=== PATIENT | male | born 1935 | race Caucasian/White ===

== ENCOUNTER 2016-12-25 15:16 | Emergency (ER) | payer MEDICAID, MEDICARE, OTHER ==
[2016-12-25 15:40] VITALS: BP 112/55
--- NOTE | 2016-12-25 15:58 | UC ---
Lower Extremity/Ankle HPI - HPI Summary HPI Summary: The patient comes in today for: 1. Onset: Palliative/provocative: Quality: Region: Severity: Time: Associated symptoms: * - History of Current Complaint Chief Complaint: UCLowerExtremity Stated Complaint: LEFT HEEL COMPLAINT Time Seen by Provider: 12/25/16 15:30 - Allergies/Home Medications Allergies/Adverse Reactions: Allergies Allergy/AdvReac Type Severity Reaction Status Date / Time Levofloxacin Allergy Unknown Verified 12/25/16 15:41 Reaction Details Lisinopril Allergy Unknown Verified 12/25/16 15:41 Reaction Details ALOE VESTA SOAP Allergy Unknown Uncoded 12/25/16 15:41 Reaction Details Home Medications: Home Medications Acetaminophen TAB* [Tylenol TAB*] 650 mg PO Q4H PRN 12/25/16 [History Confirmed 12/25/16] Adalimumab [Humira Pen] 40 mg SC SEE INSTRUCTIONS 12/25/16 [History Confirmed ] Albuterol Sulfate 0.63 mg IN Q6H PRN 12/25/16 [History Confirmed 12/25/16] Amiodarone TAB* [Cordarone TAB*] 200 mg PO DAILY 12/25/16 [History Confirmed 07/03] Dermadex 20 mg PO QID 12/25/16 [History Confirmed 12/25/16] Ferrous Sulfate TAB* 325 mg PO DAILY 12/25/16 [History Confirmed 12/25/16] Fexofenadine (NF) [Ludivina (NF)] 60 mg PO DAILY 12/25/16 [History Confirmed 07/03] Potassium Chlor TAB* [Klor Con ER TAB*] 10 meq PO DAILY 12/25/16 [History Confirmed 12/25/16] Pregabalin CAP(*) [Lyrica CAP(*)] 200 mg PO BID 12/25/16 [History Confirmed 07/03] Rivaroxaban TAB(*) [Xarelto 20 mg] 20 mg PO DAILY 12/25/16 [History Confirmed ] Roflumilast [Daliresp] 500 mcg PO DAILY 12/25/16 [History Confirmed 12/25/16] Spironolactone 50 mg PO DAILY 12/25/16 [History Confirmed 12/25/16] Torsemide TAB* [Demadex*] 20 mg PO QID 12/25/16 [History Confirmed 12/25/16] PMH/Surg Hx/FS Hx/Imm Hx Endocrine History Of: Reports: Diabetes Cardiovascular History Of: Reports: Cardiac Disorders, Hypertension - Surgical History Surgical History: Yes Surgery Procedure, Year, and Place: ABD SX. 1974--TEETH EXTRACTION - Social History Alcohol Use: None Substance Use Type: None Smoking Status (MU): Former Smoker When Did the Patient Quit Smoking/Using Tobacco: 2001 Physical Exam Vital Signs: Initial Vital Signs Temp 99.1 F 12/25/16 15:20 Pulse 62 12/25/16 15:20 Resp 18 12/25/16 15:20 BP 112/55 12/25/16 15:20 Pulse Ox 96 12/25/16 15:20
--- NOTE | 2016-12-25 16:19 | UC ---
Progress - Progress Note Progress Note: The patient comes in with his aid for reasons that are not clear. He states that he was sent in because someone said that he had a problem with his right foot, but he states that he does not have any problems with his right foot. He is under care for his left foot at the wound clinic. He states that he was sent in by Dr. Laughlin." The aide that was with him was not any help in clarifying the story why he is here and what he was to be seen for. Not getting a consistent history, I called DR. BEE's office and was told that the doctor is not in the states at this time. They tell me that the visiting nurse who saw the patient was concerned about a cough that he had productive of yellow sputum. The office staff told him to come in to see us. However, when this was presented to the patient, he said that he did not have any problems with a cough. The patient was told that he could be seen for a foot problem and/or his cough. But he stated that he did not feel that he needed to be seen and just wanted to leave. While I was checking with administration how to handle the patient's request to leave without being assessed, he ended up leaving the office.
== END 2016-12-25 15:45 | disposition left against medical advice (07) ==
LOC: UCCORT 15:16
DX: M79.672 Pain in left foot (principal); Z53.21 Procedure and treatment not carried out due to patient leaving prior to being seen by health care provider

== ENCOUNTER 2017-11-13 13:31 | Emergency (ER) | payer MEDICARE ==
[2017-11-13 14:47] VITALS: BP 111/56
[2017-11-13] MEDS ORDERED: Albuterol/Ipratropium NEB.SOL* Albuterol 2.5 MG/Ipratropium 0.5 MG 3 ML INH ONE (14:51)
--- NOTE | 2017-11-13 15:02 | UC ---
Respiratory Complaint HPI - HPI Summary HPI Summary: Pt is accompanied by caregiver. Pt has history of COPD and presents with c/o worsening cough, sob, and chest congestion X 1 week. Pt reports baseline O2 saturation at 90%. - History of Current Complaint Chief Complaint: UCRespiratory Stated Complaint: UPPER RESPRITORY Time Seen by Provider: 11/13/17 14:26 Hx Obtained From: Patient Onset/Duration: Gradual Onset, Lasting Days, Still Present, Worse Since - onset Timing: Constant Severity Initially: Mild Severity Currently: Moderate Pain Intensity: 7 Character: Cough: Productive Aggravating Factors: Deep Breaths, Recumbent Position Alleviating Factors: Bronchodilator Associated Signs And Symptoms: Positive: Wheezing, URI, Nasal Congestion Related History: Seasonal Allergies - Risk Factors Pulmonary Embolism Risk Factors: Negative Cardiac Risk Factors: Hypertension, Diabetes Pseudomonas Risk Factors: Chronic Lung Disease Tuberculosis Risk Factors: Diabetes - Allergies/Home Medications Allergies/Adverse Reactions: Allergies Allergy/AdvReac Type Severity Reaction Status Date / Time levofloxacin Allergy Unknown Verified 11/13/17 14:30 Reaction Details lisinopril Allergy Unknown Verified 11/13/17 14:30 Reaction Details ALOE VESTA SOAP Allergy Unknown Uncoded 11/13/17 14:30 Reaction Details PMH/Surg Hx/FS Hx/Imm Hx Previously Healthy: Yes Cardiovascular History: Cardiac Disease, Hypertension, Pacemaker/ICD Respiratory History: COPD - Surgical History Surgical History: Yes Surgery Procedure, Year, and Place: ABD SX. 1974--TEETH EXTRACTION - Family History Known Family History: Positive: Cardiac Disease - Social History Occupation: Disabled Lives: Alone Alcohol Use: None Substance Use Type: None Smoking Status (MU): Former Smoker Have You Smoked in the Last Year: No When Did the Patient Quit Smoking/Using Tobacco: 2001 Review of Systems Constitutional: Fatigue Skin: Negative Eyes: Negative ENT: Sinus Congestion Respiratory: Shortness Of Breath, Cough Cardiovascular: Chest Pain Gastrointestinal: Negative Genitourinary: Negative Motor: Weakness Neurovascular: Negative Musculoskeletal: Negative Neurological: Negative Psychological: Negative Is Patient Immunocompromised?: No All Other Systems Reviewed And Are Negative: Yes Physical Exam Triage Information Reviewed: Yes Appearance: Ill-Appearing, Obese Vital Signs: Initial Vital Signs Temp 97.9 F 11/13/17 14:33 Pulse 60 11/13/17 14:33 Resp 24 11/13/17 14:33 BP 111/56 11/13/17 14:33 Pulse Ox 90 11/13/17 14:33 Vital Signs Reviewed: Yes Eye Exam: Normal ENT: Positive: Nasal congestion Respiratory: Positive: Decreased breath sounds, Wheezing Cardiovascular: Positive: Bradycardia Musculoskeletal Exam: Normal Neurological Exam: Normal Psychological Exam: Normal Skin Exam: Normal UC Diagnostic Evaluation - Laboratory O2 Sat by Pulse Oximetry: 90 - Radiology Radiology Interpretation Completed By: Radiologist - IMPRESSION: HYPERINFLATION WITH LEFT BASILAR INFILTRATE OR ATELECTASIS. SUGGEST FOLLOW-UP Respiratory Course/Dx - Differential Dx/Diagnosis Differential Diagnosis/HQI/PQRI: Bronchitis, Exacerbation Of COPD, Pulmonary Embolism Provider Diagnoses: Pneumonia Discharge - Sign-Out/Discharge Documenting (check all that apply): Discharge - Discharge Plan Condition: Stable Disposition: HOME Prescriptions: Albuterol HFA INHALER* [Ventolin HFA Inhaler*] 2 puff INH Q4H PRN #1 mdi PRN Reason: Sob/Wheezing Amoxicillin/Clavulanate TAB* [Augmentin TAB 875*] 875 mg PO Q12H #20 tab Cetirizine* [ZyrTEC 10 MG TAB*] 10 mg PO DAILY #20 tab DOXYcycline CAP(*) [DOXYcycline 100MG CAP(*)] 100 mg PO BID #20 cap DOXYcycline CAP(*) [DOXYcycline 100MG CAP(*)] 100 mg PO Q12H #14 cap methylPREDNISolone TAB* [Medrol TAB*] 4 - 8 mg PO .SEE SHANELL #1 shanell Patient Education Materials: Pneumonia (ED) Referrals: Bety Cornelius MD [Primary Care Provider] - If Needed - Billing Disposition and Condition Condition: STABLE Disposition: HOME
--- NOTE | 2017-11-13 16:00 | RAD ---
INDICATION: Cough. COPD COMPARISON: July 07, 2011 TECHNIQUE: PA and lateral dual-energy views were obtained. FINDINGS: Bones/Soft Tissues: There are no acute bony findings. Cardiomediastinal: The cardiomediastinal silhouette is normal. Lungs: There is hyperinflation. There is infiltrative change in the left lung base. This could represent infectious infiltrate or atelectasis. The remaining lung lincoln are clear. Pleura: There are no pleural effusions. Other: None IMPRESSION: HYPERINFLATION WITH LEFT BASILAR INFILTRATE OR ATELECTASIS. SUGGEST FOLLOW-UP CLINICALLY INDICATED.
== END 2017-11-13 16:13 | disposition home or self-care (01) ==
LOC: UCCORT 13:31
DX: J18.9 Pneumonia, unspecified organism (principal); R09.89 Other specified symptoms and signs involving the circulatory and respiratory systems; Z87.891 Personal history of nicotine dependence; Z88.3 Allergy status to other anti-infective agents; Z88.8 Allergy status to other drugs, medicaments and biological substances
CPT/HCPCS: 71046; 93005; 99212; A9270-GY; G0463

== ENCOUNTER 2018-01-15 17:00 | Emergency (ER) | payer MEDICARE, OTHER, MEDICAID ==
[2018-01-15 18:43] VITALS: BP 107/55
--- NOTE | 2018-01-15 19:04 | UC ---
Laceration HPI - HPI Summary HPI Summary: 82 y/o male presents to the urgent care c/o here with aide/Noy--laceration to right cooney 01/12/18, pt uses electric w/c, ran leg into door frame; also has an open area of skin on lower right cooney, leg swelling and weeping - History Of Current Complaint Chief Complaint: UCLaceration Stated Complaint: RIGHT LEG LACERATION Time Seen by Provider: 01/15/18 19:02 Hx Obtained From: Patient, Family/Table Runner - mother Laceration Location: Foot - RT lower leg Mechanism Of Injury: Sharp Trauma Onset/Duration: Lasting Days - 2 days, Still Present Severity: Severe Pain Intensity: 0 Pain Scale Used: 0-10 Numeric Aggravating Factors: Position, Movement, Other: - touch Full Body (No Head): 1 - laceration about 2.0cm in size Related History: Dominant Hand Right - Allergies/Home Medications Allergies/Adverse Reactions: Allergies Allergy/AdvReac Type Severity Reaction Status Date / Time levofloxacin Allergy Unknown Verified 01/15/18 18:43 Reaction Details lisinopril Allergy Unknown Verified 01/15/18 18:43 Reaction Details ALOE VESTA SOAP Allergy Unknown Uncoded 01/15/18 18:43 Reaction Details Home Medications: Home Medications Cetirizine* [ZyrTEC 10 MG TAB*] 10 mg PO BEDTIME 01/15/18 [History Confirmed 09/03] PMH/Surg Hx/FS Hx/Imm Hx Previously Healthy: Yes Endocrine History: Diabetes Cardiovascular History: Hypertension, Atrial Fibrillation - Surgical History Surgical History: Yes Surgery Procedure, Year, and Place: colon/rupture. 1974--TEETH EXTRACTION - Family History Known Family History: Positive: Cardiac Disease, Hypertension - Social History Occupation: Retired Lives: With Family Alcohol Use: None Substance Use Type: None Smoking Status (MU): Former Smoker Have You Smoked in the Last Year: No When Did the Patient Quit Smoking/Using Tobacco: 2001 Physical Exam - Summary Physical Exam Summary: Vital Signs Reviewed: Yes General: well developed, well nourished male sitting in the examining table w/o any apparent distress Eye Exam: Normal Eyes: Positive: Conjunctiva Clear - PERRLA, EOMI, fundi grossly normal ENT: Positive: Normal ENT inspection, Hearing grossly normal, Pharynx normal, TMs normal Neck: Positive: Supple, Nontender, No Lymphadenopathy Respiratory: Positive: Chest non-tender, Lungs clear, Normal breath sounds, No respiratory distress Cardiovascular: Positive: RRR, No Murmur, Pulses Normal, Brisk Capillary Refill Abdomen Description: Positive: Nontender, No Organomegaly, Soft. Negative: CVA Tenderness (R), CVA Tenderness (L) Bowel Sounds: Positive: Present Musculoskeletal: Positive: Strength Intact, ROM Intact, No Edema Neurological: Positive: Alert, Muscle Tone Normal Psychological Exam: Normal Skin: Positive:Lateral side of RT elbow near the lateral epicondyle with a linear superficial laceration about 2.5cm in size, bleeding, no foreign body observed. mild tenderness to palpation, mild ecchymosis around elbow. FROM of RT arm, sensation intact, capillary refill brisk, and pulses WNL. Triage Information Reviewed: Yes Vital Signs: Initial Vital Signs Temp 97.6 F 01/15/18 18:30 Pulse 60 01/15/18 18:30 Resp 16 01/15/18 18:30 BP 107/55 01/15/18 18:30 Pulse Ox 98 01/15/18 18:30 Laceration Course/Dx - Differential Dx - Laceration/Wound Differental Diagnoses: Abrasion, Cellulitis, Laceration, Puncture Wound Provider Diagnoses: 1- RT lower leg laceration. 2- RT lower leg laceration Discharge - Discharge Plan Condition: Stable Disposition: TRANS HIGHER LVL OF CARE FAC Patient Education Materials: Cellulitis (ED) Referrals: Bety Cornelius MD [Primary Care Provider] - Additional Instructions: I think you need a higher level or care for your cellulitis and laceration of your RT lower leg. I highly recommend you to go to the [facility] for further evaluation and treatment. The risks of not going can be , sepsis, heart attack, etc. I spoke to the ER attending . They are expecting you. - Billing Disposition and Condition Condition: STABLE Disposition: [facility]
== END 2018-01-15 19:36 | disposition short-term general hospital (02) ==
LOC: UCCORT 17:00
DX: S81.811A Laceration without foreign body, right lower leg, initial encounter (principal); W22.8XXA Striking against or struck by other objects, initial encounter; Y92.9 Unspecified place or not applicable; Z99.3 Dependence on wheelchair; Z87.891 Personal history of nicotine dependence; Z88.8 Allergy status to other drugs, medicaments and biological substances; Z88.3 Allergy status to other anti-infective agents
CPT/HCPCS: 99212; G0463

== ENCOUNTER 2018-02-09 11:15 | Emergency (ER) | payer OTHER, MEDICAID ==
[2018-02-09 12:29] VITALS: BP 103/57
--- NOTE | 2018-02-09 12:39 | UC ---
General HPI - HPI Summary HPI Summary: Patient presents accompanied by one of his caretakers. He is complaining of drainage from his eyes, drainage from his right ear and sinus congestion with pressure. He states the sinus symptoms have been present for about 2 weeks. He states that he recently had a hearing aid placed in his right ear and they said that it was clear. He denies any pain from the ear. Does admit to having a little bit of nausea with this illness but states that he has not had any vomiting or diarrhea. , He also denies dysuria fever, chills. He denies any cough, chest pain or short of breath. He does have a history of COPD but states that that is not an issue now. He does have a chronic wound to his left leg and heel. The wound on his cooney was bleeding so he went to the emergency room and they Steri-Stripped it. He is scheduled to follow-up with [facility] in one week. Patient is a diabetic. He denies any history of gastroparesis. He states that his blood sugar will usually run around 100 but has gone up about 15 points with this illness. - History of Current Complaint Chief Complaint: UCGeneralIllness Stated Complaint: CONGESTION EYES/EARS/SKIN COMPLAINT Time Seen by Provider: 02/09/18 12:30 Hx Obtained From: Patient, Family/Lead Data Architect Onset/Duration: Gradual Onset Timing: Constant Pain Intensity: 6 Aggravating: nothing Alleviating: nothing Associated Signs & Symptoms: Positive: Nausea. Negative: Chest Pain, Diarrhea, Dysuria, Fever, SOB, Vomiting, Weakness - Allergy/Home Medications Allergies/Adverse Reactions: Allergies Allergy/AdvReac Type Severity Reaction Status Date / Time levofloxacin Allergy Unknown Verified 01/15/18 18:43 Reaction Details lisinopril Allergy Unknown Verified 01/15/18 18:43 Reaction Details ALOE VESTA SOAP Allergy Unknown Uncoded 01/15/18 18:43 Reaction Details PMH/Surg Hx/FS Hx/Imm Hx - Additional Past Medical History Additional PMH: allergies. anemia. chronic wound L cooney and L heel Endocrine History: Diabetes Cardiovascular History: Hypertension, Atrial Fibrillation Respiratory History: COPD - Surgical History Surgical History: Yes Surgery Procedure, Year, and Place: colon/rupture. 1974--TEETH EXTRACTION - Family History Known Family History: Positive: Cardiac Disease, Hypertension - Social History Occupation: Retired Lives: Alone Alcohol Use: None Substance Use Type: None Smoking Status (MU): Former Smoker Have You Smoked in the Last Year: No When Did the Patient Quit Smoking/Using Tobacco: 2001 - Immunization History Vaccination Up to Date: Yes Review of Systems Constitutional: Negative Skin: Other - chronic wounds L cooney/L heel Eyes: Negative ENT: Nasal Discharge, Sinus Congestion, Sinus Pain/Tenderness Respiratory: Negative Cardiovascular: Negative Gastrointestinal: Nausea Genitourinary: Negative Motor: Negative Neurovascular: Negative Musculoskeletal: Edema - chronic leg edema Neurological: Negative Psychological: Negative All Other Systems Reviewed And Are Negative: Yes Physical Exam Triage Information Reviewed: Yes Appearance: Well-Appearing Vital Signs: Initial Vital Signs Temp 98.5 F 02/09/18 12:22 Pulse 59 02/09/18 12:22 Resp 18 02/09/18 12:22 BP 103/57 02/09/18 12:22 Pulse Ox 94 02/09/18 12:22 Vital Signs Reviewed: Yes Eyes: Positive: Other: - Conjunctiva mildly injected bilaterally with crusting on the lashes. No periorbital edema or erythema. ENT: Positive: Pharynx normal, Nasal congestion, TMs normal - Small amount of wax in right canal but no exudate. No pain with tug of the auricle or pressure on tragus. No auricular adenopathy., Sinus tenderness. Negative: Nasal drainage, Trismus, Muffled voice Neck: Positive: Supple, Nontender, No Lymphadenopathy Respiratory: Positive: Lungs clear, Normal breath sounds, No respiratory distress Cardiovascular: Positive: RRR, No Murmur, Other: - arrythmioa not detected Abdomen Description: Positive: Nontender, No Organomegaly, Soft. Negative: CVA Tenderness (R), CVA Tenderness (L), Distended, Guarding Bowel Sounds: Positive: Present Musculoskeletal: Positive: ROM Intact, Edema @ - mild BLE's(chronic and unchanged per pt/animal caretaker supervisor) Neurological: Positive: Alert Psychological: Positive: Age Appropriate Behavior Skin Exam: Normal, Other - Both lower extremities exposed. Mild edema noted. Mild chronic venous stasis changes with some drying of the skin. Thick brittle toenails. Left lower extremity below the knee shows the chronic wound to the right cooney that is ulcerated. It is not warm, tender, fluctuant and no odor. Wound on the heel is dry without drainage, erythema, fluctuance or tenderness. The feet have gross sensorivascular motor function. Course/Dx - Course Course Of Treatment: Patient's exam is consistent with conjunctivitis and sinusitis. The wounds of the left lower extremity are not concerning for secondary infection. Nonfasting blood sugar here is 148. He has no signs of acute abdomen. Patient and animal caretaker supervisor confirm that he had x-rays of his left lower leg during his emergency room visit 4 days ago. They report this as unremarkable. I'll treat this patient with Augmentin for his sinuses, Polytrim for the conjunctivitis and a limited number of Zofran for his nausea. Should be noted this patient is adamant he will not follow up with the emergency room thus close follow-up with his primary care has been stressed. Patient has follow-up with wound care early next week. We did irrigate his wounds with sterile sodium chloride and redress them here. no concern for DKA - Differential Dx - Multi-Symptom Provider Diagnoses: Sinusitis, conjunctivitis, chronic wounds LLE. Nausea. Discharge - Sign-Out/Discharge Documenting (check all that apply): Discharge/Admit/Transfer - Discharge Plan Condition: Stable Disposition: HOME Prescriptions: Amoxicillin/Clavulanate TAB* [Augmentin TAB 875*] 875 mg PO BID 7 Days #14 tab Ondansetron ODT TAB* [Zofran 4 MG Odt TAB*] 4 mg PO Q6H PRN #12 tab.odt PRN Reason: Nausea Polymyx/Trimethoprim OPTH* [Polytrim OPHTH*] 1 drop BOTH EYES Q3H 5 Days #1 btl Patient Education Materials: Sinusitis (ED), Conjunctivitis (ED), Acute Nausea and Vomiting (ED) Referrals: Bety Cornelius MD [Primary Care Provider] - 3 Days Additional Instructions: go to er for any worsening. resume wound care, change dressing in 2 days or when soiled. - Billing Disposition and Condition Condition: STABLE Disposition: Home
== END 2018-02-09 13:40 | disposition home or self-care (01) ==
LOC: UCCORT 11:15
DX: J32.9 Chronic sinusitis, unspecified (principal); H10.9 Unspecified conjunctivitis; S81.802D Unspecified open wound, left lower leg, subsequent encounter; X58.XXXD Exposure to other specified factors, subsequent encounter; Z88.1 Allergy status to other antibiotic agents; Z88.8 Allergy status to other drugs, medicaments and biological substances; E11.9 Type 2 diabetes mellitus without complications; I10 Essential (primary) hypertension; Z87.891 Personal history of nicotine dependence
CPT/HCPCS: 99212; G0463

== ENCOUNTER 2018-03-28 19:47 | Emergency (ER) | payer MEDICARE, MEDICAID ==
[2018-03-28 20:07] VITALS: BP 105/48
[2018-03-28] MEDS ORDERED: Ipratropium 0.5MG/2.5ML NEB* 0.5 MG/2.5 ML NEB.SOLN INH ONE (20:42)
[2018-03-28] MEDS ORDERED: Albuterol 2.5 MG/3 ML NEB.SOL* (0.083%) INH ONE (20:42)
[2018-03-28] MEDS ORDERED: Amoxicillin PO (*) 500 MG CAP PO ONE (21:07)
[2018-03-28] MEDS ORDERED: Amoxicillin PO (*) 250 MG CAP PO ONE (21:07)
[2018-03-28] MEDS ORDERED: predniSONE TAB* 20 MG PO ONE (21:08)
--- NOTE | 2018-03-28 21:08 | UC ---
Respiratory Complaint HPI - HPI Summary HPI Summary: The patient is a 82-year-old male who presents here with a two-week history of cough and wheezing. The first words he said to me when I entered the room were "I'm not going to the emergency room". He denies any chest pain. He has chronic dyspnea and he states this is at his baseline. He has not had a fever. His cough is occasionally productive. He has chronic lower extremity edema. States that this has not worsened. He has been using his metered-dose inhaler. He has not been using his nebulizer. - History of Current Complaint Chief Complaint: UCRespiratory Stated Complaint: COUGH Time Seen by Provider: 03/28/18 20:35 Hx Obtained From: Patient Onset/Duration: Gradual Onset, Lasting Weeks Timing: Constant Severity Initially: Mild Severity Currently: Moderate Pain Intensity: 0 Pain Scale Used: 0-10 Numeric Character: Cough: Productive - at times Aggravating Factors: Nothing Alleviating Factors: Bronchodilator Associated Signs And Symptoms: Positive: Dyspnea - at baseline, Chills - ?, Wheezing, Edema - chronic. Negative: Fever, Pleuritic Chest Pain, Hemoptysis, Dizziness, Calf Pain, Calf Swelling, URI, Nasal Congestion, Hoarseness, Sinus Discomfort - Allergies/Home Medications Allergies/Adverse Reactions: Allergies Allergy/AdvReac Type Severity Reaction Status Date / Time levofloxacin Allergy Unknown Verified 03/28/18 20:09 Reaction Details lisinopril Allergy Unknown Verified 03/28/18 20:09 Reaction Details ALOE VESTA SOAP Allergy Unknown Uncoded 03/28/18 20:09 Reaction Details Home Medications: Home Medications guaiFENesin [Mucinex] 600 mg PO BID 03/28/18 [History Confirmed 03/28/18] PMH/Surg Hx/FS Hx/Imm Hx Previously Healthy: No Cardiovascular History: Hypertension, Atrial Fibrillation Respiratory History: COPD, Bronchitis, Pneumonia - Surgical History Surgical History: Yes Surgery Procedure, Year, and Place: colon/rupture. 1974--TEETH EXTRACTION - Family History Known Family History: Positive: Cardiac Disease, Hypertension - Social History Alcohol Use: None Substance Use Type: None Smoking Status (MU): Former Smoker Have You Smoked in the Last Year: No When Did the Patient Quit Smoking/Using Tobacco: 2001 - Immunization History Vaccination Up to Date: Yes Review of Systems Constitutional: Chills, Fatigue Skin: Negative Eyes: Negative ENT: Negative Respiratory: Shortness Of Breath, Cough Cardiovascular: Negative Gastrointestinal: Negative Genitourinary: Negative Motor: Negative Neurovascular: Negative Musculoskeletal: Negative Neurological: Negative Psychological: Negative Is Patient Immunocompromised?: No All Other Systems Reviewed And Are Negative: Yes Physical Exam Triage Information Reviewed: Yes Appearance: Well-Appearing, No Pain Distress, Well-Nourished Vital Signs: Initial Vital Signs Temp 99.3 F 03/28/18 20:00 Pulse 60 03/28/18 20:00 Resp 19 03/28/18 20:00 BP 105/48 03/28/18 20:00 Pulse Ox 94 03/28/18 20:00 Vital Signs Reviewed: Yes Eyes: Positive: Conjunctiva Clear ENT: Negative: Hearing grossly normal, Nasal congestion, Nasal drainage, Trismus , Muffled voice, Hoarse voice Neck: Positive: Supple Respiratory: Positive: No respiratory distress, Wheezing. Negative: Accessory muscle use Cardiovascular: Positive: No Murmur. Negative: RRR Musculoskeletal: Positive: Edema @ - pretibial Neurological: Positive: Alert Psychological Exam: Normal UC Diagnostic Evaluation - Laboratory O2 Sat by Pulse Oximetry: 94 - low normal Re-Evaluation - Re-Evaluation First Eval Re-Evaluation Time: 21:10 Change: Unchanged - reports little subjective improvement but lungs clear after. Respiratory Course/Dx - Differential Dx/Diagnosis Provider Diagnoses: acute bronchitis with bronchospasm Discharge - Sign-Out/Discharge Documenting (check all that apply): Patient Departure - Discharge Plan Condition: Stable Disposition: HOME Prescriptions: Amoxicillin PO (*) [Amoxicillin 875 MG (*)] 875 mg PO BID #14 tab predniSONE [Deltasone 20 MG TAB] 20 mg PO DAILY #4 tab Patient Education Materials: Acute Bronchitis (ED) Referrals: Bety Cornelius MD [Primary Care Provider] - 2 Days Additional Instructions: to ER for new or worsening symptoms - Billing Disposition and Condition Condition: STABLE Disposition: Home
== END 2018-03-28 21:22 | disposition home or self-care (01) ==
LOC: UCCORT 19:47
DX: J20.9 Acute bronchitis, unspecified (principal); Z88.1 Allergy status to other antibiotic agents; Z88.8 Allergy status to other drugs, medicaments and biological substances; I10 Essential (primary) hypertension; Z87.891 Personal history of nicotine dependence
CPT/HCPCS: 99213; A9270-GY; G0463; J7512

== ENCOUNTER 2018-06-02 11:50 | Emergency (ER) | payer MEDICARE, MEDICAID ==
--- OUTSIDE RECORDS SUMMARY | 2018-06-02 12:09 | XMS REPORT ---
:1935 External Reference #:[id number] Author Organization [facility] Address [address], [address] [place] [address] Phone [phone] Care Team Providers Name Role Phone Bety Cornelius MD Care Team Information Manager Books Unavailable Bety Cornelius MD Primary Care Physician Unavailable Payers Type Date Identification Numbers Payment Provider Subscriber Commercial Policy Number: [id number] [employer] Medicare Mina Rhodes SR Group Number: [id number] [address] PayID: [id number] [place] [address] Medicaid Policy Number: [id number] Medicaid Mina Rhodes SR PayID: [id number] [address] [place] [address] Problems Date Description Provider Status Onset: 07/27/2012 Congestive heart failure Jose Guan M.D., FACC Active Note: diastolic 2014 Onset: 07/27/2012 Benign essential hypertension Jose Guan M.D., Active FACC Onset: 07/27/2012 Atrial fibrillation Jose Guan M.D., Active FACC Onset: 03/14/2013 Type II diabetes mellitus [place] Hunt, ERNESTINE, Active uncontrolled APPLIED PSYCHOLOGY TEACHER Note: -> neuropathy Onset: 12/21/2015 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 Onset: 12/21/2015 Rheumatoid arthritis Herminio Hinton MD Active Onset: 12/21/2015 Narcolepsy Herminio Hinton MD Active Onset: 12/21/2015 Gastroesophageal reflux disease Herminio Hinton MD Active Onset: 12/21/2015 H/O: peptic ulcer Herminio Hinton MD Active Note: gastric, NSAID-induced, healed 2009 Onset: 12/21/2015 Plummer's esophagus Herminio Hinton MD Active Note: 1st upper 2009 Onset: 12/21/2015 Coronary arteriosclerosis Herminio Hinton MD Active Onset: 12/21/2015 Depressive disorder Herminio Hinton MD Active Onset: 12/21/2015 Diverticular disease of colon Herminio Hinton MD Active Onset: 12/21/2015 Iron deficiency anemia Herminio Hinton MD Active Note: 2014 ferritin 49 Onset: 03/31/2016 Sinus node dysfunction [place] Hunt, Active MSN, APPLIED PSYCHOLOGY TEACHER Onset: 03/31/2016 Cardiac pacemaker in situ [place] Hunt, Active MSN, APPLIED PSYCHOLOGY TEACHER Onset: 12/21/2015 Allergic rhinitis Herminio Hinton MD Active Onset: 02/27/2017 Type 2 diabetes mellitus with Bety Cornelius MD Active ulcer Onset: 04/01/2017 Edema Bety Cornelius MD Active Onset: 05/22/2017 Knee pain Mabel Nunn MD Active Onset: 05/22/2017 Walking disability Mabel Nunn MD Active Onset: 05/22/2017 Pressure ulcer of left heel, Mabel Nunn MD Active unspecified stage Onset: 07/15/2017 Peripheral sensory neuropathy Bety Cornelius MD Active due to type 2 diabetes mellitus Onset: 08/05/2017 Senile asthenia Mabel Nunn MD Active Onset: 09/16/2017 Hyperlipidemia Bety Cornelius MD Active Onset: 10/01/2017 Localized, primary Lloyd, Samia, 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 Onset: 01/07/2018 Aortic valve disorder Jose Guan M.D., Active FAC Onset: 03/27/2016 Chronic diastolic heart failure [place] Hunt, Inactive MSN, APPLIED PSYCHOLOGY TEACHER Inactive: 07/16/2017 Onset: 02/27/2017 Disturbance in sleep behavior Bety Cornelius MD Inactive Inactive: 07/16/2017 Onset: 04/01/2017 Chronic obstructive lung disease Bety Cornelius MD Inactive Inactive: 07/16/2017 Onset: 02/16/2017 Diabetes mellitus Kiersten Mendieta, APPLIED PSYCHOLOGY TEACHER Inactive Inactive: 07/16/2017 Onset: 07/15/2017 Lump in left breast Bety Cornelius MD Inactive Inactive: 07/16/2017 Onset: 03/31/2016 Atrial flutter [place] Hunt, ERNESTINE, APPLIED PSYCHOLOGY TEACHER Inactive Inactive: 07/16/2017 Onset: 05/22/2017 Morbid obesity Mabel Nunn MD Inactive Inactive: 07/16/2017 Onset: 04/01/2017 Chronic obstructive pulmonary disease w Bety Cornelius MD Resolved (acute) exacerbation Resolved: 07/16/2017 Onset: 12/11/2017 Cough Bety Cornelius MD Resolved Resolved: 04/16/2018 Onset: 06/03/2017 Lump in left breast Bety Cornelius MD Resolved Resolved: 04/16/2018 Family History Date Family Member(s) Problem(s) Comments Father due to Pneumonia () Father Chronic Obstructive Pulmonary Disease (COPD) Father Unknown stomach problems Mother due to Unknown Causes () First Son Cancer throat Second Son Diabetes First Daughter Cancer First Sister Lupus Paternal Grandfather due to Unknown Causes () Paternal Grandmother due to Unknown Causes () Maternal Grandfather due to Unknown Causes () Maternal Grandmother due to Unknown Causes () Social History Type Date Description Comments Marital Status Lives With Alone HAS DAILY HH AIDE Home Environment Lives Alone Diet Patient is on a low sodium diet Diet Patient is on a low fat diet Diet Patient is on a low sugar diet Diet Patient is on a low carb diet 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 Work Status Retired Hand Dominance Right-handed Cigarette Use 2001 Quit 1 ppd 40+yrs ETOH Use Denies alcohol use Smoking 2001 Patient is a former smoker Recreational Drug Use Denies Drug Use Daily Caffeine Consumes on average 2 cups of regular coffee per day Allergies, Adverse Reactions, Alerts Date Description Reaction Status Severity Comments 08/03/2009 Levofloxacin active 01/10/2014 Metolazone active 11/21/2015 Lisinopril active 03/31/2016 Lipitor active Medications Medication Date Status Form Strength Qnty SIG Indications Ordering Provider Nystatin 03/17 Active Powder [id number] 60gm apply to Adryan t/GM affected MD Bety areas up to 4x/day after washing and drying well Guaifenex LA 02/23 Active Tablets ER 600mg 180ta 1 by mouth 12HR bs twice a MD Bety Ondansetron HCL 02/05 Active Tablets 8mg 24tab one every R11.0 Clune s 8 hours as Jenniferl needed for eigh, APPLIED PSYCHOLOGY TEACHER nausea Spironolactone 09/24 Active Tablets 100mg 90tab 1/2 by I50.32 s mouth MD Bety every day Onetouch Lancets 04/03 Active Misc 100un check E11.621 its glucose MD Bety once a day at varying tmes Xtampza ER 04/01 Active C12a 27mg 30uni 1 capsule ts at bedtime MD Bety pain clinic prescribes Face Mask With 04/01 Active for J44.9 , nebulizer MD Bety use adult size Onetouch Verio 03/18 Active Kit w/Device 1unit check E11.621 Adryan Bloodglucose s glucose MD Bety Monitoring System once a day at alternatin g times Onetouch Verio 03/18 Active Strips 100un test E11.621 its glucose 2x MD Bety a day at alternatin g times dx e 11.42 Torsemide 02/06 Active Tablets 20mg 60tab 2 by mouth I50.32 Hunt, s every day [place] Dominguez , MSN, APPLIED PSYCHOLOGY TEACHER Klor-Con 10 03/27 Active Tablets ER 10Meq 30tab Take One I50.32 Marilee, s Tablet By [place] Mouth Angelica Every Day , MSN, APPLIED PSYCHOLOGY TEACHER Ferrous Sulfate 12/20 Active Tablets 325(65Fe) 90tab 1 by mouth D50.9 Vatra, mg s every day harinder Durham MD meal Humira Active PSKT 40mg/0.8M inject q 2 Unknown /0000 L weeks Tylenol Extra Active Tablets 500mg 1-2 tabs Unknown Strength /0000 by mouth every 4 hours as needed Albuterol Sulfate Active Nebulizer (2.5mg/3M 75ml 1 vial in / L) 0.083% nebulizer MD Bety every 4h if needed for sob, wheezing or persistent cough Xarelto Active Tablets 20mg 30tab 1 by mouth Hunt, s every day [place] Dominguez , MSN, [facility] Trazodone HCL Active Tablets 50mg 180ta 2 by mouth bs @ at MD Bety bedtime Ventolin HFA Active Aerosol 108(90Bas take 2 Unknown e) puffs mcg/Act every 6 hours as needed for shortness of breath. Lyrica Active Capsules 100mg three Unknown /0000 times daily Daliresp Active Tablets 500mcg 90tab Take One s Tablet By MD Bety Mouth Every Day Ludivina Allergy Active Tablets 60mg 1 tab by Unknown mouth every day Levocetirizine 12/17 Hx Tablets 5mg 90tab 1 by mouth Adryan Dihydrochloride /2017 s every day MD Bety Doxycycline 12/04 Hx Capsules 100mg 20cap 1 by mouth J18.9 Clune, Monohydrate /2017 s twice a Bettel - day aurea, APPLIED PSYCHOLOGY TEACHER 12/14 Nystatin 11/26 Hx Cream [id number] 90gm apply t/GM twice a MD Bety day to affected areas Spironolactone 06/03 Hx Tablets 100mg 1 by mouth I50.32 every day MD Bety - 09/24 Isosorbide 05/06 Hx Tablets ER 30mg 90tab Take One I50.32 Adryan, Mononitrate ER 24HR s Tablet By MD Bety Mouth Every Morning Loratadine 05/04 Hx Tablets 10mg 30tab take one Adryan s tablet by MD Bety mouth every day as Needed For Allergies Ludivina Allergy 04/03 Hx Tablets 180mg J44.1 MD Bety - 04/03 Fexofenadine HCL 04/03 Hx Tablets 180mg 90tab 1 by mouth J44.1 Adryan s every day MD Bety - 05/04 Januvia 04/01 Hx Tablets 100mg 30tab take 08/20 E11.621 Adryan s tab by MD Bety - mouth 04/01 every day Januvia 04/01 Hx Tablets 50mg 30tab 1 by mouth E11.621 Adryan s every day MD Bety - at 05/06 breakfast Amoxicillin/Clavul 03/27 Hx Tablets 875-125mg 20tab one by [email or web address] Haye Potassium s mouth Jenniferl - twice a eigh, [facility] 04/06 day x days Loradamed 03/27 Hx Tablets 10mg 90tab 1 by mouth Kiko Mendieta, s every day Jenniferl - eigh, [facility] 03/27 Mucinex 03/27 Hx Tablets ER 600mg 60tab one tab by Kiko Mendieta, 12HR s mouth Jenniferl twice a eigh, [facility] day if neede Loratadine 03/27 Hx Capsules 10mg 30cap one po qd Kiko Mendieta, s Jenniferl - eigh, [facility] 04/03 Modafinil 02/27 Hx Tablets 200mg 1 tab by Adryan mouth MD Bety - 04/01 Glipizide 02/27 Hx Tablets 5mg 30tab take 1 E11.621 Adryan s tablet by MD Bety - mouth at 04/01 breakfast, this replaces metformin Metolazone 01/30 Hx Tablets 2.5mg 15tab 1 tab by Carmelo s mouth take MD Francesca - 30 min 04/16 prior to in the morning torsemide dosE if needed for increased swelling Amiodarone HCL 11/17 Hx Tablets 200mg 90tab Take One I50.32 Roge s Tablet By Jose M.D., 01/07 Every Day [facility] Metolazone 04/07 Hx Tablets 5mg 30tab 1 by mouth I50.32 Marilee, /2015 s every day [place] 1/2 hour Angelica before the , MSN, in the [facility] morning furosemide as needed Kerlex And 4X4 03/31 Hx 10Eac Change S91.235S Hunt, Gauze Bandages /2015 h bandage [place] twice a Simonetta day until , MSN, healed. APPLIED PSYCHOLOGY TEACHER Torsemide 03/27 Hx Tablets 20mg 120ta 2 tabs by I50.32 Marilee, bs mouth [place] - twice a 02/06 day , MSN, APPLIED PSYCHOLOGY TEACHER Metolazone 03/27 Hx Tablets 5mg 30tab 1 by mouth I50.32 Hunt, s every day [place] - 1/2 hour 04/07 before the , MSN, in the [facility] morning torsemide Keflex 03/27 Hx Capsules 500mg 21cap 1 tab by L03.818 Marilee, s mouth [place] three Simonetta times a , MSN, day for APPLIED PSYCHOLOGY TEACHER one week Omeprazole 12/20 Hx Capsules 10mg 1 by mouth Jamaal, every day Simon Durham MD 12/20 Omeprazole 12/20 Hx Capsules 20mg 90cap 1 by mouth Vat, DR weathers every day MD Herminio Trazodone HCL 04/03 Hx Tablets 50mg 30tab 1 by mouth monse s Jose charles M.D., bedtime [facility] prn Hydrochlorothiazid 03/05 Hx Tablets 25mg 30tab Take One Roge s Tablet By Jose M.D., 11/20 Every Day [facility] Furosemide 01/10 Hx Tablets 40mg 180ta 1 po bid 428.0 Jose tolentino M.D., [facility] Hydrochlorothiazid 01/10 Hx Tablets 25mg 30tab Take One Roge s Tablet By Jose M.D., Every Day [facility] Hydrochlorothiazid 12/20 Hx Tablets 50mg 30tab 1 po qd Roge Jose weathers M.D., [facility] Metolazone 12/12 Hx Tablets 5mg 30tab 1 po qd Juanis Jose weathers M.D., 12/20 [facility] Furosemide 11/04 Hx Tablets 40mg 60tab 2 po qday 428.0 monse Jose weathers M.D., 01/10 [facility] Metolazone 11/04 Hx Tablets 2.5mg 30tab po qd s min before , Jose Gurrola M.D., 12/12 am for 3 [facility] days (take one today) Furosemide 08/02 Hx Tablets 20mg 2 po qd 428.0 , Jose Gurrola M.D., 11/04 [facility] Xarelto 10/21 Hx Tablets 15mg 90tab 1 by mouth Hunt, s every day ERNESTINE Ribera, APPLIED PSYCHOLOGY TEACHER Furosemide 09/17 Hx Tablets 80mg 1 by mouth 428.0 every day , Jose Gurrola M.D., [facility] Metolazone 09/17 Hx Tablets 5mg 90tab 1 by mouth Hnut, s every [place] other day ERNESTINE Dominguez, APPLIED PSYCHOLOGY TEACHER Furosemide 08/20 Hx Tablets 80mg 60tab 1 tab by 428.0 Hunt, s mouth [place] - twice a Pooletta 09/17 day , MSN, /2012 APPLIED PSYCHOLOGY TEACHER Xarelto 07/28 Hx Tablets 20mg 30tab 1 by mouth Hunt, s every day [place] - Angelica 10/21 , MSN, /2012 APPLIED PSYCHOLOGY TEACHER Metolazone 07/27 Hx Tablets 5mg 30tab 1 po qd s min before , Jose Gurrola M.D., 09/17 [facility] Pradaxa 07/27 Hx Capsules 150mg 60cap 1 by mouth s twice a , Jose Gurrola M.D., 07/28 [facility] Losartan Potassium 11/11 Hx Tablets 50mg 14tab 1 po qd 401.1 Hunt, s ERNESTINE Ribera, APPLIED PSYCHOLOGY TEACHER Metoprolol 10/29 Hx Tablets 25mg 60tab 1 po bid 401.1 Hunt, Tartrate s Virginiaelizabeth Dominguez 03/17 , MSN, /2012 APPLIED PSYCHOLOGY TEACHER 794.31 Lisinopril 10/29/2010 - Hx Tablets 10mg 30tabs 1 po qd 401.1 Hunt, [place] 11/11/2010 ERNESTINE Dominguez, APPLIED PSYCHOLOGY TEACHER Albuterol Hx (2.5mg Malakar, Sulfate /3ML) MD Virgil 0.083% Multivitamins Hx Tablets 1 po qd [place] Hunt, ERNESTINE, APPLIED PSYCHOLOGY TEACHER Proventil HFA - Hx Aerosol 108(90 2 puffs p2h Hunt, [place] 11/21/2015 Base) prn Angelica, mcg/ac MSN, APPLIED PSYCHOLOGY TEACHER Lortab 7.5 Hx Tablets 7.5-50 1 tab q6h Hunt, [place] 0mg prn ERNESTINE Dominguez, APPLIED PSYCHOLOGY TEACHER Glimepiride Hx Tablets 4mg 2 po qam Unknown Zocor Hx Tablets 20mg 1 po qpm Unknown Lopressor Hx Tablets 50mg 60tabs po bid [place] Hunt MSN, APPLIED PSYCHOLOGY TEACHER Duoneb Hx Solution 0.5-2. qid Hunt, [place] 5(3)mg Angelica, /3ML MSN, APPLIED PSYCHOLOGY TEACHER Potassium Hx Solution 40Meq/ tid Hunt, [place] Chloride 100ML ERNESTINE Dominguez, APPLIED PSYCHOLOGY TEACHER Furosemide Hx Tablets 80mg 60tabs 4 tabs qam, Hunt, [place] 3 tabs qpm ERNESTINE Dominguez, APPLIED PSYCHOLOGY TEACHER Meclizine HCL Hx Tablets 12.5mg 1-2 tabs po Unknown q4h prn dizziness Januvia Hx Tablets 50mg 1 po bid [place] Hunt MSN, APPLIED PSYCHOLOGY TEACHER Colace Hx Capsules 100mg 1 po bid [place] Hunt MSN, APPLIED PSYCHOLOGY TEACHER Medrol Hx Tablets 8mg po qd [place] Hunt MSN, APPLIED PSYCHOLOGY TEACHER Methotrexate Hx Tablets 2.5mg po qweek [place] Hunt MSN, APPLIED PSYCHOLOGY TEACHER Ludivina Hx Tablets 60mg 30tabs 1 po qd [place] Hunt MSN, APPLIED PSYCHOLOGY TEACHER Prozac Hx Capsules 20mg 1 po qd [place] Hunt, MSN, APPLIED PSYCHOLOGY TEACHER Provigil Hx Tablets 200mg po qd [place] Hunt, MSN, APPLIED PSYCHOLOGY TEACHER Nexium Hx Capsules DR 40mg 60caps po bid [place] Hunt, MSN, APPLIED PSYCHOLOGY TEACHER Metformin HCL Hx Tablets 1000mg 1 po bid Unknown Simvastatin Hx Tablets 20mg 30tabs 1 po qpm Unknown Advair Diskus Hx Aerosol 250-50 1 puff bid Unknown mcg/Do se Metoprolol Hx Tablets 50mg 60tabs 1 po bid 401.1 Unknown Tartrate 794.31 Hydrocodone/Acetaminophen Hx Tablets 5-325mg 1 tab po Unknown q6h prn Zolpidem Tartrate - Hx Tablets 10mg 1 po qhs Unknown 11/21/2015 Fexofenadine HCL Hx Tablets 180mg 1 po qhs Unknown Methylprednisolone Hx Tablets 4mg 2 po qam Unknown Prednisone Hx Tablets 20mg po qd Unknown Fluoxetine Hx Capsules 25mg po qd Unknown Aspirin Ec Low Dose - Hx Tablets DR 81mg 1 tab by Unknown 05/25/2013 mouth every day with food Claritin Hx Capsules 10mg prn Unknown Methotrexate Hx Tablets 2.5mg as directed Unknown Lasix - Hx Tablets 80mg 1 po qd 42 Unknown 08/20/2012 8. 0 Furosemide - Hx Tablets 20mg 27 1 tab po qd 42 Hunt, 08/02/2013 0t 8. [place] ab 0 Angelica weathers , MSN, APPLIED PSYCHOLOGY TEACHER Lantus Solostar - Hx Solution 100Unit/M as directed Unknown 11/21/2015 L Aspir-[address] 81mg 60 1 po qd Unknown ta bs Glipizide Hx Tablets 5mg 1 po bid Unknown Januvia - Hx Tablets 100mg 30 1 po qd Unknown 11/21/2015 ta bs Prozac Hx Capsules 20mg 30 1 po qd Unknown ca ps Potassium Chloride CR Hx Tablets ER 20Meq 60 2 tab by Roge ta mouth twice , Jose tolentino a day Ugo Gurrola, FACAleksandra Modafinil Hx Tablets 200mg po qd Unknown Lyrica Hx Capsules 200mg 60 1 by mouth benjamin Cornelius twice a day MD Bety ps sheri merced has been writing it Nyamyc - Hx Powder [id number] 1u apply to Unknown 11/21/2015 t/GM ni perianal ts area bid and prn Ranitidine 150 Maximum - Hx Tablets 150mg 1 po daily Unknown Strength 11/21/2015 Spironolactone - Hx Tablets 50mg 1 po qd Unknown 06/03/2017 Torsemide - Hx Tablets 20mg 1 by mouth I5 Unknown 03/27/2016 daily 0. 32 Ludivina Allergy Childrens - Hx Tablets 30mg 1 po daily Unknown 11/21/2015 Diovan - Hx Tablets 40mg 1 by mouth Unknown 11/21/2015 every day Ferrous Sulfate - Hx Tablets 325(65Fe) 1 by mouth Unknown 11/21/2015 mg every day Fluoxetine HCL - Hx Capsules 20mg 2 po daily Unknown 11/21/2015 Folic Acid - Hx Tablets 1mg 1 by mouth Unknown 11/21/2015 every day Magnesium Oxide Hx Tablets 400(240Mg take one Unknown ) mg tablet daily Simvastatin - Hx Tablets 40mg 1 by mouth Unknown 11/21/2015 every day Omeprazole - Hx Capsules 20mg 90 2 po bid Unknown 12/21/2015 DR benjamin beckwith Symbicort - Hx Aerosol 160-4.5mc 2 puff Unknown 11/21/2015 g/Act twice a day Colace Hx Capsules 100mg 2 by mouth Unknown every night Fexofenadine HCL - Hx Tablets 180mg 1 by mouth Unknown 02/27/2017 every day Bengay Hx Patches 1.4% Unknown Ipratropium - Hx Solution 0.5-2.5(3 54 one vial in Clune, [place]/Albuterol Sulfate 04/16/2018 )mg/3ML 0m nebulizer Jenniferl l twice daily eigh, APPLIED PSYCHOLOGY TEACHER Oxycontin Hx Tab ER 12H 5mg po prn Unknown Abuse-Det Fluoxetine HCL Hx Capsules 20mg 1 by mouth Unknown daily but taking a/d as tapering dosing Oxycodone HCL Hx Tablets 10mg 1 every 6 h Unknown by mouth as needed pain Aldactone Hx Tablets 50mg 1 by mouth Unknown every day Biotene Dry Mouth Hx Liquid swish and Unknown spit out four times a day as needed dry mouth Hydrogel - Hx Gel as directed Unknown 04/01/2017 Potassium Chloride ER Hx Capsules 10Meq 1 by mouth Unknown ER every day Miralax - Hx Packet 3350NF 17g by Unknown 02/27/2017 mouth twice a day as needed constipatio n. Vitamin C Hx Chewtabs 500mg 1 po qd Unknown Furosemide Hx Tablets 20mg 1 by mouth Unknown every day Cephalexin - Hx Capsules 500mg Ochoa, 04/16/2018 STEPHANIE Samson Medications Administered in Office Medication Date Status Form Strength Qnty SIG Indications Ordering Provider Depomedrol 80 Administered Injection Cunha, mg 018 MD Dejah Depomedrol 80 Administered Injection [place]ha, mg 018 MD Dejah Depomedrol 80 Administered Injection Lloyd, mg 018 JO-ANN Gracia Vital Signs Date Vital Result Comment 05/27/2018 BP Systolic Sitting Left Arm 120 mmHg BP Diastolic Sitting Left Arm 80 mmHg Heart Rate 60 /min Respiratory Rate 18 /min O2 % BldC Oximetry 88 % 04/21/2018 BP Systolic 111 mmHg BP Diastolic 64 mmHg Body Temperature 97.8 F Heart Rate 112 /min O2 % BldC Oximetry 90 % Pain Level 9 04/16/2018 BP Systolic 125 mmHg left wrist BP Diastolic 66 mmHg left wrist Body Temperature 97.2 F Heart Rate 64 /min Respiratory Rate 20 /min O2 % BldC Oximetry 97 % 01/07/2018 BP Systolic Sitting Right Arm 114 mmHg BP Diastolic Sitting Right Arm 68 mmHg Heart Rate 60 /min Respiratory Rate 18 /min 12/30/2017 BP Systolic 145 mmHg BP Diastolic 72 mmHg Body Temperature 98.1 F 12/11/2017 BP Systolic 128 mmHg BP Diastolic 80 mmHg BP Systolic Sitting Right Arm 103 mmHg BP Diastolic Sitting Right Arm 58 mmHg BP Systolic Sitting Left Arm 108 mmHg BP Diastolic Sitting Left Arm 58 mmHg Body Temperature 96.8 F Heart Rate 60 /min Respiratory Rate 18 /min O2 % BldC Oximetry 96 % 12/04/2017 BP Systolic Sitting Left Arm 122 mmHg BP Diastolic Sitting Left Arm 70 mmHg Body Temperature 97.8 F Heart Rate 62 /min Respiratory Rate 20 /min O2 % BldC Oximetry 94 % 12/02/2017 BP Systolic Sitting Right Arm 89 mmHg Pt has been running low- [facility] aware BP Diastolic Sitting Right Arm 58 mmHg Pt has been running low-[facility] aware Body Temperature 97.7 F Heart Rate 60 /min Respiratory Rate 16 /min Height 70 inches 5'10" Stanton body weight in kilograms 75 10/01/2017 BP Systolic Sitting Left Arm 87 mmHg BP Diastolic Sitting Left Arm 58 mmHg Heart Rate 59 /min Height 70 inches 5'10" Weight 260.00 lb per pt BMI (Body Mass Index) 37.3 kg/m2 BSA (Body Surface Area) 2.33 m2 Stanton body weight in kilograms 75 09/24/2017 BP Systolic Sitting Left Arm 104 mmHg Repeat 88/55 BP Diastolic Sitting Left Arm 62 mmHg Repeat 88/55 Heart Rate 60 /min Respiratory Rate 16 /min Weight 260.00 lb 09/16/2017 BP Systolic 106 mmHg BP Diastolic 64 mmHg Body Temperature 97.8 F Heart Rate 57 /min Weight 260.00 lb O2 % BldC Oximetry 92 % 09/09/2017 BP Systolic Sitting Left Arm 98 mmHg BP Diastolic Sitting Left Arm 62 mmHg Body Temperature 97.2 F Heart Rate 60 /min 08/05/2017 BP Systolic Sitting Left Arm 110 mmHg BP Diastolic Sitting Left Arm 70 mmHg Body Temperature 97.6 F Heart Rate 60 /min 07/15/2017 BP Systolic Sitting Right Arm 118 mmHg BP Diastolic Sitting Right Arm 58 mmHg Heart Rate 59 /min Height 70 inches 5'10" per patient Weight 300.00 lb per patient BMI (Body Mass Index) 43.0 kg/m2 BSA (Body Surface Area) 2.48 m2 Stanton body weight in kilograms 75 O2 % BldC Oximetry 100 % 06/24/2017 BP Systolic Sitting Left Arm 140 mmHg BP Diastolic Sitting Left Arm 75 mmHg Heart Rate 68 /min Respiratory Rate 20 /min Height 70 inches 5'10" per patient Stanton body weight in kilograms 75 06/03/2017 BP Systolic Sitting Left Arm 134 mmHg BP Diastolic Sitting Left Arm 78 mmHg Heart Rate 60 /min Height 70 inches 5'10" per patient Stanton body weight in kilograms 75 05/22/2017 BP Systolic Sitting Right Arm 96 mmHg BP Diastolic Sitting Right Arm 51 mmHg Body Temperature 97.0 F Heart Rate 60 /min Height 70 inches 5'10" per patient Weight 280.00 lb per patient BMI (Body Mass Index) 40.2 kg/m2 BSA (Body Surface Area) 2.41 m2 Stanton body weight in kilograms 75 05/06/2017 BP Systolic 122 mmHg BP Diastolic 68 mmHg 04/01/2017 BP Systolic 114 mmHg BP Diastolic 66 mmHg Heart Rate 60 /min Weight 290.00 lb 7 Weeks Ago 03/27/2017 BP Systolic 92 mmHg BP Diastolic 60 mmHg Body Temperature 98.4 F Heart Rate 76 /min O2 % BldC Oximetry 85 % 03/19/2017 BP Systolic Sitting Left Arm 124 mmHg BP Diastolic Sitting Left Arm 76 mmHg Heart Rate 75 /min Respiratory Rate 16 /min Height 70 inches 5'10" Stanton body weight in kilograms 75 02/27/2017 BP Systolic 112 mmHg BP Diastolic 59 mmHg Heart Rate 60 /min Height 70 inches 5'10" Stanton body weight in kilograms 75 02/16/2017 BP Systolic 128 mmHg BP Diastolic 74 mmHg Height 70 inches 5'10" Weight 290.00 lb per patient BMI (Body Mass Index) 41.6 kg/m2 BSA (Body Surface Area) 2.44 m2 Stanton body weight in kilograms 75 02/06/2017 BP Systolic Sitting Left Arm 128 mmHg BP Diastolic Sitting Left Arm 78 mmHg Heart Rate 60 /min Respiratory Rate 16 /min 12/08/2016 BP Systolic Sitting Left Arm 122 mmHg BP Diastolic Sitting Left Arm 72 mmHg Heart Rate 60 /min Respiratory Rate 16 /min 11/17/2016 BP Systolic Sitting Left Arm 100 mmHg BP Diastolic Sitting Left Arm 62 mmHg Heart Rate 60 /min Respiratory Rate 18 /min 09/08/2016 BP Systolic Sitting Left Arm 132 mmHg BP Diastolic Sitting Left Arm 78 mmHg Heart Rate 60 /min Respiratory Rate 18 /min 05/12/2016 BP Systolic Sitting Right Arm 118 mmHg BP Diastolic Sitting Right Arm 70 mmHg Heart Rate 62 /min Respiratory Rate 18 /min Height 70 inches 5'10" Weight 260.00 lb BMI (Body Mass Index) 37.3 kg/m2 BSA (Body Surface Area) 2.33 m2 04/24/2016 BP Systolic Sitting Left Arm 140 mmHg BP Diastolic Sitting Left Arm 78 mmHg Heart Rate 56 /min Respiratory Rate 16 /min Height 70 inches 5'10" Weight 260.00 lb As per pt,unable to stand BMI (Body Mass Index) 37.3 kg/m2 BSA (Body Surface Area) 2.33 m2 04/07/2016 BP Systolic Sitting Left Arm 122 mmHg BP Diastolic Sitting Left Arm 60 mmHg Heart Rate 72 /min Height 70 inches 5'10" 03/31/2016 BP Systolic Sitting Left Arm 114 mmHg BP Diastolic Sitting Left Arm 62 mmHg Heart Rate 68 /min Respiratory Rate 18 /min Height 70 inches 5'10" Weight 270.00 lb BMI (Body Mass Index) 38.7 kg/m2 BSA (Body Surface Area) 2.37 m2 03/27/2016 BP Systolic Sitting Right Arm 108 mmHg BP Diastolic Sitting Right Arm 62 mmHg Heart Rate 60 /min Respiratory Rate 16 /min Height 70 inches 5'10" Weight 270.00 lb per pt BMI (Body Mass Index) 38.7 kg/m2 BSA (Body Surface Area) 2.37 m2 12/21/2015 BP Systolic 114 mmHg BP Diastolic 68 mmHg Heart Rate 55 /min Respiratory Rate 18 /min Height 70 inches 5'10" Weight 266.00 lb BMI (Body Mass Index) 38.2 kg/m2 BSA (Body Surface Area) 2.36 m2 O2 % BldC Oximetry 95 % Ra 11/21/2015 BP Systolic Sitting Right Arm 106 mmHg BP Diastolic Sitting Right Arm 70 mmHg Heart Rate 75 /min Height 70 inches 5'10" Weight 292.00 lb BMI (Body Mass Index) 41.9 kg/m2 BSA (Body Surface Area) 2.45 m2 04/03/2015 BP Systolic Sitting Left Arm 96 mmHg BP Diastolic Sitting Left Arm 50 mmHg Heart Rate 58 /min Respiratory Rate 18 /min Height 70 inches 5'10" 04/24/2014 Height 70 inches 5'10" Weight 310.00 lb BMI (Body Mass Index) 44.5 kg/m2 BSA (Body Surface Area) 2.51 m2 01/10/2014 BP Systolic Sitting Right Arm 120 mmHg BP Diastolic Sitting Right Arm 68 mmHg Heart Rate 60 /min Respiratory Rate 18 /min Height 60 inches 5'0" Weight 310.00 lb Est. per pt BMI (Body Mass Index) 60.5 kg/m2 BSA (Body Surface Area) 2.25 m2 11/10/2013 BP Systolic Sitting Left Arm 102 mmHg BP Diastolic Sitting Left Arm 64 mmHg Heart Rate 64 /min Respiratory Rate 20 /min Height 60 inches 5'0" Weight 335.00 lb per patient BMI (Body Mass Index) 65.4 kg/m2 BSA (Body Surface Area) 2.32 m2 08/02/2013 BP Systolic Sitting Left Arm 144 mmHg BP Diastolic Sitting Left Arm 70 mmHg Heart Rate 68 /min Respiratory Rate 18 /min Height 60 inches 5'0" 03/14/2013 BP Systolic Sitting Right Arm 122 mmHg BP Diastolic Sitting Right Arm 64 mmHg Heart Rate 66 /min Respiratory Rate 18 /min Height 60 inches 5'0" 09/02/2012 BP Systolic Sitting Left Arm 122 mmHg BP Diastolic Sitting Left Arm 70 mmHg Heart Rate 70 /min Respiratory Rate 20 /min Height 60 inches 5'0" Weight 390.00 lb per patient BMI (Body Mass Index) 76.2 kg/m2 08/20/2012 BP Systolic Sitting Right Arm 104 mmHg BP Diastolic Sitting Right Arm 70 mmHg Heart Rate 56 /min Irregular Respiratory Rate 20 /min Height 70 inches 5'10" Weight 400.00 lb estimated BMI (Body Mass Index) 57.4 kg/m2 07/27/2012 BP Systolic Sitting Right Arm 116 mmHg BP Diastolic Sitting Right Arm 80 mmHg Heart Rate 60 /min Regular Respiratory Rate 20 /min Height 70 inches 5'10" Weight 395.00 lb BMI (Body Mass Index) 56.7 kg/m2 10/29/2010 BP Systolic Sitting Right Arm 130 mmHg BP Diastolic Sitting Right Arm 90 mmHg Heart Rate 53 /min regular Respiratory Rate 20 /min Height 70 inches 5'10" Weight 380.00 lb BMI (Body Mass Index) 54.5 kg/m2 11/02/2009 Heart Rate 82 /min Respiratory Rate 20 /min Weight 360.00 lb 07/20/2008 Height 70 inches 5'10" Weight 350.00 lb estimated-in wheelchair Results Test Date Test Result H/L Range Note CBC W/Automated Diff 05/27/2018 White Blood Count 5.0 K/uL 3.4-10.5 1 Red Blood Count 3.93 M/uL Low 4.20-5.80 1 Hemoglobin 11.8 gm/dL Low 12.8-17.0 1 Hematocrit 38.0 % 38.0-48.0 1 Mean Cell Volume 96.7 fl High 80.0-96.0 1 Mean Corpuscular HGB 30.0 pg 27.0-33.0 1 Mean Corpuscular HGB Conc 31.1 g/dL Low 31.7-36.0 1 Platelet Count 141 K/uL Low 155-360 1 Red Cell Distri Width SD 51.4 fl High 36-51 1 Red Cell Distri Width %CV 15.0 % 11.6-15.8 1 Mean Platelet Volume 10.8 fL High 6.6-10.6 1 Neut% 59.6 % 33.0-73.0 1 Lymph % 18.5 % Low 20.0-42.0 1 Moffat % 15.5 % High 0.0-10.0 1 Eo% 5.4 % 0.0-6.6 1 Bas% 1.0 % 0.0-1.1 1 Neut# 3.00 K/uL 1.8-7.0 1 Lymph # 0.93 K/uL Low 1.0-4.0 1 Moffat # 0.78 K/uL 0.0-0.8 1 Eos # 0.27 K/uL 0.0-0.5 1 Baso # 0.05 K/uL 0.0-0.1 1 Comprehensive Metabolic Panel 05/27/2018 Glucose 132 mg/dL High 74-106 1 BUN 22 mg/dL High 7-18 1 Creatinine 1.3 mg/dL 0.6-1.3 1 Glom Filtration Rate, Estimate 56 mL/min >60 1 If >60 mL/min >60 1, 2 BUN/Creat 16.9 ratio 1 Sodium 144 mmol/L 136-145 1 Potassium 4.6 mmol/L 3.5-5.1 1 Chloride 106 mmol/L 98-107 1 Carbon Dioxide 30 mmol/L 21-32 1 Anion Gap 8 mEq/L 8-16 1 Calcium 8.5 mg/dL 8.5-10.1 1 Total Protein 7.4 g/dL 6.4-8.2 1 Albumin 3.5 g/dL 3.4-5.0 1 Globulin 3.9 g/dL 1.9-4.3 1 Alb/Glob 0.9 ratio 1 Bilirubin,Total 0.5 mg/dL 0.2-1.0 1 Sgot/Ast 16 U/L 15-37 1 SGPT/Alt 17 U/L 12-78 1 Alkaline Phosphatase 111 U/L 45-117 1 Reflex add FT3? Y 1 Reflex add FT4? Y 1 Magnesium 05/27/2018 Magnesium 2.2 mg/dL 1.8-2.4 1 Reflex add FT3? Y 1 Reflex add FT4? Y 1 TSH Reflex FT4 And/Or FT3 05/27/2018 Thyroid Stim Hormone 0.97 uIU/mL 0.30-4.20 1 Reflex add FT3? Y 1 Reflex add FT4? Y 1 Laboratory test finding 02/09/2018 Point of Care Glucose 148 mg/dL High 70 -100 3 Basic Metabolic Panel 12/11/2017 Glucose 126 mg/dL High 74-106 4 BUN 32 mg/dL High 7-18 4 Creatinine 1.5 mg/dL High 0.6-1.3 4 Glom Filtration Rate, Estimate 48 mL/min >60 4 If 58 mL/min >60 4, 5 BUN/Creat 21.3 ratio 4 Sodium 134 mmol/L Low 136-145 4 Potassium 4.6 mmol/L 3.5-5.1 4 Chloride 101 mmol/L 98-107 4 Carbon Dioxide 29 mmol/L 21-32 4 Anion Gap 4 mEq/L Low 8-16 4 Calcium 8.9 mg/dL 8.5-10.1 4 Basic Metabolic Panel 10/20/2017 Glucose 102 mg/dL 74-106 4 BUN 26 mg/dL High 7-18 4 Creatinine 1.1 mg/dL 0.6-1.3 4 Glom Filtration Rate, Estimate >60 mL/min >60 4 If >60 mL/min >60 4, 6 BUN/Creat 23.6 ratio 4 Sodium 139 mmol/L 136-145 4 Potassium 4.7 mmol/L 3.5-5.1 4 Chloride 104 mmol/L 98-107 4 Carbon Dioxide 30 mmol/L 21-32 4 Anion Gap 5 mEq/L Low 8-16 4 Calcium 9.3 mg/dL 8.5-10.1 4 LDL Cholesterol Profile 09/16/2017 Cholesterol 108 mg/dL <200 7, 8 Triglycerides 111 mg/dL <150 7, 9 HDL Cholesterol 45 mg/dL >40 7, 10 LDL-Cholesterol 41 mg/dL < 100 7, 11 Reflex add FT3? N 7 Reflex add FT4? Y 7 Glycohemoglobin A1c 09/16/2017 Glycohemoglobin (A1c) 6.2 % 4.2-6.3 7, 12 eAG 131 mg/dL 7 Laboratory test 09/16/2017 Vitamin D,25-Hydroxy 77.2 ng/mL 30.0-100.0 7 , 13 finding Homocyst(E)Ine, P/S 09/16/2017 Homocyst(e)ine, P/S 20.6 umol/L High 0.0- 15.0 7, 14 TSH Reflex FT4 09/16/2017 Thyroid Stim Hormone 1.65 uIU/mL 0.30-4.20 7 And/Or FT3 Reflex add FT3? N 7 Reflex add FT4? Y 7 Comprehensive Metabolic Panel 09/16/2017 Glucose 122 mg/dL High 74-106 7 BUN 44 mg/dL High 7-18 7 Creatinine 1.9 mg/dL High 0.6-1.3 7 Glom Filtration Rate, Estimate 37 mL/min >60 7 If 44 mL/min >60 7, 15 BUN/Creat 23.1 ratio 7 Sodium 135 mmol/L Low 136-145 7 Potassium 5.1 mmol/L 3.5-5.1 7 Chloride 103 mmol/L 98-107 7 Carbon Dioxide 27 mmol/L 21-32 7 Anion Gap 5 mEq/L Low 8-16 7 Calcium 8.8 mg/dL 8.5-10.1 7 Total Protein 8.2 g/dL 6.4-8.2 7 Albumin 3.6 g/dL 3.4-5.0 7 Globulin 4.6 g/dL High 1.9-4.3 7 Alb/Glob 0.8 ratio 7 Bilirubin,Total 0.5 mg/dL 0.2-1.0 7 Sgot/Ast 27 U/L 15-37 7 SGPT/Alt 24 U/L 12-78 7 Alkaline Phosphatase 78 U/L 45-117 7 Reflex add FT3? N 7 Reflex add FT4? Y 7 Basic Metabolic Panel 07/03/2017 Glucose 144 mg/dL High 74-106 16 BUN 43 mg/dL High 7-18 16 Creatinine 1.8 mg/dL High 0.6-1.3 16 Glom Filtration Rate, Estimate 39 mL/min >60 16 If 47 mL/min >60 16, 17 BUN/Creat 23.8 ratio 16 Sodium 136 mmol/L 136-145 16 Potassium 4.6 mmol/L 3.5-5.1 16 Chloride 99 mmol/L 98-107 16 Carbon Dioxide 30 mmol/L 21-32 16 Anion Gap 7 mEq/L Low 8-16 16 Calcium 9.0 mg/dL 8.5-10.1 16 Glycohemoglobin A1c 07/03/2017 Glycohemoglobin (A1c) 6.0 % 4.2-6.3 16, 18 eAG 126 mg/dL 16 Glycohemoglobin A1c 06/03/2017 Glycohemoglobin (A1c) 6.3 % 4.2-6.3 19, 20 eAG 134 mg/dL 19 Basic Metabolic Panel 06/03/2017 Glucose 140 mg/dL High 74-106 19 BUN 22 mg/dL High 7- 19 Creatinine 1.4 mg/dL High 0.6-1.3 19 Glom Filtration Rate, Estimate 52 mL/min >60 19 If >60 mL/min >60 19, 21 BUN/Creat 15.7 ratio 19 Sodium 138 mmol/L 136-145 19 Potassium 4.8 mmol/L 3.5-5.1 19 Chloride 105 mmol/L 98-107 19 Carbon Dioxide 27 mmol/L 21-32 19 Anion Gap 6 mEq/L Low 8-16 19 Calcium 8.5 mg/dL 8.5-10.1 19 Basic Metabolic Panel 03/19/2017 Glucose 148 mg/dL High 74-106 22 BUN 33 mg/dL High 7-18 22 Creatinine 1.2 mg/dL 0.6-1.3 22 Glom Filtration Rate, Estimate >60 mL/min >60 22 If >60 mL/min >60 22, 23 BUN/Creat 27.5 ratio 22 Sodium 139 mmol/L 136-145 22 Potassium 4.9 mmol/L 3.5-5.1 22 Chloride 105 mmol/L 98-107 22 Carbon Dioxide 29 mmol/L 21-32 22 Anion Gap 5 mEq/L Low 8-16 22 Calcium 9.2 mg/dL 8.5-10.1 22 Basic Metabolic Panel 02/02/2017 Glucose 189 mg/dL High 74-106 22 BUN 59 mg/dL High 7-18 22 Creatinine 1.9 mg/dL High 0.6-1.3 22 Glom Filtration Rate, Estimate 37 mL/min >60 22 If 44 mL/min >60 22, 24 BUN/Creat 31.0 ratio 22 Sodium 134 mmol/L Low 136-145 22 Potassium 4.2 mmol/L 3.5-5.1 22 Chloride 95 mmol/L Low 98-107 22 Carbon Dioxide 36 mmol/L High 21-32 22 Anion Gap 3 mEq/L Low 8-16 22 Calcium 9.6 mg/dL 8.5-10.1 22 Reflex add FT3? Y 22 Reflex add FT4? Y 22 Magnesium 02/02/2017 Magnesium 2.9 mg/dL High 1.8-2.4 22 Reflex add FT3? Y 22 Reflex add FT4? Y 22 CBS W/Automated Diff 02/02/2017 White Blood Count 8.8 K/uL 3.4-10.5 22 Red Blood Count 4.01 M/uL Low 4.20-5.80 22 Hemoglobin 12.5 gm/dL Low 12.8-17.0 22 Hematocrit 38.1 % 38.0-48.0 22 Mean Cell Volume 95.0 fl 80.0-96.0 22 Mean Corpuscular HGB 31.2 pg 27.0-33.0 22 Mean Corpuscular HGB Conc 32.8 g/dL 31.7-36.0 22 Platelet Count 174 K/uL 150-400 22 Red Cell Distri Width SD 51.7 fl High 36-51 22 Red Cell Distri Width %CV 15.2 % 11.6-15.8 22 Mean Platelet Volume 10.3 fL 6.6-10.6 22 Neut% 70.9 % 33.0-73.0 22 Lymph % 15.2 % Low 20.0-42.0 22 Moffat % 9.8 % 0.0-10.0 22 Eo% 3.8 % 0.0-6.6 22 Bas% 0.3 % 0.0-1.1 22 Neut# 6.23 K/uL 1.8-7.0 22 Lymph # 1.34 K/uL 1.0-4.0 22 Moffat # 0.86 K/uL High 0.0-0.8 22 Eos # 0.33 K/uL 0.0-0.5 22 Baso # 0.03 K/uL 0.0-0.1 22 TSH Reflex FT4 And/Or FT3 02/02/2017 Thyroid Stim Hormone 1.92 uIU/mL 0.30-4.20 22 Reflex add FT3? Y 22 Reflex add FT4? Y 22 Xray 12/31/2016 CT Abdomen, W/O unchanged Contrast mesenteric Glucose BldC 11/03/2016 Glucose BldC 141 High 70-110 Glucomtr-mCnc Glucomtr-mCnc Anion Gap 11/03/2016 Anion Gap 12 8-16 SerPl-sCnc SerPl-sCnc BUN SerPl-mCnc 11/03/2016 BUN SerPl-mCnc 23 High 7-18 BUN/Creat SerPl 11/03/2016 BUN/Creat SerPl 17.6 Co2 SerPl-sCnc 11/03/2016 Co2 SerPl-sCnc 27 21-32 Calcium SerPl-mCnc 11/03/2016 Calcium SerPl-mCnc 9.3 8.5-10.1 Chloride SerPl-sCnc 11/03/2016 Chloride SerPl-sCnc 98 98-107 Creat SerPl-mCnc 11/03/2016 Creat SerPl-mCnc 1.3 0.6-1.3 GFR/Bsa pred.non 11/03/2016 GFR/Bsa pred.non 57 >60 black SerPl black SerPl MDRD-ArVRat MDRD-ArVRat Glucose 11/03/2016 Glucose 133 High 74-106 [mass/volume] in [mass/volume] in serum or plasma serum or plasma Hct VFr Bld Auto 11/03/2016 Hct VFr Bld Auto 41.3 38.0-48.0 Hgb Bld-mCnc 11/03/2016 Hgb Bld-mCnc 13.5 12.8-17.0 MCH RBC Qn Auto 11/03/2016 MCH RBC Qn Auto 30.2 27.0-33.0 MCHC RBC Auto-mCnc 11/03/2016 MCHC RBC Auto-mCnc 32.7 31.7-36.0 MCV RBC Auto 11/03/2016 MCV RBC Auto 92.4 80.0-96.0 Magnesium 11/03/2016 Magnesium 1.8 1.8-2.4 SerPl-mCnc SerPl-mCnc PMV Bld Auto 11/03/2016 PMV Bld Auto 10.5 6.6-10.6 Platelet # Bld Auto 11/03/2016 Platelet # Bld Auto 294 150-400 Potassium 11/03/2016 Potassium 3.6 3.5-5.1 SerPl-sCnc SerPl-sCnc RBC # Bld Auto 11/03/2016 RBC # Bld Auto 4.47 4.20-5.80 RDW RBC Auto-Rto 11/03/2016 RDW RBC Auto-Rto 13.4 11.6-15.8 Sodium SerPl-sCnc 11/03/2016 Sodium SerPl-sCnc 137 136-145 WBC # Bld Auto 11/03/2016 WBC # Bld Auto 9.8 3.4-10.5 CBC 11/01/2016 White Blood Count 8.1 K/uL 3.4-10.5 25 Red Blood Count 3.93 M/uL Low 4.20-5.80 25 Hemoglobin 11.8 gm/dL Low 12.8-17.0 25 Hematocrit 36.3 % Low 38.0-48.0 25 Mean Cell Volume 92.4 fl 80.0-96.0 25 Mean Corpuscular HGB 30.0 pg 27.0-33.0 25 Mean Corpuscular HGB Conc 32.5 g/dL 31.7-36.0 25 Platelet Count 228 K/uL 150-400 25 Red Cell Distri Width %CV 12.9 % 11.6-15.8 25 Mean Platelet Volume 10.5 fL 6.6-10.6 25 CBS W/Automated Diff 11/01/2016 Red Cell Distri Width SD 42.6 fl 36-51 25 Neut% 61.9 % 33.0-73.0 25 Lymph % 21.6 % 20.0-42.0 25 Moffat % 11.4 % High 0.0-10.0 25 Eo% 4.7 % 0.0-6.6 25 Bas% 0.4 % 0.0-1.1 25 Neut# 5.04 K/uL 1.8-7.0 25 Lymph # 1.76 K/uL 1.0-4.0 25 Moffat # 0.93 K/uL High 0.0-0.8 25 Eos # 0.38 K/uL 0.0-0.5 25 Baso # 0.03 K/uL 0.0-0.1 25 RDW RBC Auto 11/01/2016 RDW RBC Auto 42.6 36-51 Neutrophils/leuk NFr 11/01/2016 Neutrophils/leuk NFr 61.9 33.0-73.0 Bld Auto Bld Auto Neutrophils # Bld Auto 11/01/2016 Neutrophils # Bld Auto 5.04 1.8-7.0 Monocytes/leuk NFr Bld 11/01/2016 Monocytes/leuk NFr Bld 11.4 High 0.0- 10.0 Auto Auto Monocytes # Bld Auto 11/01/2016 Monocytes # Bld Auto 0.93 High 0.0-0.8 Lymphocytes/leuk NFr 11/01/2016 Lymphocytes/leuk NFr 21.6 20.0-42.0 Bld Auto Bld Auto Lymphocytes # Bld Auto 11/01/2016 Lymphocytes # Bld Auto 1.76 1.0-4.0 Eosinophil/leuk NFr Bld 11/01/2016 Eosinophil/leuk NFr Bld 4.7 0.0-6.6 Auto Auto Eosinophil # Bld Auto 11/01/2016 Eosinophil # Bld Auto 0.38 0.0-0.5 Basophils/leuk NFr Bld 11/01/2016 Basophils/leuk NFr Bld 0.4 0.0-1.1 Auto Auto Basophils # Bld Auto 11/01/2016 Basophils # Bld Auto 0.03 0.0-0.1 Laboratory test finding 11/01/2016 Magnesium 2.2 mg/dL 1.8-2.4 25 C-Reactive Protein,Quant 79.5 mg/L High <3.0 25 Basic Metabolic Panel 11/01/2016 Glucose 156 mg/dL High 74-106 25 BUN 22 mg/dL High 7-18 25 Creatinine 1.0 mg/dL 0.6-1.3 25 Glom Filtration Rate, Estimate >60 mL/min >60 25 If >60 mL/min >60 25, 26 BUN/Creat 22.0 ratio 25 Sodium 135 mmol/L Low 136-145 25 Potassium 3.3 mmol/L Low 3.5-5.1 25 Chloride 99 mmol/L 98-107 25 Carbon Dioxide 28 mmol/L 21-32 25 Anion Gap 8 mEq/L 8-16 25 Calcium 9.0 mg/dL 8.5-10.1 25 Hgb A1c MFr Bld 10/30/2016 Hgb A1c MFr Bld 8.5 High 4.2-6.3 Blood glucose mean 10/30/2016 Blood glucose mean 197 value measurement value measurement estimated fro estimated from glycated hemoglobin (mass/volume) Serum or plasma 10/30/2016 Serum or plasma 10.5 Low 15.0-20.0 trough vancomycin trough vancomycin level at trough level at trough (mass/volume) Unloinc 10/29/2016 Unloinc . Prot SerPl-mCnc 10/29/2016 Prot SerPl-mCnc 8.2 6.4-8.2 Globulin Ser 10/29/2016 Globulin Ser 5.3 High 1.9-4.3 Calc-mCnc Calc-mCnc Erythrocyte 10/29/2016 Erythrocyte 58 High 0-20 sedimentation rate sedimentation rate by 15 minute readin by 15 minute reading Bilirub SerPl-mCnc 10/29/2016 Bilirub SerPl-mCnc 1.1 High 0.2-1.0 Albumin/Glob SerPl 10/29/2016 Albumin/Glob SerPl 0.5 Albumin SerPl-mCnc 10/29/2016 Albumin SerPl-mCnc 2.9 Low 3.4-5.0 Acetone [presence] 10/29/2016 Acetone [presence] Moderate High Negative in serum or plasma in serum or plasma Venous blood oxygen 10/29/2016 Venous blood oxygen 54.2 Low 60-80 saturation (mass saturation (mass fraction) fraction) Venous blood 10/29/2016 Venous blood 27.2 bicarbonate bicarbonate measurement measurement (moles/volume (moles/volume) Venous blood base 10/29/2016 Venous blood base 1.9 excess by excess by calculation calculation pH Ur Strip.auto 10/29/2016 pH Ur Strip.auto 5.5 Low 6.5-7.5 Urobilinogen Ur 10/29/2016 Urobilinogen Ur 0.2 0.2-1.0 Strip-aCnc Strip-aCnc Urine hemoglobin 10/29/2016 Urine hemoglobin Moderate High Negative detection by detection by automated test strip automated test strip Urine glucose 10/29/2016 Urine glucose Negative Negative measurement by measurement by automated test strip automated test strip (mass/volume) Urine appearance 10/29/2016 Urine appearance Clear Clear determination determination Specific gravity of 10/29/2016 Specific gravity of 1.025 1.010-1.030 urine by automated urine by automated test strip test strip Prot Ur 10/29/2016 Prot Ur 30 High Negative Strip.auto-mCnc Strip.auto-mCnc Nitrite Ur Ql 10/29/2016 Nitrite Ur Ql Negative Negative Strip.auto Strip.auto Leukocytes [#/area] 10/29/2016 Leukocytes [#/area] None Seen 0-7 in urine sediment by in urine sediment by microscop microscopy high power field Leukocyte esterase 10/29/2016 Leukocyte esterase Negative Negative Ur Ql Strip.auto Ur Ql Strip.auto Ketones Ur 10/29/2016 Ketones Ur 15 High Negative Strip.auto-mCnc Strip.auto-mCnc Epithelial cells 10/29/2016 Epithelial cells Very Few None Seen [presence] in urine [presence] in urine sediment by l sediment by light microscopy Color Ur 10/29/2016 Color Ur Yellow Yellow Bilirub Ur Ql 10/29/2016 Bilirub Ur Ql Negative Negative Strip.auto Strip.auto Troponin I 10/29/2016 Troponin I 0.057 SerPl-mCnc SerPl-mCnc Venous blood pH 10/29/2016 Venous blood pH 7.40 7.25-7.55 measurement with measurement with patient temperatu patient temperature correction Venous blood partial 10/29/2016 Venous blood partial 45 45-50 pressure of carbon pressure of carbon dioxide me dioxide measurement adjusted to patients actual temperature Venous blood partial 10/29/2016 Venous blood partial 29 Low 40-60 pressure of oxygen pressure of oxygen measuremen measurement with patient temperature corrrection Anaerobic blood 10/29/2016 Anaerobic blood No Growth: culture culture Final Report Bacteria Bld Aerobe 10/29/2016 Bacteria Bld Aerobe No Growth: Cult Cult Final Report Lactate 10/29/2016 Lactate 1.5 0.4-1.9 [moles/volume] in [moles/volume] in serum or plasma serum or plasma Alp SerPl-cCnc 10/29/2016 Alp SerPl-cCnc 87 45-117 Ast SerPl-cCnc 10/29/2016 Ast SerPl-cCnc 14 Low 15-37 Alt SerPl-cCnc 10/29/2016 Alt SerPl-cCnc 14 12-78 Serum or plasma 09/28/2016 Serum or plasma 1040.0 High <450 natriuretic peptide natriuretic peptide B prohormone N B prohormone N-terminal measurement (mass/volume) Serum or plasma 09/28/2016 Serum or plasma 43 39-308 creatine kinase creatine kinase measurement (enzym measurement (enzymatic activity/volume) Comprehensive 09/08/2016 Glucose 175 mg/dL High 74-106 27 Metabolic Panel BUN 32 mg/dL High 7-18 27 Creatinine 1.1 mg/dL 0.6-1.3 27 Glom Filtration Rate, Estimate >60 mL/min >60 27 If >60 mL/min >60 27, 28 BUN/Creat 29.0 ratio 27 Sodium 138 mmol/L 136-145 27 Potassium 4.6 mmol/L 3.5-5.1 27 Chloride 105 mmol/L 98-107 27 Carbon Dioxide 28 mmol/L 21-32 27 Anion Gap 5 mEq/L Low 8-16 27 Calcium 8.5 mg/dL 8.5-10.1 27 Total Protein 7.1 g/dL 6.4-8.2 27 Albumin 2.9 g/dL Low 3.4-5.0 27 Globulin 4.2 g/dL 1.9-4.3 27 Alb/Glob 0.7 ratio 27 Bilirubin,Total 0.4 mg/dL 0.2-1.0 27 Sgot/Ast 15 U/L 15-37 27 SGPT/Alt 17 U/L 12-78 27 Alkaline Phosphatase 101 U/L 45-117 27 Laboratory test finding 09/08/2016 Magnesium 2.2 mg/dL 1.8-2.4 27 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/2016 CT Abdomen, 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 Contrast Comprehensive Metabolic 04/07/2016 Glucose 304 mg/dL High 74-106 27 Panel BUN 63 mg/dL High 7-18 27 Creatinine 1.4 mg/dL High 0.6-1.3 27 Glom Filtration Rate, Estimate 52 mL/min >60 27 If >60 mL/min >60 27, 29 BUN/Creat 45.0 ratio 27 Sodium 135 mmol/L Low 136-145 27 Potassium 4.1 mmol/L 3.5-5.1 27 Chloride 101 mmol/L 98-107 27 Carbon Dioxide 28 mmol/L 21-32 27 Anion Gap 6 mEq/L Low 8-16 27 Calcium 9.0 mg/dL 8.5-10.1 27 Total Protein 7.9 g/dL 6.4-8.2 27 Albumin 3.1 g/dL Low 3.4-5.0 27 Globulin 4.8 g/dL High 1.9-4.3 27 Alb/Glob 0.6 ratio 27 Bilirubin,Total 0.2 mg/dL 0.2-1.0 27 Sgot/Ast 13 U/L Low 15-37 27, 30 SGPT/Alt 17 U/L 12-78 27 Alkaline Phosphatase 160 U/L High 45-117 27 @[facility] Pat Id: [id number] 27 @[facility] Req #: [id number] 27 Is Patient Fasting? Non-Fasting 27 Comprehensive Metabolic Panel 03/31/2016 Glucose 233 mg/dL High 74-106 BUN 68 mg/dL High 7-18 Creatinine 2.1 mg/dL High 0.6-1.3 Glom Filtration Rate, Estimate 33 mL/min >60 If 39 mL/min >60 31 BUN/Creat 32.3 ratio Sodium 135 mmol/L Low 136-145 Potassium 4.3 mmol/L 3.5-5.1 Chloride 100 mmol/L 98-107 Carbon Dioxide 26 mmol/L 21-32 Anion Gap 9 mEq/L 8-16 Calcium 8.9 mg/dL 8.5-10.1 Total Protein 8.3 g/dL High 6.4-8.2 Albumin 3.2 g/dL Low 3.4-5.0 Globulin 5.1 g/dL High 1.9-4.3 Alb/Glob 0.6 ratio Bilirubin,Total 0.4 mg/dL 0.2-1.0 Sgot/Ast 14 U/L Low 15-37 32 SGPT/Alt 16 U/L 12-78 Alkaline Phosphatase 157 U/L High 45-117 Laboratory test 03/31/2016 TSH Reflex FT4 and/or FT3 1.23 uIU/mL 0.30- 4.20 33 finding Laboratory test 03/04/2016 Alanine Aminotransferase 15 12-78 finding (Alt/SGPT) Albumin 2.9 Low 3.4-5.0 Albumin/Globulin Ratio 0.6 Alkaline Phosphatase 161 High 45-117 Anion Gap 4 Low 8-16 Aspartate Amino Transf (Ast/Sgot) 13 Low 15-37 BUN/Creatinine Ratio 45.0 Blood Urea Nitrogen 54 High 7-18 C-Reactive Protein, Quantitative 14.5 High <3.0 Calcium Level 8.4 Low 8.5-10.1 Carbon Dioxide Level 29 21-32 Chloride Level 100 98-107 Creatinine 1.2 0.6-1.3 Globulin 4.8 High 1.9-4.3 Glucose Screen 204 High 74-106 Hematocrit 38.2 38.0-48.0 Hemoglobin 12.0 Low 12.8-17.0 Mean Corpuscular Hemoglobin 27.4 27.0-33.0 Mean Corpuscular Hemoglobin Concent 31.4 Low 31.7-36.0 Mean Corpuscular Volume 87.2 80.0-96.0 Mean Platelet Volume 10.2 6.6-10.6 Platelet Count 212 150-400 Potassium Level 4.3 3.5-5.1 RDW Coefficient of Variation 19.2 High 11.6-15.8 Red Blood Count 4.38 4.20-5.80 Sodium Level 133 Low 136-145 Total Bilirubin 0.3 0.2-1.0 Total Protein 7.7 6.4-8.2 White Blood Count 5.9 3.4-10.5 Laboratory test finding 03/02/2016 Urine Bacteria Many High None Seen Urine Bilirubin Negative Negative Urine Blood Small High Negative Urine Clarity SL Cloudy Clear Urine Color Yellow Yellow Urine Culture Organism: Proteus Mirabilis Urine Glucose (Ua) Negative Negative Urine Ketones Negative Negative Urine Leukocyte Esterase Moderate High Negative Urine Nitrite Negative Negative Urine Protein 100 High Negative Urine Specific [place] 1.010 1.010-1.030 Urine Triple Phosphate Crystals Many None Seen Urine Urobilinogen 0.2 0.2-1.0 Laboratory test finding 02/24/2016 Bedside Glucose 195 High 70-110 Laboratory test finding 02/20/2016 Anion Gap 5 Low 8-16 BUN/Creatinine Ratio 27.5 Blood Urea Nitrogen 33 High 7-18 Calcium Level 8.4 Low 8.5-10.1 Carbon Dioxide Level 34 High 21-32 Chloride Level 97 Low 98-107 Creatinine 1.2 0.6-1.3 Glucose Screen 156 High 74-106 Hematocrit 37.7 Low 38.0-48.0 Hemoglobin 11.2 Low 12.8-17.0 Magnesium Level 2.3 1.8-2.4 Mean Corpuscular Hemoglobin 26.5 Low 27.0-33.0 Mean Corpuscular Hemoglobin Concent 29.7 Low 31.7-36.0 Mean Corpuscular Volume 89.1 80.0-96.0 Mean Platelet Volume 10.7 High 6.6-10.6 Platelet Count 191 150-400 Potassium Level 3.9 3.5-5.1 RDW Coefficient of Variation 22.1 High 11.6-15.8 Red Blood Count 4.23 4.20-5.80 Sodium Level 136 136-145 White Blood Count 6.6 3.4-10.5 Laboratory test finding 02/19/2016 Aerobic Blood Culture No Growth Anaerobic Blood Culture No Growth Laboratory test finding 02/19/2016 Aot Request Test(s) added 34 Blood Culture 02/19/2016 Blood Culture Aerobic See Note 35 Blood Culture Anaerobic See Note 36 Blood Culture 02/19/2016 Blood Culture Aerobic See Note 37 Blood Culture Anaerobic See Note 38 Laboratory test finding 02/19/2016 Aerobic Blood Culture No Growth Anaerobic Blood Culture No Growth Laboratory test 02/19/2016 Miscellaneous Test Test(s) added finding Comment Laboratory test 02/18/2016 Basophils # (Auto) 0.06 Low 0.1-0.2 finding Basophils (%) (Auto) 0.8 0.1-1.0 C-Reactive Protein, Quantitative 24.2 High <3.0 Eosinophils # (Auto) 0.79 High 0.0-0.5 Eosinophils (%) (Auto) 10.9 High 0.0-5.0 Erythrocyte Sedimentation Rate 60 High 0-20 Lymphocytes # (Auto) 1.49 Low 1.8-7.0 Lymphocytes (%) (Auto) 20.5 17.0-56.0 Manual Slide Review (Hematology) . Monocytes # (Auto) 1.45 High 0.0-0.8 Monocytes (%) (Auto) 19.9 High 0.0-10.0 Neutrophils # (Auto) 3.48 1.8-7.0 Neutrophils (%) (Auto) 47.9 33.0-73.0 Red Cell Distribution Width 71.4 High 36-51 Laboratory test finding 02/15/2016 Pro-B-Type Natriuretic 2423.0 High < 450 Peptide Laboratory test finding 02/14/2016 Alanine Aminotransferase 13 12-78 (Alt/SGPT) Albumin 3.0 Low 3.4-5.0 Albumin/Globulin Ratio 0.6 Alkaline Phosphatase 152 High 45-117 Aspartate Amino Transf (Ast/Sgot) 17 15-37 Globulin 5.0 High 1.9-4.3 Lactic Acid Level 1.0 0.4-1.9 Total Bilirubin 0.2 0.2-1.0 Total Creatine Kinase 60 39-308 Total Protein 8.0 6.4-8.2 Troponin I 0.015 Laboratory test finding 02/05/2016 TB Test (QFT) Negative Negative TB Test (QFT) Antigen 0.05 . TB Test (QFT) Antigen Minus Nil 0 . TB Test (QFT) Interpretation See Note 39 TB Test (QFT) Nil 0.05 . TB Test (QFT) Positive Criteria See Note 40 Laboratory test finding 01/31/2016 Erythrocyte Sedimentation 60 High 0-20 Rate Laboratory test finding 01/14/2016 Urine Bilirubin Negative Negative Urine Blood Negative Negative Urine Clarity Clear Clear Urine Color Yellow Yellow Urine Glucose (Ua) Negative Negative Urine Ketones Negative Negative Urine Leukocyte Esterase Negative Negative Urine Nitrite Negative Negative Urine Protein Negative Negative Urine Specific [place] 1.010 1.010-1.030 Urine Urobilinogen 0.2 0.2-1.0 Urine pH 8.0 High 6.5-7.5 Laboratory test finding 01/14/2016 Alanine Aminotransferase (Alt/SGPT) 17 12-78 Albumin 3.3 Low 3.4-5.0 Albumin/Globulin Ratio 0.7 Alkaline Phosphatase 126 High 45-117 Anion Gap 7 Low 8-16 Anisocytosis 2+ Aspartate Amino Transf (Ast/Sgot) 16 15-37 BUN/Creatinine Ratio 24.5 Basophils # (Auto) 0.03 Low 0.1-0.2 Basophils % 2 0-2 Blood Urea Nitrogen 27 High 7-18 Calcium Level 8.8 8.5-10.1 Carbon Dioxide Level 28 21-32 Chloride Level 105 98-107 Creatinine 1.1 0.6-1.3 Differential Total Cells Counted 100 Eosinophils # (Auto) 0.28 0.0-0.5 Eosinophils % 4 0-5 Globulin 4.9 High 1.9-4.3 Glucose Screen 175 High 74-106 Hematocrit 35.4 38.0-48.0 Hemoglobin 10.5 Low 12.8-17.0 Lipase 174 73-393 Lymphocytes # (Auto) 0.90 Low 1.8-7.0 Lymphocytes % 17 17-56 Manual Slide Review (Hematology) Diff Ordered Mean Corpuscular Hemoglobin 25.1 Low 27.0-33.0 Mean Corpuscular Hemoglobin Concent 29.7 Low 31.7-36.0 Mean Corpuscular Volume 84.5 80.0-96.0 Mean Platelet Volume 9.9 6.6-10.6 Microcytosis 1+ Monocytes # (Auto) 0.60 0.0-0.8 Monocytes % 6 0-10 Neutrophils # (Auto) 5.05 1.8-7.0 Neutrophils % 71 33-73 Pathologist Review (Hematology) Indicated,Slide Sent Platelet Count 248 150-400 Platelet Estimate Normal Potassium Level 4.0 3.5-5.1 RDW Coefficient of Variation 26.9 High 11.6-15.8 Red Blood Count 4.19 Low 4.20-5.80 Red Cell Distribution Width 79.7 High 36-51 Sodium Level 140 136-145 Total Bilirubin 0.5 0.2-1.0 Total Protein 8.2 6.4-8.2 White Blood Count 6.9 3.4-10.5 Laboratory test finding 01/10/2016 Alanine Aminotransferase (Alt/SGPT) 14 12-78 Albumin 3.0 Low 3.4-5.0 Albumin/Globulin Ratio 0.7 Alkaline Phosphatase 121 High 45-117 Anion Gap 8 8-16 Aspartate Amino Transf (Ast/Sgot) 15 15-37 BUN/Creatinine Ratio 27.6 Blood Urea Nitrogen 36 High 7-18 Calcium Level 8.6 8.5-10.1 Carbon Dioxide Level 26 21-32 Chloride Level 104 98-107 Cholesterol Level 99 <200 Creatinine 1.3 0.6-1.3 Estimated Average Glucose (eAG) 137 Estimated GFR (Non- 57 >60 Globulin 4.6 High 1.9-4.3 Glucose Screen 141 High 74-106 HDL Cholesterol 40 >40 Hematocrit 31.2 Low 38.0-48.0 Hemoglobin 9.0 Low 12.8-17.0 Hemoglobin A1c 6.4 High 4.2-6.3 LDL Cholesterol, Calculated 48 < 100 Mean Corpuscular Hemoglobin 24.7 Low 27.0-33.0 Mean Corpuscular Hemoglobin Concent 28.8 Low 31.7-36.0 Mean Corpuscular Volume 85.5 80.0-96.0 Mean Platelet Volume 10.9 High 6.6-10.6 Platelet Count 227 150-400 Potassium Level 4.3 3.5-5.1 RDW Coefficient of Variation 26.6 High 11.6-15.8 Red Blood Count 3.65 Low 4.20-5.80 Sodium Level 138 136-145 Thyroid Stimulating Hormone (TSH) 1.24 0.30-4.20 Total Bilirubin 0.3 0.2-1.0 Total Protein 7.6 6.4-8.2 Triglycerides Level 55 <150 Urine Microalbumin 31.9 < 20.0 White Blood Count 6.6 3.4-10.5 Laboratory test finding 12/04/2015 Alanine Aminotransferase (Alt/SGPT) 12 12-78 Albumin 3.0 Low 3.4-5.0 Albumin/Globulin Ratio 0.6 Alkaline Phosphatase 140 High 45-117 Anion Gap 8 8-16 Aspartate Amino Transf (Ast/Sgot) 9 Low 15-37 BUN/Creatinine Ratio 22.3 Basophils # (Auto) 0.05 Low 0.1-0.2 Basophils (%) (Auto) 0.7 0.1-1.0 Blood Urea Nitrogen 29 High 7-18 Calcium Level 8.6 8.5-10.1 Carbon Dioxide Level 27 21-32 Chloride Level 97 Low 98-107 Creatinine 1.3 0.6-1.3 Eosinophils # (Auto) 0.38 0.0-0.5 Eosinophils (%) (Auto) 5.3 High 0.0-5.0 Estimated GFR (Non- 57 >60 Globulin 5.1 High 1.9-4.3 Glucose Screen 220 High 74-106 Hematocrit 24.1 Low 38.0-48.0 Hemoglobin 7.0 Low 12.8-17.0 Lactate Dehydrogenase 119 87-241 Lymphocytes # (Auto) 1.17 Low 1.8-7.0 Lymphocytes (%) (Auto) 16.2 Low 17.0-56.0 Mean Corpuscular Hemoglobin 22.8 Low 27.0-33.0 Mean Corpuscular Hemoglobin Concent 29.0 Low 31.7-36.0 Mean Corpuscular Volume 78.5 Low 80.0-96.0 Mean Platelet Volume 9.7 6.6-10.6 Monocytes # (Auto) 1.05 High 0.0-0.8 Monocytes (%) (Auto) 14.5 High 0.0-10.0 Neutrophils # (Auto) 4.58 1.8-7.0 Neutrophils (%) (Auto) 63.3 33.0-73.0 Platelet Count 319 150-400 Potassium Level 4.5 3.5-5.1 RDW Coefficient of Variation 20.8 High 11.6-15.8 Red Blood Count 3.07 Low 4.20-5.80 Red Cell Distribution Width 57.3 High 36-51 Sodium Level 132 Low 136-145 Total Bilirubin 0.3 0.2-1.0 Total Protein 8.1 6.4-8.2 White Blood Count 7.2 3.4-10.5 Laboratory test finding 11/27/2015 Stool Occult Blood Negative Negative Laboratory test finding 11/27/2015 Activated Partial 39.2 High 23.9-34.3 Thromboplast Time Alanine Aminotransferase (Alt/SGPT) 12 12-78 Albumin 3.0 Low 3.4-5.0 Albumin/Globulin Ratio 0.6 Alkaline Phosphatase 160 High 45-117 Anion Gap 4 Low 8-16 Aspartate Amino Transf (Ast/Sgot) 9 Low 15-37 BUN/Creatinine Ratio 22.5 Blood Urea Nitrogen 27 High 7-18 Calcium Level 8.2 Low 8.5-10.1 Carbon Dioxide Level 29 21-32 Chloride Level 97 Low 98-107 Creatinine 1.2 0.6-1.3 Globulin 4.9 High 1.9-4.3 Glucose Screen 292 High 74-106 Hemoglobin 5.5 12.8-17.0 Inr International Normalized Ratio 2.1 High 0.9-1.1 Iron Level 14 65-175 Pathologist Review (Hematology) Indicated,Slide Sent Potassium Level 4.5 3.5-5.1 Prothrombin Time 23.4 High 12.1-14.9 Sodium Level 130 Low 136-145 Total Bilirubin 0.3 0.2-1.0 Total Iron Binding Capacity 403 250-450 Total Protein 7.9 6.4-8.2 Transferrin % Saturation 3 Low 12-57 Laboratory test finding 12/07/2014 Bedside Glucose 63 Low 70-110 Laboratory test finding 12/06/2014 Magnesium Level 2.2 1.8-2.4 Laboratory test finding 12/05/2014 Anion Gap 6 Low 8-16 BUN/Creatinine Ratio 20.0 Band Neutrophils % 1 0-8 Basophils # (Auto) 0.04 Low 0.1-0.2 Blood Urea Nitrogen 18 7-18 Calcium Level 8.3 Low 8.5-10.1 Carbon Dioxide Level 34 High 21-32 Chloride Level 96 Low 98-107 Creatinine 0.9 0.6-1.3 Differential Total Cells Counted 100 Eosinophils # (Auto) 0.57 High 0.0-0.5 Eosinophils % 5 0-5 Glucose Screen 122 High 74-106 Hematocrit 30.0 Low 38.0-48.0 Hemoglobin 8.9 Low 12.8-17.0 Hypochromasia 2+ Lymphocytes # (Auto) 1.21 Low 1.8-7.0 Lymphocytes % 12 Low 17-56 Mean Corpuscular Hemoglobin 26.7 Low 27.0-33.0 Mean Corpuscular Hemoglobin Concent 29.7 Low 31.7-36.0 Mean Corpuscular Volume 90.1 80.0-96.0 Mean Platelet Volume 9.9 6.6-10.6 Monocytes # (Auto) 1.56 High 0.0-0.8 Monocytes % 7 0-10 Neutrophils # (Auto) 4.18 1.8-7.0 Neutrophils % 75 High 33-73 Platelet Count 392 150-400 Platelet Estimate Normal Potassium Level 3.8 3.5-5.1 RDW Coefficient of Variation 18.4 High 11.6-15.8 Red Blood Count 3.33 Low 4.20-5.80 Red Cell Distribution Width 58.1 High 36-51 Sodium Level 136 136-145 White Blood Count 7.6 3.4-10.5 Blood hypochromia 12/05/2014 Blood hypochromia 2+ detection by light detection by light microscopy microscopy Blood platelet 12/05/2014 Blood platelet Normal adequacy detection by adequacy detection by light microsc light microscopy Neuts Band/leuk NFr 12/05/2014 Neuts Band/leuk NFr 1 0-8 Bld Manual Bld Manual Neuts Seg/leuk NFr 12/05/2014 Neuts Seg/leuk NFr 75 High 33-73 Bld Manual Bld Manual Serum hepatitis B 11/30/2014 Serum hepatitis B Nonreactive Nonreactive virus surface antigen virus surface antigen detection detection HCV ab ser Ia QL 11/30/2014 HCV ab ser Ia QL Nonreactive Nonreactive Laboratory test 11/30/2014 Estimated Average 137 finding Glucose (eAG) Hemoglobin A1c 6.4 High 4.2-6.3 Hepatitis C Antibody 11/30/2014 Hepatitis C Antibody Nonreactive Nonreactive Signal/Cutoff ratio < 0.02 <0.80 41 Laboratory test 11/30/2014 Hepatitis B Surface Nonreactive 42 finding Antigen Nonreactive Laboratory test 11/29/2014 Alanine Aminotransferase 10 Low 12-78 finding (Alt/SGPT) Albumin 2.5 Low 3.4-5.0 Albumin/Globulin Ratio 0.6 Alkaline Phosphatase 87 45-117 Aspartate Amino Transf (Ast/Sgot) 29 15-37 Basophils (%) (Auto) 0.4 0.1-1.0 Eosinophils (%) (Auto) 1.0 0.0-5.0 Globulin 4.3 1.9-4.3 Lactic Acid Level 1.7 0.4-2.0 Lipase 62 Low 73-393 Lymphocytes (%) (Auto) 7.4 Low 17.0-56.0 Monocytes (%) (Auto) 11.4 High 0.0-10.0 Neutrophils (%) (Auto) 79.8 High 33.0-73.0 Total Bilirubin 0.5 0.2-1.0 Total Protein 6.8 6.4-8.2 Unloinc 11/29/2014 Unloinc Culture To Follow Mucus [presence] in 11/29/2014 Mucus [presence] in Moderate None Seen urine sediment by urine sediment by light micros light microscopy Bacteria [presence] 11/29/2014 Bacteria [presence] Moderate High None Seen in urine sediment by in urine sediment by light hal light microscopy Laboratory test 11/29/2014 Urine Amorphous Small Negative finding Sediment Urine Bacteria Moderate High None Seen Urine Bilirubin Small High Negative Urine Blood Negative Negative Urine Clarity Clear Clear Urine Color DK Yellow Yellow Urine Culture Organism: Mixed Urethral Carmen Urine Culture Reflexed Culture To Follow Urine Epithelial Cells Very Few None Seen Urine Glucose (Ua) Negative Negative Urine Ketones 15 High Negative Urine Leukocyte Esterase Negative Negative Urine Mucus Moderate None Seen Urine Nitrite Negative Negative Urine Protein 100 High Negative Urine Uric Acid Crystals Few None Seen Urine Urobilinogen 0.2 0.2-1.0 Urine pH 5.5 Low 6.5-7.5 Laboratory test finding 11/29/2014 Rapid Abdet See Note 43 Laboratory test finding 11/29/2014 Troponin I 0.027 Laboratory test finding 11/29/2014 Omentum Biopsy See Note 44 Lipase SerPl-cCnc 11/29/2014 Lipase SerPl-cCnc 62 Low 73-393 Laboratory test finding 11/29/2014 Kodi Test Yes Arterial Blood Base Excess -2 -2-2 Arterial Blood Hco3 24 22-26 Arterial Blood Oxygen Saturation 94 90-99 Arterial Blood pCO2 at Patient Temp 45 35-45 Arterial Blood pH at Patient Temp 7.34 Low 7.35-7.45 Arterial Blood pO2 at Patient Temp 76 Low 80-105 Blood Gas Liter Flow 3 0-20 Blood Gas Puncture Site [employer]Art. Blood Gas Specimen Type Oxygen Carboxyhemoglobin Percent 1.6 High 0.0-1.5 Hemoglobin Oxygen Saturation 92.0 91.9-98.5 Methemoglobin 0.10 0.00-0.24 Oxygen Delivery Device N/C * Inhaled oxygen flow 11/29/2014 * Inhaled oxygen flow 3 0-20 rate rate Arterial blood pH 11/29/2014 Arterial blood pH 7.34 Low 7.35-7.45 measurement with measurement with patient tempera patient temperature correction Arterial blood partial 11/29/2014 Arterial blood partial 45 35-45 pressure of carbon pressure of carbon dioxide dioxide with temperature correction Arterial blood partial 11/29/2014 Arterial blood partial 76 Low 80-105 pressure of oxygen with pressure of oxygen with tem temperature correction Oxygen saturation in 11/29/2014 Oxygen saturation in 92.0 91.9-98.5 blood blood Unloinc 11/29/2014 Unloinc [employer]. Unloinc N/C Unloinc Oxygen Unloinc Yes Basic Metabolic Panel 11/08/2013 Glucose 315 mg/dL High 76-115 BUN 37 mg/dL High 5-23 Creatinine 1.3 mg/dL 0.5-1.4 Glom Filtration Rate, Estimate 57 mL/min >60 If >60 mL/min >60 45 BUN/Creat 28.4 ratio Sodium 136 mmol/L 136-145 Potassium 4.0 mmol/L 3.5-5.1 Chloride 97 mmol/L Low 98-107 Carbon Dioxide 32 mEq/L High 18-29 Anion Gap 11 mEq/L 8-16 Calcium 9.3 mg/dL 8.5-10.1 Basic Metabolic Panel 10/28/2013 Glucose 215 mg/dL High 76-115 BUN 31 mg/dL High 5-23 Creatinine 1.0 mg/dL 0.5-1.4 Glom Filtration Rate, Estimate >60 mL/min >60 If >60 mL/min >60 46 BUN/Creat 31.0 ratio Sodium 138 mmol/L 136-145 Potassium 4.1 mmol/L 3.5-5.1 Chloride 102 mmol/L 98-107 Carbon Dioxide 29 mEq/L 18-29 Anion Gap 11 mEq/L 8-16 Calcium 8.5 mg/dL 8.5-10.1 Comprehensive Metabolic Panel 08/18/2012 Glucose 128 mg/dL High 76-115 BUN 24 mg/dL High 5-23 Creatinine 0.9 mg/dL 0.5-1.4 Glom Filtration Rate, Estimate >60 mL/min >60 If >60 mL/min >60 47 BUN/Creat 26.6 ratio Sodium 136 mmol/L 136-145 Potassium 4.2 mmol/L 3.5-5.1 Chloride 101 mmol/L 98-107 Carbon Dioxide 28 mEq/L 18-29 Anion Gap 11 mEq/L 8-16 Calcium 8.6 mg/dL 8.5-10.1 Total Protein 6.0 g/dL Low 6.3-8.0 Albumin 3.3 g/dL Low 3.5-5.0 Globulin 2.7 g/dL 1.9-4.3 Alb/Glob 1.2 ratio Bilirubin,Total 0.5 mg/dL 0.2-1.2 Sgot/Ast 24 U/L 16-40 SGPT/Alt 39 U/L 30-65 Alkaline Phosphatase 66 U/L 50-136 1 R53.83 2 Note: Persistent reduction for 3 months or more in an eGFR <60 mL/min/1.73 m2 defines CKD. Patients with eGFR values >/=60 mL/min/1.73 m2 may also have CKD if evidence of persistent proteinuria is present. The original MDRD equation for estimated GFR is not valid for patients less than 18 years of age. Additional information may be found at [email or web address]. 3 Sulfur Chloride Operator: [id number] I50.32 5 Note: Persistent reduction for 3 months or more in an eGFR <60 mL/min/1.73 m2 defines CKD. Patients with eGFR values >/=60 mL/min/1.73 m2 may also have CKD if evidence of persistent proteinuria is present. The original MDRD equation for estimated GFR is not valid for patients less than 18 years of age. Additional information may be found at [email or web address]. 6 Note: Persistent reduction for 3 months or more in an eGFR <60 mL/min/1.73 m2 defines CKD. Patients with eGFR values >/=60 mL/min/1.73 m2 may also have CKD if evidence of persistent proteinuria is present. The original MDRD equation for estimated GFR is not valid for patients less than 18 years of age. Additional information may be found at [email or web address]. 7 Z13.220 E11.42 E55.9 I50.32 I48.4 8 Reference Guidelines*: Desirable: ........... < 200 mg/dL Borderline High: ..... 200-239 mg/dL High: ................ >=240 mg/dL * The National Cholesterol Education Program (NCEP) 9 Reference Guidelines*: Normal: ............. < 150 mg/dL Borderline High: .... 150-199 mg/dL High: ............... 200-499 mg/dL Very High: .......... > 500 mg/dL * Source: National Cholesterol Education Program (NCEP) 10 Reference Guidelines*: Low HDL: ..... < 40 mg/dL Normal: ..... 40-60 mg/dL Desirable: ... > 60 mg/dL *The National Cholesterol Education Program(NCEP) 11 Reference Guidelines*: Optimal:........... <100 mg/dL Near Optimal....... 100-129 mg/dL Borderline High.... 130-159 mg/dL High............... 160-189 mg/dL Very High.......... >=190 mg/dL * Source: National Cholesterol Education Program (NCEP) 12 Elevated levels of HbA1c suggest the need for more aggressive treatment of glycemia. The [place] [employer] recommends that a primary goal of therapy should be a HbA1c of <7% and that physicians should re-evaluate the treatment regimen in patients with HbA1c values consistently >8%. 13 Vitamin D deficiency has been defined by the [place] [employer] and an Endocrine Society practice guideline as a level of serum 25-OH vitamin D less than 20 ng/mL (1,2). The Endocrine Society went on to further define vitamin D insufficiency as a level between 21 and 29 ng/mL (2). 1. IOM ([place] [employer]). 2010. Dietary reference intakes for calcium and D. [place]: The National Academies Press. 2. Jeanine MF, [place], Juliet WILSON, et al. Evaluation, treatment, and prevention of vitamin D deficiency: an Endocrine Society clinical practice guideline. JCEM. 2010; 96(7):1911-30. Performed at: - [facility] [address] [id number] Head Waiter: Felipa Aguero MD, Phone: [phone] Performed at: RN - [facility] [address] [id number] Head Waiter: Felipa Aguero MD, Phone: [phone] 15 Note: Persistent reduction for 3 months or more in an eGFR <60 mL/min/1.73 m2 defines CKD. Patients with eGFR values >/=60 mL/min/1.73 m2 may also have CKD if evidence of persistent proteinuria is present. The original MDRD equation for estimated GFR is not valid for patients less than 18 years of age. Additional information may be found at [email or web address]. 16 E11.621 17 Note: Persistent reduction for 3 months or more in an eGFR <60 mL/min/1.73 m2 defines CKD. Patients with eGFR values >/=60 mL/min/1.73 m2 may also have CKD if evidence of persistent proteinuria is present. The original MDRD equation for estimated GFR is not valid for patients less than 18 years of age. Additional information may be found at [email or web address]. 18 Elevated levels of HbA1c suggest the need for more aggressive treatment of glycemia. The [place] [employer] recommends that a primary goal of therapy should be a HbA1c of <7% and that physicians should re-evaluate the treatment regimen in patients with HbA1c values consistently >8%. 19 N63.22 E11.621 I50.32 20 Elevated levels of HbA1c suggest the need for more aggressive treatment of glycemia. The [place] [employer] recommends that a primary goal of therapy should be a HbA1c of <7% and that physicians should re-evaluate the treatment regimen in patients with HbA1c values consistently >8%. 21 Note: Persistent reduction for 3 months or more in an eGFR <60 mL/min/1.73 m2 defines CKD. Patients with eGFR values >/=60 mL/min/1.73 m2 may also have CKD if evidence of persistent proteinuria is present. The original MDRD equation for estimated GFR is not valid for patients less than 18 years of age. Additional information may be found at [email or web address]. 22 I50.32 23 Note: Persistent reduction for 3 months or more in an eGFR <60 mL/min/1.73 m2 defines CKD. Patients with eGFR values >/=60 mL/min/1.73 m2 may also have CKD if evidence of persistent proteinuria is present. The original MDRD equation for estimated GFR is not valid for patients less than 18 years of age. Additional information may be found at [email or web address]. 24 Note: Persistent reduction for 3 months or more in an eGFR <60 mL/min/1.73 m2 defines CKD. Patients with eGFR values >/=60 mL/min/1.73 m2 may also have CKD if evidence of persistent proteinuria is present. The original MDRD equation for estimated GFR is not valid for patients less than 18 years of age. Additional information may be found at [email or web address]. 25 A FIB RVR 26 Note: Persistent reduction for 3 months or more in an eGFR <60 mL/min/1.73 m2 defines CKD. Patients with eGFR values >/=60 mL/min/1.73 m2 may also have CKD if evidence of persistent proteinuria is present. The original MDRD equation for estimated GFR is not valid for patients less than 18 years of age. Additional information may be found at [email or web address]. 27 I50.32 28 Note: Persistent reduction for 3 months or more in an eGFR <60 mL/min/1.73 m2 defines CKD. Patients with eGFR values >/=60 mL/min/1.73 m2 may also have CKD if evidence of persistent proteinuria is present. The original MDRD equation for estimated GFR is not valid for patients less than 18 years of age. Additional information may be found at [email or web address]. 29 Note: Persistent reduction for 3 months or more in an eGFR <60 mL/min/1.73 m2 defines CKD. Patients with eGFR values >/=60 mL/min/1.73 m2 may also have CKD if evidence of persistent proteinuria is present. The original MDRD equation for estimated GFR is not valid for patients less than 18 years of age. Additional information may be found at [email or web address]. 30 Values below the stated reference ranges of AST and ALT can be seen in normal populations. Clinical correlation is suggested. 31 Note: Persistent reduction for 3 months or more in an eGFR <60 mL/min/1.73 m2 defines CKD. Patients with eGFR values >/=60 mL/min/1.73 m2 may also have CKD if evidence of persistent proteinuria is present. The original MDRD equation for estimated GFR is not valid for patients less than 18 years of age. Additional information may be found at [email or web address]. 32 Values below the stated reference ranges of AST and ALT can be seen in normal populations. Clinical correlation is suggested. 33 QUERY: Reflex add FT3? Y QUERY: Reflex add FT4? Y 34 Tests: CRP Instructions: 35 NO GROWTH: FINAL REPORT 36 NO GROWTH: FINAL REPORT 37 NO GROWTH: FINAL REPORT 38 NO GROWTH: FINAL REPORT 39 The QuantiFERON TB Gold (in Tube) assay is intended for use as an aid in the diagnosis of TB infection. Negative results suggest that there is no TB infection. In patients with high suspicion of exposure, a negative test should be repeated. A positive test indicates infection with Mycobacterium tuberculosis. Among individuals without tuberculosis infection, a positive test may be due to exposure to M. kansasii, M. szulgai or M. marinum. On the Internet, go to cdc.gov/tb for further details. Performed at: RN - [facility] [address] [id number] Head Waiter: Felipa Aguero MD, Phone: [phone] 40 To be considered positive a specimen should have a TB Ag minus Nil value greater than or equal to 0.35 Iu/mL and in addition the TB Ag minus Nil value must be greater than or equal to 25% of the Nil value. There may be insufficient information in these values to differentiate between some negative and some indeterminate test values. 41 Antibodies to HCV not detected; does not exclude early acute HCV infection. 42 HBsAg not detected; does not exclude the possibility of exposure to or early acute infections with HBV. 43 No reportable results 44 OPERATION/PROCEDURE Exploratory lap., small bowel resection DIAGNOSIS: PART 1: "PORTION OF SMALL INTESTINE, RESECTION": PORTION OF BENIGN HEMORRHAGIC SMALL INTESTINE, CONSISTENT WITH ACUTE INTESTINAL OBSTRUCTION. BOTH SURGICAL MARGINS VIABLE. PART 2: "PARTIAL OMENTUM, EXCISION": PORTION OF BENIGN OMENTUM PARENCHYMA, WITH VASCULAR CONGESTION. /clf GROSS Part 1. Received in formalin labeled, "PORTION OF SMALL INTESTINE" is a 19.5 cm. segment of kaplan-purple bowel with a diameter up to 3.0 cm. The central portion is approximately 14.5 cm. and has a hemorrhagic, necrotic appearance. The mesentery measures 2.2 cm. in width and 1.1 cm. in thickness. The distal and proximal margins appear to be viable. No orientation is provided. The bowel was opened on the mesenteric edge. Upon opening it contains hemorrhagic material within the lumen. The mucosal surface corresponding to the purple hemorrhagic area appears to be purple. No evidence of tumor is grossly seen. There is a detached segment of grossly unremarkable bowel measuring 4.3 x 2.5 x 0.5 cm. seen in the container. [employer] sections are submitted as follows: A=two margins, B-D=central portion of the small bowel , E=detached piece. Part 2. Received in formalin labeled, "PARTIAL OMENTUM" are two pieces of kaplan-yellow, soft fibroadipose tissue with focal fibrosis measuring 4.3 x 2.8 x 1.3 cm. and 9.5 x 6.8 x 2.5 cm. On cut surface there appears to be focal hemorrhagic changes, especially in the fibrotic area. No grossly identifiable tumor is seen. Sea Kay[employer] Guide sections are submitted in two blocks. /se MICROSCOPIC Part 1: Sections from both surgical resection margins demonstrate a zone of viable mucosa, and small intestinal wall. The vessels appear congested. Sections taken from the central intestines demonstrate confluent red cell extravasation, through the entire wall, and mucosa. No evidence of vascular thrombi, nor inflammation involving the vessels is seen. Part 2: Section show mature adipose and fibrous tissue, with vascular congestion. PRE OPERATIVE DIAGNOSIS Ventral hernia incarcerated, small bowel obstruction REVIEW CODE CODE: I Signed Electronically signed BLADE MAKI MD [id number] 45 Note: Persistent reduction for 3 months or more in an eGFR <60 mL/min/1.73 m2 defines CKD. Patients with eGFR values >/=60 mL/min/1.73 m2 may also have CKD if evidence of persistent proteinuria is present. The original MDRD equation for estimated GFR is not valid for patients less than 18 years of age. Additional information may be found at [email or web address]. 46 Note: Persistent reduction for 3 months or more in an eGFR <60 mL/min/1.73 m2 defines CKD. Patients with eGFR values >/=60 mL/min/1.73 m2 may also have CKD if evidence of persistent proteinuria is present. The original MDRD equation for estimated GFR is not valid for patients less than 18 years of age. Additional information may be found at [email or web address]. 47 Note: Persistent reduction for 3 months or more in an eGFR <60 mL/min/1.73 m2 defines CKD. Patients with eGFR values >/=60 mL/min/1.73 m2 may also have CKD if evidence of persistent proteinuria is present. The original MDRD equation for estimated GFR is not valid for patients less than 18 years of age. Additional information may be found at [email or web address]. Procedures Date CPT Code Description Status Comment 05/27/2018 85289 EKG-Tracing And Report Completed 04/21/2018 Asp./Injection major joint Completed 12/30/2017 Asp./Injection major joint Completed 11/26/2017 30988 Dual Pacemaker Programming Completed Anayisis, Review And Report 10/01/2017 Asp./Injection major joint Completed 06/24/2017 43554 Pacemaker Interrogaton Eval In Completed Person 06/18/2017 49074 Eye Exam New Patient Completed Comprehensive 06/10/2017 90024 Pacemaker/Cardio-Defibrillator Completed Remote Data Acquistion 06/10/2017 13564 Remote Interrigation Report Completed Interr. Single, Dual Or Multiple Lead 03/27/2017 02180 Pulse Oximetry Completed 03/27/2017 52016 Pressurized/Non-Pressurized Completed Inhalation Treatment,Acute Obstructio 03/19/2017 67002 EKG-Tracing And Report Completed 12/08/2016 44061 EKG-Tracing And Report Completed 11/17/2016 17928 EKG-Tracing And Report Completed 11/05/2016 68364 Remote Interrigation Report Completed Interr. Single, Dual Or Multiple Lead 11/05/2016 71235 Remote Interrigation Report Completed Interr. Single, Dual Or Multiple Lead 11/05/2016 02474 Pacemaker/Cardio-Defibrillator Completed Remote Data Acquistion 11/05/2016 70418 Pacemaker/Cardio-Defibrillator Completed Remote Data Acquistion 10/20/2016 91294 Dual Pacemaker Programming Completed Anayisis, Review And Report 10/20/2016 16298 Dual Pacemaker Programming Completed Anayisis, Review And Report 09/10/2016 41686 Pacemaker/Cardio-Defibrillator Completed Remote Data Acquistion 09/10/2016 07565 Pacemaker/Cardio-Defibrillator Completed Remote Data Acquistion 09/10/2016 54299 Remote Interrigation Report Completed Interr. Single, Dual Or Multiple Lead 09/10/2016 33477 Remote Interrigation Report Completed Interr. Single, Dual Or Multiple Lead 09/08/2016 05892 EKG-Tracing And Report Completed 06/11/2016 35680 Remote Interrigation Report Completed Interr. Single, Dual Or Multiple Lead 06/11/2016 83509 Remote Interrigation Report Completed Interr. Single, Dual Or Multiple Lead 06/11/2016 05521 Pacemaker/Cardio-Defibrillator Completed Remote Data Acquistion 06/11/2016 68894 Pacemaker/Cardio-Defibrillator Completed Remote Data Acquistion 03/31/2016 14243 EKG-Tracing And Report Completed 03/27/2016 87374 Dual Pacemaker Programming Completed Anayisis, Review And Report 03/27/2016 46375 Dual Pacemaker Programming Completed Anayisis, Review And Report 03/27/2016 80935 EKG-Tracing And Report Completed 02/20/2016 00996 Insert or replace pacemaker Completed with electrodes, atrial & ventricle 02/20/2016 32826 Insert or replace pacemaker Completed with electrodes, atrial & ventricle 01/22/2016 58699 Bronchospasm Provocation Completed Evaluation Multi Spirometric Determinati 01/22/2016 58189 Spirometry Completed 01/11/2016 77607 Echocardiogram Complete Completed 11/21/2015 44583 Radiology, Knee 3 Views Completed 11/21/201567801 Asp./Injection major joint Completed 05/19/[address] [facility] Document: 05/19/15 - Op. Report-[facility] 02/20/2015 74547 EKG Interpretation And Report Completed Only 11/29/2014 05055 Umbilical hernia repais Completed incarcerted over age 5 11/29/2014 99664 Enterectomy,Resection Small Completed Intestine/Single Resection/Anastomsis 07/27/2014 80787 Epidural Subarachnoid Injection Completed Lumbar Sacral 05/26/2014 18260 Epidural Subarachnoid Injection Completed Lumbar Sacral 01/10/2014 68292 IV Push Single Or Initial Completed Substance/Drug 09/20/2013 38288 Echocardiogram Complete Completed 01/04/2013 32080 EKG Interpretation And Report Completed Only 11/08/2012 02987 Echocardiogram Complete Completed 07/27/2012 84106 EKG-Tracing And Report Completed 07/20/2012 65260 Echocardiogram Complete Completed 03/24/2011 0000 Due To Insurance Completed 01/14/2011 91768 Anesthesia, Lens Surgery Completed 10/29/2010 15081 EKG-Tracing And Report Completed 11/02/2009 40926 EKG-Tracing And Report Completed 11/02/2009 32141 EKG-Tracing And Report Completed 09/26/2009 70784 EKG Interpretation And Report Completed Only 09/25/2009 76474 Echocardiogram Complete Completed 09/25/2009 60793 EKG Interpretation And Report Completed Only 07/03/2009 87295 Echocardiogram Complete Completed 09/11/200801885 Asp./Injection major joint Completed 08/28/2008 Asp./Injection major joint Completed 08/21/2008 Asp./Injection major joint Completed 08/14/2008 Asp./Injection major joint Completed 08/03/2008 Asp./Injection major joint Completed Encounters Type Date Location Provider CPT E/M Dx Office Visit 05/27/2018 10:30a Cardiology Office Baudilio Frost, 93384 R53.83 PA I48.1 Z95.0 I10 Office Visit 04/21/2018 2:00p [place] [address] M19.011 Office Visit 04/16/2018 1:00p [place] [address] L89.629 E11.42 M19.011 I35.0 I48.4 Office Visit 02/05/2018 1:15p Family Medicine Kiersten Mendieta, [facility] 38532 E11.42 L89.629 R11.0 Office Visit 01/07/2018 1:40p Cardiology Office Jose Guan, 23597 Z95.0 Ugo, [facility] I35.0 I48.4 E11.42 Office Visit 12/11/2017 11:15a [place] [address] R05 E11.42 I48.4 M19.011 Office Visit 12/04/2017 1:45p Family Medicine Kiersten Mendieta, 11856 J18.9 APPLIED PS[employer]CHOLOGY TE[employer]ER Office Visit 12/02/2017 1:00p [place] [address] M19.011 M19.012 Office Visit 11/04/2017 11:00[place] [address] E66.01 R54 R26.2 Office Visit 10/01/2017 11:15a [place] [address] M19.011 Office Visit 09/24/2017 1:40p Cardiology Office Virginia Hunt 05317 I50.32 ERNESTINE Dominguez, [facility] I10 I48.4 E78.5 Z95.0 Office Visit 09/16/2017 2:45p [place] [address] E11.42 E66.01 I50.32 I10 Z95.0 M06.869 E78.5 E11.621 Office Visit 09/09/2017 10:30a Physical Medicine [place] [address] E66.01 Infectious Disease R54 R26.2 Office Visit 08/05/2017 11:00a Physical Medicine [place] [address] E11.42 Infectious Disease E11.621 I50.32 R60.0 E66.01 R26.2 R54 Office Visit 07/15/2017 3:30p [place] [address] E11.42 E11.621 I50.32 N63.22 R60.0 Office Visit 06/24/2017 2:00p [place] [address] I50.32 I10 I49.5 Z95.0 I48.4 Office Visit 06/03/2017 3:15p [place] [address] N63.22 R60.0 I50.32 E11.621 Office Visit 05/22/2017 10:30a Physical Medicine [place] [address] E66.01 Infectious Disease L89.629 M25.569 R26.2 Office Visit 05/06/2017 2:15p [place] [address] I50.32 E11.621 R60.0 M06.869 Office Visit 04/01/2017 3:00p [place] [address] J44.9 E11.621 R60.0 I10 I48.4 Office Visit 03/27/2017 11:15a Family Medicine Kiersten Mendieta FNP 61380 J44.1 L03.116 I10 E66.01 Office Visit 03/19/2017 3:00p Cardiology Office Virginia Hunt, 39946 I50.32 MSN, [facility] I48.4 I49.5 Z95.0 Office Visit 02/27/2017 1:30p [place] [address] E11.621 I50.32 G47.9 I10 R60.0 Office Visit 02/16/2017 1:45p Family Medicine Kiersten Mendieta, 35934 M79.606 APPLIED PSYCHOLOGY TEACHER J43.9 R53.83 E11.8 Office Visit 02/06/2017 11:00a Cardiology Office Virginia Hunt, 81521 I50.32 MSN, [facility] I48.0 I48.4 I49.5 Z95.0 E66.01 Office Visit 01/22/2017 2:15p Surgical Office Wilfredo Wilkins 62591 R93.5 Ugo Tyler Office Visit 12/08/2016 1:00p Cardiology Office Virginia Hunt, 88104 I48.0 MSN, [employer] I50.32 I49.5 I48.4 Z95.0 G47.9 Office Visit 11/17/2016 2:10p Cardiology Office Baudilio Frost, JO-ANN 67169 I48.0 R53.83 I50.32 Z95.0 Office Visit 11/03/2016 2:46p Cardiology Office Jose Guan, 21892 I48.0 MSandra, [facility] Office Visit 10/31/2016 11:53a Physical Medicine & Paige Banda M.D. 69197 L03.115 Infectious Disease Office Visit 09/08/2016 2:20p Cardiology Office Virginia Hunt 67878 I48.4 Angelica, MSN, [employer]CH[employer] TE[employer]ER I50.32 I49.5 Z95.0 Office Visit 05/12/2016 1:00p Cardiology Office Virginia Hunt Angelica, 91541 I48.3 MSN, [employer]CH[employer]ER I49.5 I50.32 Z95.0 Office Visit 04/24/2016 1:30[place] [address] D50.9 Office Visit 04/07/2016 1:30p Cardiology Office Virginia Hunt Angelica, 40419 I50.32 MSN, [employer]CH[employer] TE[employer]ER I49.5 Z95.0 I48.3 R00.1 L03.818 Office Visit 03/31/2016 11:00a Cardiology Office Virginia Hunt Angelica, 32265 I50.32 MSN, APPLIED PSYCHOLOGY TE[employer]ER I49.5 Z95.0 I48.3 R00.1 L03.818 S91.235S Office Visit 03/27/2016 11:10a Cardiology Office HuntMeghnaelizabeth Dominguez, 12043 I50.32 MSN, AP[employer] PSYCHOLOGY TEACHER I48.3 R00.1 Z95.0 L03.818 Office Visit 02/20/2016 2:30p Operating Room Wilfredo Wilkins, 39892 I49.5 Ugo R00.1 Office Visit 02/19/2016 4:05p Physical Medicine & Paige Banda M.D. 01744 I49.5 Infectious Disease R00.1 Office Visit 02/15/2016 9:06a Cardiology Office Jose Guan, 82460 I49.5 M.DEmilia, [facility] R00.1 I48.0 Office Visit 12/21/2015 2:30[place] [address] D50.9 K22.70 K57.30 K21.9 Office Visit 11/21/2015 10:00a Orthopaedic Office Zaheer Tavarez M.D. 34215 M17.11 M25.561 Office Visit 04/03/2015 1:20p Cardiology Office Jose Guan, 08490 428.0 M.DEmilia, FAC 427.31 Office Visit 02/20/2015 11:25a Cardiology Office Jose Guan, 64436 428.0 M.DEmilia, FACC 427.89 Office Visit 11/29/2014 4:48p [facility] [place] [address] 553.20 [facility] 560.9 Office Visit 11/14/2014 11:59a Primary Care Office Paige Banda M.D. 78299 428.0 496 Office Visit 11/13/2014 1:44p [facility] [place] [address] 486 [facility] Office Visit 10/09/2014 5:23p [facility] Brinda Cortes M.D. 08880 428.0 [facility] 491.21 Office Visit 08/04/2014 9:31a [facility] [place] [address] 428.21 [facility] 486 Office Visit 08/04/2014 12:27p Cardiology Office Jose Guan, 67196 428.0 M.DEmilia, [facility] Office Visit 06/26/2014 3:20p [place] [address] 724.2 724.00 Office Visit 04/24/2014 3:20p [place] [address] 724.2 Office Visit 04/03/2014 9:01a [facility] Megha Ruth 21182 682.3 [facility] MSandra 682.6 Office Visit 01/10/2014 11:20a Cardiology Office Jose Guan, 14654 782.3 M.D., FACC 427.31 Office Visit 11/10/2013 10:06a [facility] Ady Schilling 73535 682.9 [facility] 250.00 401.9 Office Visit 11/10/2013 1:00p Cardiology Office Jose Guan, 82300 428.0 M.D., FACC 782.3 427.31 401.1 Office Visit 09/20/2013 2:19p [facility] Megha Ruth M.D. 43028 428.0 [facility] 427.89 782.3 Office Visit 09/20/2013 12:19p Cardiology Office Jose Guan, 84551 428.0 M.D., FACC Office Visit 08/02/2013 3:40p Cardiology Office Jose Guan, 25918 428.0 M.D., FACC 427.31 Office Visit 03/14/2013 3:30p Cardiology Office Virginia Hunt, 47844 428.0 MSN, AP[employer] PS[employer]CHOLOGY TE[employer]ER 427.31 401.1 278.01 250.02 Office Visit 11/09/2012 3:36p Cardiology [place] 18703 786.05 Office Visit 09/02/2012 2:30p Cardiology Office Jose Guan, 66927 427.31 M.D., FACC 428.0 401.1 250.00 327.23 Office Visit 08/20/2012 3:10p Cardiology Office Virginia Hunt, 16234 428.0 MSN, AP[employer] PSYCHOLOGY TEACHER 401.1 427.31 250.00 278.01 327.23 Office Visit 07/27/2012 2:20p Cardiology Office Jose Guan, 16614 428.0 M.D., FACC 401.1 250.00 427.31 Office Visit 07/20/2012 4:40p [place] [address] 428.0 Office Visit 10/29/2010 2:40p Cardiology Office Virginia Hunt, 43765 794.31 MSN, APPLIED PSYCHOLOGY TEACHER 401.1 272.4 786.05 327.23 Office Visit 11/02/2009 1:50p Cardiology Office Virginia Hunt, 93515 794.31 MSN, APPLIED PSYCHOLOGY TEACHER 401.1 272.4 786.05 327.23 278.01 Plan of Care Future Appointment(s):11/25/2018 10:45 am - Virginia Hunt, MSN, APPLIED PSYCHOLOGY TEACHER at Cardiology Misjem7611/25/2018 11:00 am - Baudilio Frost PA at Cardiology Gxkbze8306/29/2018 1:00 pm - Yves Jones DPM at Podiatry Ubdjez8706/28/2018 2: 25 pm - Yves Jones DPM at Podiatry Pnbpbo9707/16/2018 1:00 pm - Bety Cornelius MD at Family Rpjhzxvq71/02/2018 11:00 am - Loki Villalobos MD at Oylumlowefcge35/11/2018 - Baudilio Frost, PAR53.83 Other fatigueComments: Will check CBC, CMP, and TSH. Recommended to call his PCP if symptoms persist over the weekend.I48.1 Persistent atrial fibrillationComments:Monitor. No changes.Z95.0 Presence of cardiac pacemakerComments:Will follow in our pacer clinic, per protocol.I10 Essential (primary) hypertensionComments:BMP pending. Monitor.AllFollow up:6 months
--- NOTE | 2018-06-02 13:20 | UC ---
UC General HPI - HPI Summary HPI Summary: 82 year old male with 2 day history of nontraumatic left wrist pain and swelling. He also reports onset of right arm pain and numbness last night while at rest that radiated into the right side of his neck. Associated with fatigue, general malaise, and a brief episode mid-sternal chest pain this morning. He has significant cardiac history including paroxysmal A-fib, CHF, HTN, and has a pacemaker as well as COPD and RA. Denies weakness, dizziness, palpitations, diaphoresis, abdominal pain, nausea, or vomiting. - History of Current Complaint Stated Complaint: LEFT WRIST/RIGHT ARM/SHOULDER PAIN Time Seen by Provider: 06/02/18 13:09 Hx Obtained From: Patient - Allergy/Home Medications Allergies/Adverse Reactions: Allergies Allergy/AdvReac Type Severity Reaction Status Date / Time levofloxacin Allergy Unknown Verified 06/02/18 13:37 Reaction Details lisinopril Allergy Unknown Verified 06/02/18 13:37 Reaction Details ALOE VESTA SOAP Allergy Unknown Uncoded 06/02/18 13:37 Reaction Details Home Medications: Home Medications Cholecalciferol TAB* [Vitamin D TAB*] 2,000 units PO DAILY 06/02/18 [History Confirmed 06/02/18] Fexofenadine (NF) [Ludivina (NF)] 60 mg PO QAM 06/02/18 [History Confirmed ] Multivitamins/Minerals TAB* [Theragran/minerals TAB*] 1 tab PO DAILY 06/02/18 [ History Confirmed 06/02/18] [place]-3 Fatty Acids/Fish Oil [[place] 3 1,000 mg Softgel] 1 each PO BID 06/02/18 [ History Confirmed 06/02/18] PMH/Surg Hx/FS Hx/Imm Hx - Additional Past Medical History Additional PMH: Rheumatoid arthritis, anemia, peripheral neuropathy Endocrine History: Diabetes Cardiovascular History: Cardiac Disease, Hypertension, Pacemaker/ICD, Congestive Heart Failure, Atrial Fibrillation Respiratory History: COPD - Surgical History Surgical History: Yes Surgery Procedure, Year, and Place: colon/rupture. 1974--TEETH EXTRACTION - Family History Known Family History: Positive: Cardiac Disease, Hypertension - Social History Occupation: Disabled Lives: Alone Alcohol Use: None Substance Use Type: None Smoking Status (MU): Former Smoker Have You Smoked in the Last Year: No When Did the Patient Quit Smoking/Using Tobacco: 2001 - Immunization History Vaccination Up to Date: Yes Review of Systems Constitutional: Fatigue Skin: Negative Respiratory: Shortness Of Breath Cardiovascular: Negative Gastrointestinal: Negative Motor: Negative Neurovascular: Negative Musculoskeletal: Other: - See HPI Neurological: Paresthesia Is Patient Immunocompromised?: Yes - Humira All Other Systems Reviewed And Are Negative: Yes Physical Exam Triage Information Reviewed: Yes Appearance: No Pain Distress, Ill-Appearing - Chronically, Obese Neck: Positive: Supple, Nontender Respiratory: Positive: No respiratory distress, Wheezing - diffuse bilateral wheezes Cardiovascular: Positive: RRR, No Murmur, Other: - 2+ bilateral pitting edema lower extremities Abdomen Description: Positive: Nontender, No Organomegaly, Soft. Negative: Distended, Guarding Musculoskeletal: Positive: Strength Intact - bilateral credit risk officer strength intact, ROM Limited @ - Right shoulder d/t pain, Edema @ - Left wrist with erythema, Other: - Tenderness over the AC joint Neurological: Positive: Alert, Other: - Sensation intact to bilateral upper extremities Skin Exam: Normal - General skin exam normal Diagnostics - EKG Cardiac Rate: NL - Rate 60 Cardiac Rhythm: Other Rhythm: Normal - Ventricularly paced rhythm Ectopy: None ST Segment: Normal EKG Comparison: No Significant Change - Compared to EKG from 11/13/2017 Course/Dx - Course Course Of Treatment: 82 year old male with 2 day history of nontraumatic left wrist pain and swelling as well as onset of right arm pain and numbness last night. Associated with fatigue, general malaise, and brief episode mid-sternal chest pain this morning. He has significant cardiac history including A-fib and CHF as well as HTN, and DM. EKG shows 100% paced rhythm unchanged from previous EKG from 10/2017. He also has history of RA and receives Humira. I suspect that his pain is related to his RA however he is a poor historian and with his significant medical histories cannot rule out other potential origins including cardiac therefore recommending evaluation in the ED. - Differential Dx - Multi-Symptom Differential Diagnoses: Cardiac Ischemia, Other - pneumonia, PE, cholecystis, RA Provider Diagnoses: right arm pain and numbness, left wrist pain Discharge - Sign-Out/Discharge Documenting (check all that apply): Patient Departure All imaging exams completed and their final reports reviewed: No Studies - Discharge Plan Condition: Stable Disposition: HOME-RECOMMEND TO ED Patient Education Materials: Chest Pain (ED) Referrals: Bety Cornelius MD [Primary Care Provider] - Additional Instructions: With your history of heart problems I cannot rule out the possibility that your pain may be related to your heart issues. I am recommending that you go directly to the emergency room for further evaluation. - Billing Disposition and Condition Condition: STABLE Disposition: Home-Recommend to ED - Attestation Statements Provider Attestation: I was available for consult. This patient was seen by the ADAN. The patient was not presented to, seen by, or examined by me. -Alli
[2018-06-02 13:36] VITALS: BP 104/60
== END 2018-06-02 13:46 | disposition home health service (06) ==
LOC: UCCORT 11:50
DX: M25.532 Pain in left wrist (principal); M79.601 Pain in right arm; R20.0 Anesthesia of skin; I11.0 Hypertensive heart disease with heart failure; I50.9 Heart failure, unspecified; J44.9 Chronic obstructive pulmonary disease, unspecified; M06.9 Rheumatoid arthritis, unspecified; E11.42 Type 2 diabetes mellitus with diabetic polyneuropathy; D64.9 Anemia, unspecified; E66.9 Obesity, unspecified; Z95.810 Presence of automatic (implantable) cardiac defibrillator; Z86.79 Personal history of other diseases of the circulatory system; Z87.891 Personal history of nicotine dependence; Z88.1 Allergy status to other antibiotic agents; Z88.8 Allergy status to other drugs, medicaments and biological substances; Z91.048 Other nonmedicinal substance allergy status
CPT/HCPCS: 93005; 99212; G0463

== ENCOUNTER 2018-12-01 11:59 | Emergency (ER) | payer MEDICARE ==
--- OUTSIDE RECORDS SUMMARY | 2018-12-01 12:48 | XMS REPORT | Continuity of Care Document ---
:1935 External Reference #:[id number] Author Name Ray Adams DO, MPH Address [address] [place] [address], [address] [place] [address] Care Team Providers Name Role Phone Bety Cornelius M.D. Care Team Information Vessel Operator Unavailable Bety Cornelius M.D. Primary Care Physician Unavailable Payers Date Identification Numbers Payment Provider Subscriber Policy Number: [id number] [employer] Mina Rhodes SR PayID: [id number] [address] [place] [address] Policy Number: [id number] Medicaid [place] Mina Rhodes SR PayID: [id number] [address] [place] [address] Advance Directives Description No Information Available Problems Date Description Provider Status Onset: 09/21/2017 Type 2 diabetes mellitus Ray Adams DO, MPH Active Family History Date Family Member(s) Observation Comments Father due to Pneumonia () Mother due to Pulmonary Issues () Children 3 Children 5 Siblings 3 Grandchildren Several Social History Type Date Description Comments Sex Unknown Marital Status Single Lives With Daughter Occupation Retired Work Status Not Currently Working ETOH Use Denies alcohol use Tobacco Use Start: Unknown End: Unknown Patient is a former smoker Recreational Drug Use Denies Drug Use Smoking Status Reviewed: 11/02/18 Patient is a former smoker Allergies, Adverse Reactions, Alerts Date Description Reaction Status Severity Comments 07/23/2017 Levofloxacin Active 07/23/2017 Lisinopril Active 07/23/2017 Metolazone Active 07/23/2017 Lipitor Active 07/23/2017 Bactrim Active 07/23/2017 Sulfa Antibiotics Active Medications Medication Date Status Form Strength Qnty SIG Indications Ordering Provider Lyrica 11/05/ Active Capsules 200mg 90caps si by Lincoln Adams mouth every Ray, 8 hours as DO, MPH directed chronic pain patient Xtampza ER 11/05/ Active C12a 27mg 30unit take one by Lincoln Adams s mouth every Ray, 1 day as , MPH directed chronic pain. Albuterol / Active Nebulizer (2.5mg/3ML sig: as Unknown Sulfate 0000 ) 0.083% directed Aldactone / Active Tablets 50mg 1 by mouth Unknown 0000 daily Loratadine / Active Tablets 10mg si by Unknown 0000 mouth every morning Amiodarone / Active Tablets 200mg 1 by mouth Unknown HCL 0000 daily Daliresp / Active Tablets 500mcg 1 by mouth Unknown 0000 daily Torsemide / Active Tablets 20mg 1 by mouth Unknown 0000 every morning Ferrous / Active Tablets 325(65Fe) 1 by mouth Unknown Sulfate 0000 mg daily Humira / Active PSKT 40mg/0.8ML 1 injection Unknown 0000 twice a month Potassium / Active Tablets ER 10Meq 1 by mouth Unknown Chloride ER 0000 daily Tylenol Extra / Active Tablets 500mg si by Unknown Strength 0000 mouth twice a day as directed Tylenol / Active Tablets ER 650mg as needed Unknown Arthritis 0000 Pain Xarelto / Active Tablets 20mg 1 by mouth Unknown 0000 at bedtime Ventolin HFA / Active Aerosol 108(90Base 1-2 puffs Unknown 0000 ) mcg/Act as needed every 4-6 hours for shortness for breath Trazodone HCL / Active Tablets 50mg si by Unknown 0000 mouth every night at bedtime as directed Isosorbide / Active Tablets ER 30mg 1 by mouth Unknown Mononitrate 0000 24HR upon ER awakening Vitamin D3 / Active Capsules 5000Unit 1 by mouth Unknown Ultra 0000 after Strength dinner Vitamin C / Active Capsules 500mg 1 by mouth Unknown 0000 daily One Daily / Active Tablets 1 by mouth Unknown Mens Formula 0000 daily with W/O Iron food Magnesium / Active Tablets 400mg 1 by mouth Unknown 0000 daily Zinc / Active Tablets 50mg 1 by mouth Unknown 0000 daily Fish Oil / Active Capsules DR 1200mg 1 by mouth Unknown 0000 twice daily Co Q-10 / Active Capsules 200mg 1 by mouth Unknown 0000 after dinner Acidophilus 00/00/ Active Capsules 1 by mouth Unknown 0000 before breakfast Melatonin 00/ Active Capsules 10mg 1 by mouth Unknown 0000 before bed Xtampza ER / Hx C12a 27mg take one by Unknown 0000 - mouth every 10/07/ day as 2018 directed chronic pain. Immunizations Description No Information Available Vital Signs Date Vital Result Comment 11/02/2018 2:04pm BP Systolic 144 mmHg BP Diastolic 86 mmHg Heart Rate 82 /min Respiratory Rate 20 /min Height 70 inches 5'10" Pain Level 6 Pain at this time. Pain Level With Medicine 6 on average with meds Pain Level Without Medicine 10 05/26 without meds 09/23/2018 2:50pm BP Systolic 132 mmHg BP Diastolic 84 mmHg Heart Rate 86 /min Respiratory Rate 20 /min Height 70 inches 5'10" Weight 258.00 lb pt in wheelchair Pain Level 7 Pain at this time. Pain Level With Medicine 6 on average with meds Pain Level Without Medicine 10 05/26 without meds BMI (Body Mass Index) 37.0 kg/m2 08/25/2018 2:45pm BP Systolic 138 mmHg BP Diastolic 86 mmHg Heart Rate 88 /min Respiratory Rate 20 /min Height 70 inches 5'10" Weight 258.00 lb pt in wheelchair Pain Level 9 Pain at this time. Pain Level With Medicine 8 on average with meds Pain Level Without Medicine 10 05/26 without meds BMI (Body Mass Index) 37.0 kg/m2 07/20/2018 2:49pm BP Systolic 128 mmHg BP Diastolic 84 mmHg Heart Rate 86 /min Respiratory Rate 20 /min Height 70 inches 5'10" Weight 258.00 lb Pain Level 9 Pain at this time. Pain Level With Medicine 8 on average with meds Pain Level Without Medicine 10 05/26 without meds BMI (Body Mass Index) 37.0 kg/m2 06/17/2018 2:39pm BP Systolic 128 mmHg BP Diastolic 80 mmHg Heart Rate 74 /min Respiratory Rate 20 /min Height 70 inches 5'10" Weight 258.00 lb Pain Level 7 Pain at this time. Pain Level With Medicine 6 on average with meds Pain Level Without Medicine 10 05/26 without meds BMI (Body Mass Index) 37.0 kg/m2 05/06/2018 2:45pm BP Systolic 144 mmHg BP Diastolic 86 mmHg Heart Rate 82 /min Respiratory Rate 20 /min Height 70 inches 5'10" Weight 258.00 lb Pain Level 8 Pain at this time. Pain Level With Medicine 8 on average with meds Pain Level Without Medicine 10 05/26 without meds BMI (Body Mass Index) 37.0 kg/m2 04/06/2018 2:13pm BP Systolic 136 mmHg BP Diastolic 86 mmHg Heart Rate 84 /min Respiratory Rate 20 /min Height 70 inches 5'10" Weight 258.00 lb wheelchair Pain Level 7 Pain at this time. Pain Level With Medicine 6 on average with meds Pain Level Without Medicine 10 05/26 without meds BMI (Body Mass Index) 37.0 kg/m2 03/09/2018 2:33pm BP Systolic 136 mmHg BP Diastolic 82 mmHg Heart Rate 80 /min Respiratory Rate 20 /min Height 70 inches 5'10" Weight 258.00 lb Pain Level 8 Pain at this time. Pain Level With Medicine 7 on average with meds Pain Level Without Medicine 10 05/26 without meds BMI (Body Mass Index) 37.0 kg/m2 02/08/2018 2:40pm BP Systolic 128 mmHg BP Diastolic 86 mmHg Heart Rate 80 /min Respiratory Rate 20 /min Height 70 inches 5'10" Weight 258.00 lb Pain Level 8 Pain at this time. Pain Level With Medicine 7 on average with meds Pain Level Without Medicine 10 05/26 without meds BMI (Body Mass Index) 37.0 kg/m2 01/08/2018 1:16pm BP Systolic 132 mmHg BP Diastolic 84 mmHg Heart Rate 86 /min Respiratory Rate 20 /min Height 70 inches 5'10" Weight 258.00 lb Pain Level 8 Pain at this time. Pain Level With Medicine 8 on average with meds Pain Level Without Medicine 10 05/26 without meds BMI (Body Mass Index) 37.0 kg/m2 12/08/2017 10:30am BP Systolic 136 mmHg BP Diastolic 86 mmHg Heart Rate 84 /min Respiratory Rate 20 /min Height 70 inches 5'10" Weight 296.00 lb Pain Level 9 Pain at this time. Pain Level With Medicine 8 on average with meds Pain Level Without Medicine 10 05/26 without meds BMI (Body Mass Index) 42.5 kg/m2 11/05/2017 2:40pm BP Systolic 122 mmHg BP Diastolic 86 mmHg Heart Rate 80 /min Respiratory Rate 20 /min Height 70 inches 5'10" Weight 296.00 lb Pain Level 9 Pain at this time. Pain Level With Medicine 8 on average with meds Pain Level Without Medicine 10 05/26 without meds BMI (Body Mass Index) 42.5 kg/m2 10/07/2017 2:48pm BP Systolic 124 mmHg BP Diastolic 70 mmHg Heart Rate 76 /min Respiratory Rate 20 /min Height 70 inches 5'10" Weight 294.00 lb Pain Level 8 Pain at this time. Pain Level With Medicine 7 on average with meds Pain Level Without Medicine 10 05/26 without meds BMI (Body Mass Index) 42.2 kg/m2 09/21/2017 2:20pm BP Systolic 136 mmHg BP Diastolic 84 mmHg Heart Rate 86 /min Respiratory Rate 20 /min Height 70 inches 5'10" Weight 294.00 lb Pain Level 8 Pain at this time. Pain Level Without Medicine 10 05/26 without meds BMI (Body Mass Index) 42.2 kg/m2 Results Description No Information Available Procedures Date Code Description Status 09/23/2018 27771 Brief Emotional/Behav Assessment W/ Scoring Doc Per Completed Standard Inst 07/20/2018 10327 Therapeutic, Prophylactic Or Diagnostic Injection Subq/Im Completed 06/17/2018 27341 Therapeutic, Prophylactic Or Diagnostic Injection Subq/Im Completed 05/06/2018 07847 Therapeutic, Prophylactic Or Diagnostic Injection Subq/Im Completed 04/06/2018 58234 Therapeutic, Prophylactic Or Diagnostic Injection Subq/Im Completed 03/09/2018 73676 Therapeutic, Prophylactic Or Diagnostic Injection Subq/Im Completed 12/08/2017 29463 Therapeutic, Prophylactic Or Diagnostic Injection Subq/Im Completed Encounters Type Date Location Provider Dx Diagnosis Office Visit 09/23/2018 Main Office as Of Ray Adams DO G89.29 Other chronic pain 2:45p 09/17/13 MPH M15.0 Primary generalized (osteo)arthritis M25.561 Pain in right knee M25.562 Pain in left knee M25.511 Pain in right shoulder Z13.31 Encounter for screening for depression 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 Office Visit 08/25/2018 3:15p Main Office as Ray Adams G89.29 Other chronic Of 09/17/13 DO, MPH pain M15.0 Primary generalized (osteo)arthritis M25.561 Pain in right knee M25.562 Pain in left knee M25.511 Pain in right shoulder 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 Office Visit 07/20/2018 3:30p Main Office as Ray Adams G89.29 Other chronic Of 09/17/13 DO, MPH pain M15.0 Primary generalized (osteo)arthritis M25.561 Pain in right knee M25.562 Pain in left knee M25.511 Pain in right shoulder Z71.89 Other specified counseling R53.83 Other fatigue Z79.891 [facility] (current) use of opiate analgesic Office Visit 06/17/2018 3:00p Main Office as Ray Adams G89.29 Other chronic Of 09/17/13 DO, MPH pain M15.0 Primary generalized (osteo)arthritis M25.561 Pain in right knee M25.562 Pain in left knee M25.511 Pain in right shoulder R53.83 Other fatigue 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 Office Visit 05/06/2018 2:45p Main Office as Ray Adams G89.29 Other chronic Of 09/17/13 DO, MPH pain M15.0 Primary generalized (osteo)arthritis M25.561 Pain in right knee M25.562 Pain in left knee M79.604 Pain in right leg M25.511 Pain in right shoulder R53.83 Other fatigue Z79.891 MCC (current) use of opiate analgesic Office Visit 04/06/2018 2:15p Main Office as Ray Adams G89.29 Other chronic Of 09/17/13 DO, MPH pain M15.0 Primary generalized (osteo)arthritis M79.604 Pain in right leg M25.562 Pain in left knee M25.511 Pain in right shoulder M25.561 Pain in right knee R53.83 Other fatigue Z79.891 M[facility] (current) use of opiate analgesic Office Visit 03/09/2018 2:45p Main Office as Ray Adams G89.29 Other chronic Of 09/17/13 DO, MPH pain M15.0 Primary generalized (osteo)arthritis M25.562 Pain in left knee M25.561 Pain in right knee M25.511 Pain in right shoulder M79.604 Pain in right leg Z79.891 MCC (current) use of opiate analgesic Office Visit 02/08/2018 2:45p Main Office as Ray Adams G89.29 Other chronic Of 09/17/13 DO, MPH pain M15.0 Primary generalized (osteo)arthritis M25.562 Pain in left knee M25.561 Pain in right knee Z79.891 MCC (current) use of opiate analgesic Office Visit 01/08/2018 1:15p Main Office as Ray Adams G89.29 Other chronic Of 09/17/13 DO, MPH pain M15.0 Primary generalized (osteo)arthritis M25.562 Pain in left knee M25.561 Pain in right knee M25.511 Pain in right shoulder 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 Office Visit 12/08/2017 10:00a Main Office as Ray Adams G89.29 Other chronic Of 09/17/13 DO, MPH pain M15.0 Primary generalized (osteo)arthritis M79.604 Pain in right leg M25.562 Pain in left knee M25.561 Pain in right knee M79.601 Pain in right arm M25.511 Pain in right shoulder R53.83 Other fatigue Z79.891 M[facility] (current) use of opiate analgesic Office Visit 11/05/2017 2:45p Main Office as Ray Adams G89.29 Other chronic Of 09/17/13 DO, MPH pain M15.0 Primary generalized (osteo)arthritis M79.604 Pain in right leg M25.561 Pain in right knee M25.562 Pain in left knee M79.601 Pain in right arm M25.511 Pain in right shoulder M06.80 Other specified rheumatoid arthritis, unspecified site Z79.891 MCC (current) use of opiate analgesic Office Visit 10/07/2017 2:30p Main Office as Ray Adams G89.29 Other chronic Of 09/17/13 DO, MPH pain M15.0 Primary generalized (osteo)arthritis M25.511 Pain in right shoulder M25.562 Pain in left knee M25.561 Pain in right knee M79.601 Pain in right arm M79.604 Pain in right leg M06.80 Other specified rheumatoid arthritis, unspecified site 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 Office Visit 09/21/2017 1:45p Main Office as Ray Adams, G89.29 Other chronic Of 09/17/13 , MPH pain M25.511 Pain in right shoulder Z95.0 Presence of cardiac pacemaker E11.8 Type 2 diabetes mellitus with unspecified complications I48.2 Chronic atrial fibrillation M25.561 Pain in right knee M25.562 Pain in left knee M15.0 Primary generalized (osteo)arthritis M79.601 Pain in right arm M79.604 Pain in right leg E66.8 Other obesity 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 Symptoms and complaints discussed and reviewed today. No significant changes in physical findings. Continue current medical pain management.M15.0 Primary generalized (osteo)arthritisComments:Chronic. Symptoms and complaints discussed and reviewed today. No significant changes in physical findings. Continue current medical pain management.M25.511 Pain in right shoulderComments:Chronic. Symptoms and complaints discussed and reviewed today. No significant changes in physical findings. Continue current medical pain management.M25.562 Pain in left kneeComments:Chronic.Symptoms and complaints discussed and reviewed today. No significant changes in physical findings. Continue current medical pain management.M25.561 Pain in right kneeComments: Chronic.Symptoms and complaints discussed and reviewed today. No significant changes in physical findings. Continue current medical pain management.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New Labs:Urine Drug Screen, Ordered: 11/02/18Comments:Urine drug screen sample taken today to monitor opiate use and to monitor use of illicit substances.Will discuss results at next appointment.The following tests were ordered:6 AM, AMPH, MARYBEL, AIXA, BUP, CARIS , COCM, COT, ETG, FENT, MCSHSG, OPI, OXY, PCP, TAPEN, XTSY, ZOLP. A urine drug test (UDT) was ordered for this patient and collected on site today. Creatinine has been ordered as well for specimen validity, not for kidney function. Preliminary UDT results are not final and should not be used to determine patient care or plan of treatment. Initially a qualitative immunoassay screen will be done. Any inconsistent or positive findings will be further tested with a more comprehensive quantitative confirmation LCMS study. It is part of the treatment process of prescribing controlled substances and is considered standard of care.R53.83 Other fatigueComments:Symptoms and complaints discussed and reviewed today. No significant changes in physical findings. Continue current medical pain management. B12 injection administered after patient evaluated. 1ml IM for fatigue. (See Consent for injection-B12 document for lot number and expiration date.)AllComments:All above symptoms and complaints discussed as well as diagnoses reviewed.Continue trial of opioid pain management - note changes below; injection therapy, osteopathic manipulation (OMT), PT / modalities, and consults as needed to manage chronic pain.Side effects discussed; anticipatory guidance given. Patient clearly understands and agrees with all medical treatments and suggestions. All medicines prescribed are adequate and appropriate for this patient's complaint of pain, medical history, physical, and personal goals.Goals of Treatment are to provide adequate and appropriate multidisciplinary medical pain management to increase/ maintain patient's quality of life and functionality while maintaining satisfactory side effect profile and minimizing group home end-organ damage. Activity as toleratedContinue with PCP
--- OUTSIDE RECORDS SUMMARY | 2018-12-01 12:49 | XMS REPORT | Continuity of Care Document ---
:1935 External Reference #:[id number] Author Name Bety Cornelius MD Address [address] [facility] [place] [address] Care Team Providers Name Role Phone Bety Cornelius MD Care Team Information Chief Scientist Unavailable Bety Cornelius MD Primary Care Physician Unavailable Payers Date Identification Numbers Payment Provider Subscriber Policy Number: [id number] [employer] Medicare Mina Rhodes Group Number: [id number] [address] PayID: [id number] [place] [address] Policy Number: [id number] Medicaid Mina Rhodes PayID: [id number] [address] [place] [address] Advance Directives Description No Information Available Problems Date Description Provider Status Onset: 07/27/2012 Benign essential hypertension Jose Guan M.D., Active FACC Onset: 07/27/2012 Atrial fibrillation Jose Guan M.D., Active FACC Onset: 12/21/2015 Extreme obesity with alveolar Herminio [...] Sinus node dysfunction [place] Hunt, Active MSN, FINISHED GOODS INSPECTOR Onset: 03/31/2016 Cardiac pacemaker in situ [place] Hunt, Active MSN, FINISHED GOODS INSPECTOR Onset: 12/21/2015 Allergic rhinitis Herminio Hinton MD [...] Cornelius MD Active Onset: 10/01/2017 Localized, 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 Onset: 01/07/2018 Aortic valve disorder Jose Guna M.D., Active [facility] Onset: 10/08/2018 Persistent atrial fibrillation Bety Cornelius MD Active Onset: 10/08/2018 Vitamin D deficiency Bety Cornelius MD Active Onset: 03/27/2016 Chronic diastolic heart failure [place] Hunt, Inactive MSN, FINISHED GOODS INSPECTOR Inactive: 07/16/2017 Onset: 02/27/2017 Disturbance in sleep behavior Bety Cornelius MD Inactive Inactive: 07/16/2017 Onset: 04/01/2017 Chronic obstructive lung disease Bety Cornelius MD Inactive Inactive: 07/16/2017 Onset: 02/16/2017 Diabetes mellitus Kiersten Mendieta FNP Inactive Inactive: 07/16/2017 Onset: 07/15/2017 Lump in left breast Bety Cornelius MD Inactive Inactive: 07/16/2017 Onset: 03/31/2016 Atrial flutter [place] Hunt, MSN, FINISHED GOODS INSPECTOR Inactive Inactive: 07/16/2017 Onset: 05/22/2017 Morbid obesity Mabel Nunn MD Inactive Inactive: 07/16/2017 Onset: 07/27/2012 Congestive heart failure Jose Guan M.D., [facility] Inactive Inactive: 09/06/2018 Note: diastolic 2014 Onset: 03/14/2013 Type II diabetes mellitus [place] Hunt, MSN, Inactive uncontrolled [employer]ISHED GOODS INSPECTOR Inactive: 09/06/2018 Note: -> neuropathy Onset: 04/01/2017 Chronic obstructive pulmonary disease Bety Cornelius MD Resolved with (acute) exacerbation Resolved: 07/16/2017 Onset: 12/11/2017 Cough Bety Cornelius MD Resolved Resolved: 04/16/2018 Onset: 06/03/2017 Lump in left breast Bety Cornelius MD Resolved Resolved: 04/16/2018 Family History Date Family Member(s) Observation Comments Father due to Pneumonia () Father [...] () Social History Type Date Description Comments Sex Unknown Marital Status Lives With Alone HAS DAILY HH AIDE Home Environment Lives Alone Diet Patient is on a low sodium diet Diet Patient is on a low fat diet Diet Patient is on a low sugar diet Diet Patient is on a low carb diet Occupation Stock Holder Occupation Retired Work Status Retired Hand Dominance Right-handed Tobacco Use Start: Unknown End: Quit 1 ppd 40+yrs Unknown ETOH Use Denies alcohol use Tobacco Use Start: Unknown End: Patient is a former Unknown smoker Recreational Drug Use Denies Drug Use Smoking Status Reviewed: 11/01/18 Patient is a former smoker Allergies, Adverse Reactions, Alerts Date Description Reaction Status Severity Comments 08/03/2009 Levofloxacin Active 11/21/2015 Lisinopril Active 03/31/2016 Lipitor Active 10/29/2018 Miconazole Active Medications Medication Date Status Form Strength Qnty SIG Indications Ordering Provider Probiotic 11/02/19 Active Capsules 100ca 1 ca by Mary Cornelius 19 ps mouth MD Bety once a day Spironolactone 09/24/19 Active Tablets 100mg 90tab 1/2 by I50.32 Adryan, 18 s mouth MD Bety every day Onetouch Lancets 04/03/20 Active Misc 200un check E11.621 Enma Cornelius its glucose MD Bety once a day at varying tmes Xtampza ER 04/01/20 Active C12a 27mg 30uni 1 capsule Enma Cornelius ts at MD Bety bedtime pain clinic prescribe s Face Mask With 04/01/20 Active for J44.9 Adryan Tubing 17 nebulizer MD Bety use adult size Onetouch Verio 03/18/20 Active Kit w/Device 1unit check E11.621 Adryan Flex 17 s glucose MD Bety Bloodglucose once a Monitoring day at System alternati ng times Onetouch Verio 03/18/20 Active Strips 100un Use One E11.621 Enma Cornelius its Strip To MD Bety Check Glucose Twice Daily AT Alternati ng Times Torsemide 02/07/20 Active Tablets 20mg 60tab 2 by I50.32 Hunt, 17 s mouth [place] every day Angelica , MSN, FINISHED GOODS INSPECTOR Ferrous Sulfate 12/21/19 Active Tablets 325(65Fe) 90tab 1 by D50.9 Vatra, 16 mg s mouth Herminio, every day before meal Humira Active PSKT 40mg/0.8M inject q Unknown 00 L 2 weeks Tylenol Extra Active Tablets 500mg 1-2 tabs Unknown Strength 00 by mouth every 4 hours as needed Albuterol Active Nebulizer (2.5mg/3M 75ml 1 vial in Adryan, Sulfate 00 L) 0.083% nebulizer MD Bety every 4h if needed for sob, wheezing or persisten t cough Trazodone HCL Active Tablets 50mg 180ta Take Two Adryan, 00 bs Tablets MD Bety By Mouth AT Bedtime Ventolin HFA Active Aerosol 108(90Bas take 2 Unknown 00 e) puffs mcg/Act every 6 hours as needed for shortness of breath. Lyrica Active Capsules 100mg 90cap 1 cap. by Adryan 00 s mouth MD Bety three times a day; Reference #: [id number] Daliresp Active Tablets 500mcg 90tab Take One Adryan 00 s Tablet By MD Bety Mouth Every Day Ludivina Allergy Active Tablets 60mg 1 tab by Unknown 00 mouth every day Xarelto Active Tablets 20mg 30tab Take One Hunt, 00 s Tablet By [place] Mouth Simonetta Every Day , MSN, FINISHED GOODS INSPECTOR Oseltamivir 10/19/19 Hx Capsules 75mg 10cap take 1 Adryan Phosphate 19 - s capsule MD Bety 11/02/19 by mouth 19 2x/day until gone Cephalexin 10/08/19 Hx Capsules 500mg 30cap 1 tab by Delfino.1 Adryan 19 - s mouth 3 MD Bety 11/02/19 times a 19 day Prednisone 10/08/19 Hx Tablets 50mg 3tabs 1 by [email or web address] Adryan 19 - mouth MD Bety 11/02/19 every day 19 until gone Lexapro 07/27/20 Hx Tablets 10mg 30tab 1 tab by [email or web address] Margarita 18 - s mouth MD Taiwo 10/08/19 every day 19 Levocetirizine 06/14/20 Hx Tablets 5mg 90tab Take One Adryan Dihydrochloride 18 - s Tablet By MD Bety 10/08/19 Mouth 19 Every Day Amoxicillin 06/11/20 Hx Tablets 500mg 20tab 1 tab by Adryan 18 - s mouth MD Bety 07/27/20 2x/day 18 until gone Doxycycline 06/03/20 Hx Capsules 100mg 20cap 1 by [email or web address] Clune, Monohydrate 18 - s mouth Jenniferl 06/13/20 twice a eigh, FINISHED GOODS INSPECTOR 18 day Nystatin 03/17/20 Hx Powder [id number] 60gm apply to Eladio Cornelius - t/GM affected MD Bety 10/08/19 areas up 19 to 4x/day after washing and drying well Guaifenex LA 02/24/20 Hx Tablets ER 600mg 180ta 1 by Adryan 18 - 12HR bs mouth MD Bety 10/08/19 twice a 19 day Ondansetron HCL 02/06/20 Hx Tablets 8mg 24tab one every R11.0 Anam 18 - s 8 hours Jenniferl 10/08/19 as needed eigh, FINISHED GOODS INSPECTOR 19 for nausea Levocetirizine 12/18/19 Hx Tablets 5mg 90tab 1 by Adryan Dihydrochloride 18 - s mouth MD Bety Unknown every day Doxycycline 12/05/19 Hx Capsules 100mg 20cap 1 by J18.9 Anam, Monohydrate 18 - s mouth Jenniferl 12/15/19 twice a eigh, FINISHED GOODS INSPECTOR 18 day Nystatin 11/27/19 Hx Cream [id number] 90gm apply Adryan 18 - t/GM twice a MD Bety Unknown day to affected areas Spironolactone 06/03/20 Hx Tablets 100mg 1 by [id number] Adryan 17 - mouth MD Bety 09/24/19 every day 18 Isosorbide 05/06/20 Hx Tablets ER 30mg 90tab Take One I50.32 Adryan Monoanthonytrate ER 17 - 24HR s Tablet By MD Bety Unknown Mouth Every Morning Loratadine 05/04/20 Hx Tablets 10mg 30tab take one Adryan 17 - s tablet by MD Bety Unknown mouth every day as Needed For Allergies Ludivina Allergy 04/03/20 Hx Tablets 180mg J44.1 Adryan 17 - MD Bety 04/03/20 17 Fexofenadine HCL 04/03/20 Hx Tablets 180mg 90tab 1 by J44.1 Adryan 17 - s mouth MD Bety 05/04/20 every day 17 Januvia 04/01/20 Hx Tablets 100mg 30tab take 08/20 E11.621 Enma Cornelius s tab by MD Bety 04/01/20 mouth 17 every day Januvia 04/01/20 Hx Tablets 50mg 30tab 1 by E11.621 Enma Cornelius - s mouth MD Bety 05/06/20 every day 17 at breakfast Amoxicillin/Clav 03/27/20 Hx Tablets 875-125mg 20tab one by J44.1 robyn Mendieta 17 - s mouth Jenniferl Potassium 04/06/20 twice a eigh, FINISHED GOODS INSPECTOR 17 day x 10 days Loradamed 03/27/20 Hx Tablets 10mg 90tab 1 by J44.1 Anam, 17 - s mouth Jenniferl 03/27/20 every day eigh, FINISHED GOODS INSPECTOR 17 Mucinex 03/27/20 Hx Tablets ER 600mg 60tab one tab J44.1 Anam 17 - 12HR s by mouth Jenniferl Unknown twice a eigh, FINISHED GOODS INSPECTOR day if neede Loratadine 03/27/20 Hx Capsules 10mg 30cap one po qd J44.1 Anam, 17 - s Jenniferl 04/03/20 eigh, FINISHED GOODS INSPECTOR 17 Modafinil 02/28/20 Hx Tablets 200mg 1 tab by Adryan 17 - susan Albert MD 04/01/20 17 Glipizide 02/28/20 Hx Tablets 5mg 30tab take 1 E11.621 Adryan 17 - s tablet by MD Bety 04/01/20 mouth at 17 breakfast , this replaces metformin Metolazone 01/31/20 Hx Tablets 2.5mg 15tab 1 tab by Carmelo 17 - s susan Ma MD 04/16/20 take 30 18 min prior to in the morning torsemide dosE if needed for increased swelling Amiodarone HCL 11/18/19 Hx Tablets 200mg 90tab Take One I50.32 Roge 17 - s Tablet By Jose 01/08/20 Susan Gurrola M.D., 18 Every Day FACC Metolazone 04/07/20 Hx Tablets 5mg 30tab 1 by I50.32 Marilee 16 - s mouth [place] Unknown every day Poolwheaton 1/2 hour , MSN, before FINISHED GOODS INSPECTOR the in the morning furosemid e as needed Kerlex And 4X4 03/31/20 Hx 10Eac Change S91.235S Hunt, Gauze Bandages 16 - h bandage [place] Unknown twice a etta day until , MSN, healed. [facility] Torsemide 03/27/20 Hx Tablets 20mg 120ta 2 tabs by I50.32 Hunt, 16 - bs mouth [place] 02/07/20 twice a Simonetta 17 day , MSN, FINISHED GOODS INSPECTOR Metolazone 03/27/20 Hx Tablets 5mg 30tab 1 by I50.32 Marilee 16 - s mouth [place] 04/07/20 every day Angelica 16 1/2 hour , MSN, before FINISHED GOODS INSPECTOR the in the morning torsemide Keflex 03/27/20 Hx Capsules 500mg 21cap 1 tab by L03.818 Marilee 16 - s mouth [place] Unknown three Angelica times a , MSN, day for FINISHED GOODS INSPECTOR one week Klor-Con 10 03/27/20 Hx Tablets ER 10Meq 30tab Take One I50.32 Hunt, 16 - s Tablet By [place] 11/02/19 Mouth Angelica 19 Every Day , MSN, FINISHED GOODS INSPECTOR Omeprazole 12/21/19 Hx Capsules 10mg [address], 12/21/19 every day MD Truong Omeprazole 12/21/19 Hx Capsules 20mg 90cap 1 by Alexi Hinton - DR jasiel Durham, Unknown every day Trazodone HCL 04/03/20 Hx Tablets 50mg 30tab 1 by Roge 15 - s Jose davis Unknown every Ugo Gurrola, night at [facility] bedtime prn Hydrochlorothiaz 03/05/20 Hx Tablets 25mg 30tab Take One Roge tripathi 15 - s Tablet By Jose 11/21/19 Susan Gurrola M.D., 16 Every Day [facility] Furosemide 01/11/20 Hx Tablets 40mg 180ta 1 po bid 428.0 Roge Bello - bs , Jose Gurrola M.D., [facility] Hydrochlorothiaz 01/11/20 Hx Tablets 25mg 30tab Take One Roge bhumi 14 - s Tablet By , Jose Sepulveda Mouth Ugo Gurrola, Every Day [facility] Hydrochlorothiaz 12/21/19 Hx Tablets 50mg 30tab 1 po qd Roge bhumi 14 - s Jose M.D., [facility] Metolazone 12/13/19 Hx Tablets 5mg 30tab 1 po qd Roge 14 - s , Jose 12/21/19 Ugo Gurrola, 14 [facility] Furosemide 11/05/19 Hx Tablets 40mg 60tab 2 po qday 428.0 Roge 14 - s , Jose 01/11/20 Ugo Gurrola, 14 [facility] Metolazone 11/05/19 Hx Tablets 2.5mg 30tab po qd 20 Roge 14 - s min , Jose 12/13/19 before Ugo Gurrola, 14 lasix in [facility] am for 3 days (take one today) Furosemide 08/02/20 Hx Tablets 20mg 2 po qd 428.0 Roge 13 - , Jose 11/05/19 Ugo Gurrola, 14 [facility] Xarelto 10/22/19 Hx Tablets 15mg 90tab 1 by Marilee, 13 - s mouth [place] Unknown every day ERNESTINE Dominguez, FINISHED GOODS INSPECTOR Furosemide 09/17/19 Hx Tablets 80mg 1 by 428.0 Roge 13 - mouth , Jose Unknown every day Donita Gurrola., [facility] Metolazone 09/17/19 Hx Tablets 5mg 90tab 1 by Marilee, 13 - s mouth [place] Unknown every [facility] other day , ERNESTINE, FINISHED GOODS INSPECTOR Furosemide 08/20/19 Hx Tablets 80mg 60tab 1 tab by 428.0 Marilee 13 - s mouth [place] 09/17/19 twice a Angelica 13 day , MSN, FINISHED GOODS INSPECTOR Xarelto 07/28/20 Hx Tablets 20mg 30tab 1 by Marilee 12 - s mouth [place] 10/22/19 every day Angelica 13 , MSN, FINISHED GOODS INSPECTOR Metolazone 07/27/20 Hx Tablets 5mg 30tab 1 po qd Roge 12 - s 20 min , Jose 09/17/19 before Ugo Gurrola, 13 lasix [facility] Pradaxa 07/27/20 Hx Capsules 150mg 60cap 1 by Roge 12 - s mouth , Jose 07/28/20 twice a MUgo Nieto, 12 day [facility] Losartan 11/12/19 Hx Tablets 50mg 14tab 1 po qd 401.1 Marilee, Potassium 11 - s [place] Unknown ERNESTINE Dominguez, FINISHED GOODS INSPECTOR Metoprolol 10/30/19 Hx Tablets 25mg 60tab 1 po bid 401.1 Marilee, Tartrate 11 - s [place] 03/17/20 Angelica Jacobs , ERNESTINE, FINISHED GOODS INSPECTOR 794.31 Lisinopril 10/29/2010 - Hx Tablets 10mg 30tabs 1 po qd 401.1 Hunt, [place] 11/11/2010 ERNESTINE Dominguez, FINISHED GOODS INSPECTOR Albuterol - Hx (2.5mg Malakar, Sulfate Unknown /3ML) MD Virgil 0.083% Multivitamins - Hx Tablets 1 po qd Hunt, [place] Unknown Angelica MSN, FINISHED GOODS INSPECTOR Proventil HFA - Hx Aerosol 108(90 2 puffs p2h Hunt, [place] 11/21/2015 Base) prn Angelica, mcg/ac MSN, FINISHED GOODS INSPECTOR Lortab 7.5 - Hx Tablets 7.5-50 1 tab q6h Hunt, [place] Unknown 0mg prn ERNESTINE Dominguez, FINISHED GOODS INSPECTOR Glimepiride - Hx Tablets 4mg 2 po qam Unknown Unknown Zocor - Hx Tablets 20mg 1 po qpm Unknown Unknown Lopressor - Hx Tablets 50mg 60tabs po bid Hunt, [place] Unknown ERNESTINE Dominguez, FINISHED GOODS INSPECTOR Duoneb - Hx Solution 0.5-2. qid Hunt, [place] Unknown 5(3)mg Angelica, /3ML MSN, FINISHED GOODS INSPECTOR Potassium - Hx Solution 40Meq/ tid Hunt, [place] Chloride Unknown 100ML ERNESTINE Dominguez, FINISHED GOODS INSPECTOR Furosemide - Hx Tablets 80mg 60tabs 4 tabs qam, Hunt, [place] Unknown 3 tabs qpm ERNESTINE Dominguez, FINISHED GOODS INSPECTOR Meclizine HCL - Hx Tablets 12.5mg 1-2 tabs po Unknown Unknown q4h prn dizziness Januvia - Hx Tablets 50mg 1 po bid Marilee, [place] ERNESTINE Louis, FINISHED GOODS INSPECTOR Colace - Hx Capsules 100mg 1 po bid Hunt, [place] ERNESTINE Louis, FINISHED GOODS INSPECTOR Medrol - Hx Tablets 8mg po qd Hunt, [place] Unknown ERNESTINE Dominguez, FINISHED GOODS INSPECTOR Methotrexate - Hx Tablets 2.5mg po qweek Hunt, [place] ERNESTINE Louis, FINISHED GOODS INSPECTOR Ludivina - Hx Tablets 60mg 30tabs 1 po qd Hunt, [place] Unknown Angelica, MSN, FINISHED GOODS INSPECTOR Prozac - Hx Capsules 20mg 1 po qd Hunt, [place] Unknown Angelica, MSN, FINISHED GOODS INSPECTOR Provigil - Hx Tablets 200mg po qd Hunt, [place] Unknown Angelica, MSN, FINISHED GOODS INSPECTOR Nexium - Hx Capsules DR 40mg 60caps po bid Hunt, [place] Unknown Angelica, MSN, FINISHED GOODS INSPECTOR Metformin HCL - Hx Tablets 1000mg 1 po bid Unknown Unknown Simvastatin - Hx Tablets 20mg 30tabs 1 po qpm Unknown Unknown Advair Diskus - Hx Aerosol 250-50 1 puff bid Unknown Unknown mcg/Do se Metoprolol - Hx Tablets 50mg 60tabs 1 po bid 401.1 Unknown Tartrate Unknown 794.31 Hydrocodone/Acetaminophen - Hx Tablets 5-325mg 1 tab po Unknown Unknown q6h prn Zolpidem Tartrate - Hx Tablets 10mg 1 po qhs Unknown 11/21/2015 Fexofenadine HCL - Hx Tablets 180mg 1 po qhs Unknown Unknown Methylprednisolone - Hx Tablets 4mg 2 po qam Unknown Unknown Prednisone - Hx Tablets 20mg po qd Unknown Unknown Fluoxetine - Hx Capsules 25mg po qd Unknown Unknown Aspirin Ec Low Dose - Hx Tablets DR 81mg 1 tab by Unknown 05/25/2013 mouth every day with food Claritin - Hx Capsules 10mg prn Unknown Unknown Methotrexate - Hx Tablets 2.5mg as directed Unknown Unknown Lasix - Hx Tablets 80mg 1 po qd 42 Unknown 08/20/2012 8. 0 Furosemide - Hx Tablets 20mg 27 1 tab po qd 42 Hunt, 08/02/2013 0t 8. [place] ab 0 Angelica weathers , MSN, FINISHED GOODS INSPECTOR Lantus Solostar - Hx Solution 100Unit/M as directed Unknown 11/21/2015 L Aspir-81 - Hx Tablets DR 81mg 60 1 po qd Unknown Unknown ta bs Glipizide - Hx Tablets 5mg 1 po bid Unknown Unknown Januvia - Hx Tablets 100mg 30 1 po qd Unknown 11/21/2015 ta bs Prozac - Hx Capsules 20mg 30 1 po qd Unknown Unknown ca ps Potassium Chloride CR - Hx Tablets ER 20Meq 60 2 tab by Roge Unknown ta mouth twice , Jose bs a day Ugo Gurrola, FACC Modafinil - Hx Tablets 200mg po qd Unknown Unknown Lyrica - Hx Capsules 200mg 60 1 by mouth Derick Cornelius ca twice a day MD amena Albert has been writing it Nyamyc - Hx Powder [id number] 1u apply to Unknown 11/21/2015 t/GM ni [...] mouth Unknown 11/21/2015 every day Magnesium Oxide - Hx Tablets 400(240Mg take one Unknown Unknown ) mg tablet daily Simvastatin - Hx Tablets 40mg 1 by mouth Unknown 11/21/2015 every day Omeprazole - Hx Capsules 20mg 90 2 po bid Unknown 12/21/2015 DR alexander ps Symbicort - Hx Aerosol 160-4.5mc 2 puff Unknown 11/21/2015 g/Act twice a day Colace - Hx Capsules 100mg 2 by mouth Unknown Unknown every night Fexofenadine HCL - Hx Tablets 180mg 1 by mouth Unknown 02/27/2017 every day Bengay - Hx Patches 1.4% Unknown Unknown Ipratropium - Hx Solution 0.5-2.5(3 54 one vial in [place], [place]/Albuterol Sulfate 04/16/2018 )mg/3ML 0m nebulizer Jenniferl l twice daily eigh, FINISHED GOODS INSPECTOR Oxycontin - Hx Tab ER 12H 5mg po prn Unknown Unknown Abuse-Det Fluoxetine HCL - Hx Capsules 20mg 1 by mouth Unknown Unknown daily but taking a/d as tapering dosing Oxycodone HCL - Hx Tablets 10mg 1 every 6 h Unknown Unknown by mouth as needed pain Aldactone - Hx Tablets 50mg 1 by mouth Unknown Unknown every day Biotene Dry Mouth - Hx Liquid swish and Unknown Unknown spit out four times a day as needed dry mouth Hydrogel - Hx Gel as directed Unknown 04/01/2017 Potassium Chloride ER - Hx Capsules 10Meq 1 by mouth Unknown Unknown ER every day Miralax - Hx Packet [id number] 17g by Unknown 02/27/2017 mouth twice a day as needed constipatio n. Vitamin C - Hx Chewtabs 500mg 1 po qd Unknown Unknown Furosemide - Hx Tablets 20mg 1 by mouth Unknown Unknown every day Cephalexin - Hx Capsules 500mg Ochoa, 04/16/2018 STEPHANIE Samson Medications Administered in Office Medication Date Status Form Strength Qnty SIG Indications Ordering Provider Methylprednisolone 04/21 Administered Injection Alphonse Dejah (Depomedrol) 80mg MD injection Methylprednisolone 12/30 Administered Injection Alphonse Dejah (Depomedrol) 80mg MD injection Methylprednisolone 10/01 Administered Injection Lloyd JO-ANN Gracia (Depomedrol) 80mg injection Immunizations CPT Code Status Date Vaccine Lot # [id number] Given 07/27/2018 Pneumococcal Conjugate Vaccine 13 Valent For [id number] Intramuscular Use [id number] Given 07/27/2018 Influenza High Dose [id number] Vital Signs Date Vital Result Comment 11/01/2018 9:34am BP Systolic 136 mmHg BP Diastolic 76 mmHg Body Temperature 96.8 F Heart Rate 62 /min Respiratory Rate 20 /min Weight 320.00 lb in hospital O2 % BldC Oximetry 91 % 10/08/2018 9:19am BP Systolic 113 mmHg BP Diastolic 56 mmHg Body Temperature 96.3 F Heart Rate 60 /min Respiratory Rate 20 /min O2 % BldC Oximetry 88 % 07/27/2018 2:48pm BP Systolic 112 mmHg BP Diastolic 66 mmHg Heart Rate 60 /min Respiratory Rate 20 /min O2 % BldC Oximetry 93 % 06/03/2018 11:28am BP Systolic Sitting Left Arm 138 mmHg BP Diastolic Sitting Left Arm 76 mmHg Heart Rate 64 /min Respiratory Rate 20 /min O2 % BldC Oximetry 95 % 05/27/2018 10:42am BP Systolic Sitting Left Arm 120 mmHg BP Diastolic Sitting Left Arm 80 mmHg Heart Rate 60 /min Respiratory Rate 18 /min O2 % BldC Oximetry 88 % 04/21/2018 1:41pm BP Systolic 111 mmHg BP Diastolic 64 mmHg Body Temperature 97.8 F Heart Rate 112 /min O2 % BldC Oximetry 90 % Pain Level 9 04/16/2018 1:04pm BP Systolic 125 mmHg left wrist BP Diastolic 66 mmHg left wrist Body Temperature 97.2 F Heart Rate 64 /min Respiratory Rate 20 /min O2 % BldC Oximetry 97 % 01/07/2018 1:51pm BP Systolic Sitting Right Arm 114 mmHg BP Diastolic Sitting Right Arm 68 mmHg Heart Rate 60 /min Respiratory Rate 18 /min 12/30/2017 2:17pm BP Systolic 145 mmHg BP Diastolic 72 mmHg Body Temperature 98.1 F 12/11/2017 11:33am BP Systolic 128 mmHg BP Diastolic 80 mmHg BP Systolic Sitting Right Arm 103 mmHg BP Diastolic Sitting Right Arm 58 mmHg BP Systolic Sitting Left Arm 108 mmHg BP Diastolic Sitting Left Arm 58 mmHg Body Temperature 96.8 F Heart Rate 60 /min Respiratory Rate 18 /min O2 % BldC Oximetry 96 % 12/04/2017 1:48pm BP Systolic Sitting Left Arm 122 mmHg BP Diastolic Sitting Left Arm 70 mmHg Body Temperature 97.8 F Heart Rate 62 /min Respiratory Rate 20 /min O2 % BldC Oximetry 94 % 12/02/2017 12:55pm BP Systolic Sitting Right Arm 89 mmHg Pt has been running low-[facility] aware BP Diastolic Sitting Right Arm 58 mmHg Pt has been running low-[facility] aware Body Temperature 97.7 F Heart Rate 60 /min Respiratory Rate 16 /min Height 70 inches 5'10" [place] body weight in kilograms 75 kg 10/01/2017 11:54am BP Systolic Sitting Left Arm 87 mmHg BP Diastolic Sitting Left Arm 58 mmHg Heart Rate 59 /min Height 70 inches 5'10" Weight 260.00 lb per pt BMI (Body Mass Index) 37.3 kg/m2 BSA (Body Surface Area) 2.33 m2 [place] body weight in kilograms 75 kg 09/24/2017 1:50pm BP Systolic Sitting Left Arm 104 mmHg Repeat 88/55 BP Diastolic Sitting Left Arm 62 mmHg Repeat 88/55 Heart Rate 60 /min Respiratory Rate 16 /min Weight 260.00 lb 09/16/2017 3:00pm BP Systolic 106 mmHg BP Diastolic 64 mmHg Body Temperature 97.8 F Heart Rate 57 /min Weight 260.00 lb O2 % BldC Oximetry 92 % 09/09/2017 10:46am BP Systolic Sitting Left Arm 98 mmHg BP Diastolic Sitting Left Arm 62 mmHg Body Temperature 97.2 F Heart Rate 60 /min 08/05/2017 10:48am BP Systolic Sitting Left Arm 110 mmHg BP Diastolic Sitting Left Arm 70 mmHg Body Temperature 97.6 F Heart Rate 60 /min 07/15/2017 3:27pm BP Systolic Sitting Right Arm 118 mmHg BP Diastolic Sitting Right Arm 58 mmHg Heart Rate 59 /min Height 70 inches 5'10" per patient Weight 300.00 lb per patient BMI (Body Mass Index) 43.0 kg/m2 BSA (Body Surface Area) 2.48 m2 [place] body weight in kilograms 75 kg O2 % BldC Oximetry 100 % 06/24/2017 2:18pm BP Systolic Sitting Left Arm 140 mmHg BP Diastolic Sitting Left Arm 75 mmHg Heart Rate 68 /min Respiratory Rate 20 /min Height 70 inches 5'10" per patient [place] body weight in kilograms 75 kg 06/03/2017 3:34pm BP Systolic Sitting Left Arm 134 mmHg BP Diastolic Sitting Left Arm 78 mmHg Heart Rate 60 /min Height 70 inches 5'10" per patient [place] body weight in kilograms 75 kg 05/22/2017 10:43am BP Systolic Sitting Right Arm 96 mmHg BP Diastolic Sitting Right Arm 51 mmHg Body Temperature 97.0 F Heart Rate 60 /min Height 70 inches 5'10" per patient Weight 280.00 lb per patient BMI (Body Mass Index) 40.2 kg/m2 BSA (Body Surface Area) 2.41 m2 [place] body weight in kilograms 75 kg 05/06/2017 2:44pm BP Systolic 122 mmHg BP Diastolic 68 mmHg 04/01/2017 3:09pm BP Systolic 114 mmHg BP Diastolic 66 mmHg Heart Rate 60 /min Weight 290.00 lb 7 Weeks Ago 03/27/2017 11:36am BP Systolic 92 mmHg BP Diastolic 60 mmHg Body Temperature 98.4 F Heart Rate 76 /min O2 % BldC Oximetry 85 % 03/19/2017 3:27pm BP Systolic Sitting Left Arm 124 mmHg BP Diastolic Sitting Left Arm 76 mmHg Heart Rate 75 /min Respiratory Rate 16 /min Height 70 inches 5'10" [place] body weight in kilograms 75 kg 02/27/2017 1:43pm BP Systolic 112 mmHg BP Diastolic 59 mmHg Heart Rate 60 /min Height 70 inches 5'10" [place] body weight in kilograms 75 kg 02/16/2017 2:51pm BP Systolic 128 mmHg BP Diastolic 74 mmHg Height 70 inches 5'10" Weight 290.00 lb per patient BMI (Body Mass Index) 41.6 kg/m2 BSA (Body Surface Area) 2.44 m2 [place] body weight in kilograms 75 kg 02/06/2017 11:05am BP Systolic Sitting Left Arm 128 mmHg BP Diastolic Sitting Left Arm 78 mmHg Heart Rate 60 /min Respiratory Rate 16 /min 12/08/2016 12:49pm BP Systolic Sitting Left Arm 122 mmHg BP Diastolic Sitting Left Arm 72 mmHg Heart Rate 60 /min Respiratory Rate 16 /min 11/17/2016 2:10pm BP Systolic Sitting Left Arm 100 mmHg BP Diastolic Sitting Left Arm 62 mmHg Heart Rate 60 /min Respiratory Rate 18 /min 09/08/2016 2:21pm BP Systolic Sitting Left Arm 132 mmHg BP Diastolic Sitting Left Arm 78 mmHg Heart Rate 60 /min Respiratory Rate 18 /min 05/12/2016 1:12pm BP Systolic Sitting Right Arm 118 mmHg BP Diastolic Sitting Right Arm 70 mmHg Heart Rate 62 /min Respiratory Rate 18 /min Height 70 inches 5'10" Weight 260.00 lb BMI (Body Mass Index) 37.3 kg/m2 BSA (Body Surface Area) 2.33 m2 04/24/2016 1:52pm BP Systolic Sitting Left Arm 140 mmHg BP Diastolic Sitting Left Arm 78 mmHg Heart Rate 56 /min Respiratory Rate 16 /min Height 70 inches 5'10" Weight 260.00 lb As per pt,unable to stand BMI (Body Mass Index) 37.3 kg/m2 BSA (Body Surface Area) 2.33 m2 04/07/2016 1:28pm BP Systolic Sitting Left Arm 122 mmHg BP Diastolic Sitting Left Arm 60 mmHg Heart Rate 72 /min Height 70 inches 5'10" 03/31/2016 11:15am BP Systolic Sitting Left Arm 114 mmHg BP Diastolic Sitting Left Arm 62 mmHg Heart Rate 68 /min Respiratory Rate 18 /min Height 70 inches 5'10" Weight 270.00 lb BMI (Body Mass Index) 38.7 kg/m2 BSA (Body Surface Area) 2.37 m2 03/27/2016 11:13am BP Systolic Sitting Right Arm 108 mmHg BP Diastolic Sitting Right Arm 62 mmHg Heart Rate 60 /min Respiratory Rate 16 /min Height 70 inches 5'10" Weight 270.00 lb per pt BMI (Body Mass Index) 38.7 kg/m2 BSA (Body Surface Area) 2.37 m2 12/21/2015 2:20pm BP Systolic 114 mmHg BP Diastolic 68 mmHg Heart Rate 55 /min Respiratory Rate 18 /min Height 70 inches 5'10" Weight 266.00 lb BMI (Body Mass Index) 38.2 kg/m2 BSA (Body Surface Area) 2.36 m2 O2 % BldC Oximetry 95 % Ra 11/21/2015 9:49am BP Systolic Sitting Right Arm 106 mmHg BP Diastolic Sitting Right Arm 70 mmHg Heart Rate 75 /min Height 70 inches 5'10" Weight 292.00 lb BMI (Body Mass Index) 41.9 kg/m2 BSA (Body Surface Area) 2.45 m2 04/03/2015 1:42pm BP Systolic Sitting Left Arm 96 mmHg BP Diastolic Sitting Left Arm 50 mmHg Heart Rate 58 /min Respiratory Rate 18 /min Height 70 inches 5'10" 04/24/2014 4:15pm Height 70 inches 5'10" Weight 310.00 lb BMI (Body Mass Index) 44.5 kg/m2 BSA (Body Surface Area) 2.51 m2 01/10/2014 11:16am BP Systolic Sitting Right Arm 120 mmHg BP Diastolic Sitting Right Arm 68 mmHg Heart Rate 60 /min Respiratory Rate 18 /min Height 60 inches 5'0" Weight 310.00 lb Est. per pt BMI (Body Mass Index) 60.5 kg/m2 BSA (Body Surface Area) 2.25 m2 11/10/2013 1:04pm BP Systolic Sitting Left Arm 102 mmHg BP Diastolic Sitting Left Arm 64 mmHg Heart Rate 64 /min Respiratory Rate 20 /min Height 60 inches 5'0" Weight 335.00 lb per patient BMI (Body Mass Index) 65.4 kg/m2 BSA (Body Surface Area) 2.32 m2 08/02/2013 4:09pm BP Systolic Sitting Left Arm 144 mmHg BP Diastolic Sitting Left Arm 70 mmHg Heart Rate 68 /min Respiratory Rate 18 /min Height 60 inches 5'0" 03/14/2013 3:19pm BP Systolic Sitting Right Arm 122 mmHg BP Diastolic Sitting Right Arm 64 mmHg Heart Rate 66 /min Respiratory Rate 18 /min Height 60 inches 5'0" 09/02/2012 2:44pm BP Systolic Sitting Left Arm 122 mmHg BP Diastolic Sitting Left Arm 70 mmHg Heart Rate 70 /min Respiratory Rate 20 /min Height 60 inches 5'0" Weight 390.00 lb per patient BMI (Body Mass Index) 76.2 kg/m2 08/20/2012 3:02pm BP Systolic Sitting Right Arm 104 mmHg BP Diastolic Sitting Right Arm 70 mmHg Heart Rate 56 /min Irregular Respiratory Rate 20 /min Height 70 inches 5'10" Weight 400.00 lb estimated BMI (Body Mass Index) 57.4 kg/m2 07/27/2012 2:28pm BP Systolic Sitting Right Arm 116 mmHg BP Diastolic Sitting Right Arm 80 mmHg Heart Rate 60 /min Regular Respiratory Rate 20 /min Height 70 inches 5'10" Weight 395.00 lb BMI (Body Mass Index) 56.7 kg/m2 10/29/2010 2:47pm BP Systolic Sitting Right Arm 130 mmHg BP Diastolic Sitting Right Arm 90 mmHg Heart Rate 53 /min regular Respiratory Rate 20 /min Height 70 inches 5'10" Weight 380.00 lb BMI (Body Mass Index) 54.5 kg/m2 11/02/2009 2:02pm Heart Rate 82 /min Respiratory Rate 20 /min Weight 360.00 lb 07/20/2008 1:41pm Height 70 inches 5'10" Weight 350.00 lb estimated-in wheelchair Results Test Date Facility Test Result H/L Range Note Basic Metabolic 10/29/2018 [facility] Glucose 213 mg/dL High 74-[address] [place] [address] [phone] BUN 43 mg/dL High 7-18 Creatinine 1.2 mg/dL N 0.6-1.3 Glom Filtration Rate, Estimate >60 mL/min >60 If >60 mL/min >60 2 BUN/Creat 35.8 ratio Sodium 138 mmol/L N 136-145 Potassium 3.9 mmol/L 3.5-5.1 Chloride 99 mmol/L N 98-107 Carbon Dioxide 33 mmol/L High 21-32 Anion Gap 6 mEq/L Low 8-16 Calcium 8.5 mg/dL N 8.5-10.1 Basic Metabolic Panel 10/26/2018 [facility] Glucose 275 mg/dL High 74-106 3 [address], [place] [id number] [phone] BUN 56 mg/dL High 7-18 Creatinine 1.4 mg/dL High 0.6-1.3 Glom Filtration Rate, Estimate 52 mL/min >60 If >60 mL/min >60 4 BUN/Creat 40.0 ratio Sodium 134 mmol/L Low 136-145 Potassium 5.4 mmol/L High 3.5-5.1 Chloride 101 mmol/L N 98-107 Carbon Dioxide 29 mmol/L N 21-32 Anion Gap 4 mEq/L Low 8-16 Calcium 8.5 mg/dL N 8.5-10.1 Aot Request 10/25/2018 [facility] Aot Request Test(s) added 5 [address] [place] [address] [phone] Tests to be added: crp,pro bnp Basic Metabolic Panel 10/25/2018 [facility] Glucose 249 mg/dL High 74-106 [address], [place] [id number] [phone] BUN 47 mg/dL High 7-18 Creatinine 1.4 mg/dL High 0.6-1.3 Glom Filtration Rate, Estimate 52 mL/min >60 If >60 mL/min >60 6 BUN/Creat 33.5 ratio Sodium 133 mmol/L Low 136-145 Potassium 5.7 mmol/L High 3.5-5.1 Chloride 102 mmol/L N 98-107 Carbon Dioxide 25 mmol/L N 21-32 Anion Gap 6 mEq/L Low 8-16 Calcium 8.9 mg/dL N 8.5-10.1 Laboratory test 10/25/2018 [facility] NT-proBNP 2649.0 pg/mL High <450 finding [address] [place] [address] [phone] C-Reactive Protein,Quant 13.9 mg/L High <3.0 CBC 10/24/2018 [facility] White Blood Count 5.3 K/uL N 3.4-10.5 [address] [place] [address] [phone] Red Blood Count 4.02 M/uL Low 4.20-5.80 Hemoglobin 12.2 gm/dL Low 12.8-17.0 Hematocrit 39.4 % N 38.0-48.0 Mean Cell Volume 98.0 fl High 80.0-96.0 Mean Corpuscular HGB 30.3 pg N 27.0-33.0 Mean Corpuscular HGB Conc 31.0 g/dL Low 31.7-36.0 Platelet Count 147 K/uL Low 155-360 Red Cell Distri Width %CV 14.1 % N 11.6-15.8 Mean Platelet Volume 10.1 fL N 6.6-10.6 Basic Metabolic Panel 10/24/2018 [facility] Glucose 110 mg/dL High 74-106 [address] [place] [address] [phone] BUN 44 mg/dL High 7-18 Creatinine 1.4 mg/dL High 0.6-1.3 Glom Filtration Rate, Estimate 52 mL/min >60 If >60 mL/min >60 7 BUN/Creat 31.4 ratio Sodium 137 mmol/L N 136-145 Potassium 5.2 mmol/L High 3.5-5.1 Chloride 105 mmol/L N 98-107 Carbon Dioxide 26 mmol/L N 21-32 Anion Gap 6 mEq/L Low 8-16 Calcium 8.4 mg/dL Low 8.5-10.1 CBC 10/23/2018 [facility] White Blood Count 4.9 K/uL N 3.4-10.5 [address] [place] [address] [phone] Red Blood Count 4.10 M/uL Low 4.20-5.80 Hemoglobin 12.3 gm/dL Low 12.8-17.0 Hematocrit 39.9 % N 38.0-48.0 Mean Cell Volume 97.3 fl High 80.0-96.0 Mean Corpuscular HGB 30.0 pg N 27.0-33.0 Mean Corpuscular HGB Conc 30.8 g/dL Low 31.7-36.0 Platelet Count 137 K/uL Low 155-360 Red Cell Distri Width %CV 14.5 % N 11.6-15.8 Mean Platelet Volume 11.0 fL High 6.6-10.6 Basic Metabolic Panel 10/23/2018 [facility] Glucose 116 mg/dL High 74-106 [address] [place] [address] [phone] BUN 39 mg/dL High 7-18 Creatinine 1.4 mg/dL High 0.6-1.3 Glom Filtration Rate, Estimate 52 mL/min >60 If >60 mL/min >60 8 BUN/Creat 27.8 ratio Sodium 138 mmol/L N 136-145 Potassium 4.9 mmol/L N 3.5-5.1 Chloride 107 mmol/L N 98-107 Carbon Dioxide 27 mmol/L N 21-32 Anion Gap 4 mEq/L Low 8-16 Calcium 8.6 mg/dL N 8.5-10.1 Basic Metabolic Panel 10/22/2018 [facility] Glucose 90 mg/dL N 74-106 [address] [place] [address] [phone] BUN 33 mg/dL High 7-18 Creatinine 1.5 mg/dL High 0.6-1.3 Glom Filtration Rate, Estimate 48 mL/min >60 If 58 mL/min >60 9 BUN/Creat 22.0 ratio Sodium 137 mmol/L N 136-145 Potassium 4.7 mmol/L N 3.5-5.1 Chloride 104 mmol/L N 98-107 Carbon Dioxide 26 mmol/L N 21-32 Anion Gap 7 mEq/L Low 8-16 Calcium 8.5 mg/dL N 8.5-10.1 CBC 10/22/2018 [facility] White Blood Count 5.6 K/uL N 3.4-10.5 [address] [place] [address] [phone] Red Blood Count 4.24 M/uL N 4.20-5.80 Hemoglobin 12.9 gm/dL N 12.8-17.0 Hematocrit 41.0 % N 38.0-48.0 Mean Cell Volume 96.7 fl High 80.0-96.0 Mean Corpuscular HGB 30.4 pg N 27.0-33.0 Mean Corpuscular HGB Conc 31.5 g/dL Low 31.7-36.0 Platelet Count 146 K/uL Low 155-360 Red Cell Distri Width %CV 14.4 % N 11.6-15.8 Mean Platelet Volume 10.4 fL N 6.6-10.6 Arterial Blood 10/22/2018 [facility] Arterial Blood 7.30 Low 7.35-7.[address] [place] [place] [address] [phone] Arterial Blood Gas Pco2 56 mmHg High 35-45 Arterial Blood Gas Po2 56 mmHg Low 80-105 ABG Hco3 27 mEq/L High 22-26 ABG Base Excess 0 mEq/L N -2-2 ABG O2 Saturation 88 % Low 90-99 Allens Test Performed? YES Arterial Blood Gas Type ROOM AIR Arterial Blood Gas Fio2 21 % N 20-101 Arterial Blood Gas Site R.[email or web address]. Respiratory Culture 10/22/2018 [facility] Gram Stain <10 SQUAMOUS EPI 10 W/Gram St [address] <SEE NOTE> [place] [address] [phone] Gram Stain >25 WBC/LPF Gram Stain FEW GRAM POSITIV <SEE NOTE> 11 Respiratory Culture RESPIRATORY CHANDLER <SEE NOTE> 12 Glycohemoglobin 10/20/2018 [facility] Glycohemoglobin 6.5 % High 4.2-6.[address] (A1c) [place] [address] [phone] eAG 140 mg/dL Blood Culture 10/20/2018 [facility] Blood Culture NO GROWTH: FINAL [address] Aerobic <SEE NOTE> [place] [address] [phone] Blood Culture Anaerobic NO GROWTH: FINAL <SEE NOTE> 15 Laboratory 10/19/2018 [facility] Legionella Negative Negative 16, 17 test finding [address] [place] [address] Antigen [phone] Basic 10/08/2018 [facility] Glucose 102 mg/dL N 74-106 [address] Panel [place], [place] [id number] [phone] BUN 47 mg/dL High 7-18 Creatinine 1.4 mg/dL High 0.6-1.3 Glom Filtration Rate, Estimate 52 mL/min >60 If >60 mL/min >60 19 BUN/Creat 33.5 ratio Sodium 138 mmol/L N 136-145 Potassium 4.9 mmol/L N 3.5-5.1 Chloride 101 mmol/L N 98-107 Carbon Dioxide 34 mmol/L High 21-32 Anion Gap 3 mEq/L Low 8-16 Calcium 8.7 mg/dL N 8.5-10.1 Glycohemoglobin A1c 10/08/2018 [facility] Glycohemoglobin 6.1 % N 4.2-6.[address] (A1c) [place] [address] [phone] eAG 128 mg/dL LDL Cholesterol Profile 10/08/2018 [facility] Cholesterol 116 mg/dL <[address] [place] [address] [phone] Triglycerides 37 mg/dL <150 22 HDL Cholesterol 51 mg/dL >40 23 LDL-Cholesterol 58 mg/dL < 100 24 Laboratory 10/08/2018 [facility] Vitamin 43.3 ng/mL 30.0-100.0 25 test finding [address] D,25-Hydroxy [place], [place] [id number] [phone] Urine Dipstick 06/03/2018 [facility] Ua Color yellow Yellow Ua Clarity clear Clear Ua Leuko negative Negative Ua Nitrite negative Negative Ua Urobilinogen 0.2 0.2 - 1.0 E.U./dL Ua Protein 100 mg/dl High Negative Ua PH 8.5 High 6.5-7.5 Ua Blood negative Negative Ua Specific [place] 1.005 Low 1.010-1.030 Ua Ketones 40 mg/dl High Negative Ua Bilirubin negative Negative Ua Glucose negative Negative Urine Culture 06/03/[address] [facility] [address] Urine Culture PROTEUS Abnormal [address] [place] <[place] [address] NOTE> [phone] Quantity > 100,000 CFU/mL 27 Urine Culture MIXED URETHRAL F <SEE NOTE> 28 Quantity 10,000 - 50,000 <SEE NOTE> 29 Proteus Mirabilis 06/03/[address] [facility] [address] Nitrofurantoin [address] [place] [id number] [phone] Trimethoprim/Sulfamethoxazole >=320 R Ampicillin <=2 S Cefazolin 8 S Ampicillin/Sulbactam <=2 S Ciprofloxacin >=4 R Piperacillin/Tazobactam <=4 S Ceftazidime <=1 S Ceftriaxone <=1 S Cefepime <=1 S Levofloxacin 4 I Gentamicin <=1 S Tobramycin <=1 S Eosinophil/leuk NFr 06/02/2018 N2N/CCD Import Eosinophil/leuk NFr 4.3 0.0-6.6 Bld Auto Bld Auto Globulin Ser 06/02/2018 N2N/CCD Import Globulin Ser 4.4 High 1.9-4.3 Calc-mCnc Calc-mCnc Lymphocytes/leuk NFr 06/02/2018 N2N/CCD Import Lymphocytes/leuk 16.4 Low 20.0-42.0 Bld Auto NFr Bld Auto Monocytes/leuk NFr 06/02/2018 N2N/CCD Import Monocytes/leuk NFr 14.6 High 0.0-10.0 Bld Auto Bld Auto Neutrophils # Bld 06/02/2018 N2N/CCD Import Neutrophils # Bld 3.75 1.8- 7.0 Auto Auto Neutrophils/leuk NFr 06/02/2018 N2N/CCD Import Neutrophils/leuk 64.2 33.0-73.0 Bld Auto NFr Bld Auto Potassium SerPl-sCnc 06/02/2018 N2N/CCD Import Potassium 4.1 3.5-5.1 SerPl-sCnc RDW RBC Auto 06/02/2018 N2N/CCD Import RDW RBC Auto 50.3 36-51 RDW RBC Auto-Rto 06/02/2018 N2N/CCD Import RDW RBC Auto-Rto 14.7 11.6- 15.8 Serum carbon dioxide 06/02/2018 N2N/CCD Import Serum carbon 30 21-32 measurement dioxide measurement Serum or plasma 06/02/2018 N2N/CCD Import Serum or plasma 3.1 Low 3.4- 5.0 albumin measurement albumin measurement (mass/volume) (mass/volume) Serum or plasma 06/02/2018 N2N/CCD Import Serum or plasma 93 45-117 alkaline phosphatase alkaline measurement ( phosphatase measurement (enzymatic activity/volume) Serum or plasma 06/02/2018 N2N/CCD Import Serum or plasma 15 15-37 aspartate aspartate aminotransferase aminotransferase measure measurement (enzymatic activity/volume) Serum or plasma 06/02/2018 N2N/CCD Import Serum or plasma 8.6 8.5-10.1 calcium measurement calcium measurement (mass/volume) (mass/volume) Serum or plasma 06/02/2018 N2N/CCD Import Serum or plasma 42 39-308 creatine kinase creatine kinase measurement (enzym measurement (enzymatic activity/volume) Serum or plasma 06/02/2018 N2N/CCD Import Serum or plasma 1.2 0.6-1.3 creatinine creatinine measurement measurement (mass/volum (mass/volume) Serum or plasma 06/02/2018 N2N/CCD Import Serum or plasma 114 High 74- 106 glucose measurement glucose measurement (mass/volume) (mass/volume) Serum or plasma 06/02/2018 N2N/CCD Import Serum or plasma 2279.0 High < 450 natriuretic peptide natriuretic peptide B prohormone N B prohormone N-terminal measurement (mass/volume) Serum or plasma 06/02/2018 N2N/CCD Import Serum or plasma 7.5 6.4-8.2 protein measurement protein measurement (mass/volume) (mass/volume) Serum or plasma 06/02/2018 N2N/CCD Import Serum or plasma 0.9 0.2-1.0 total bilirubin total bilirubin measurement (mass/ measurement (mass/volume) Serum or plasma urea 06/02/2018 N2N/CCD Import Serum or plasma 19 High 7- 18 nitrogen measurement urea nitrogen (mass/vo measurement (mass/volume) Serum or plasma urea 06/02/2018 N2N/CCD Import Serum or plasma 15.8 nitrogen/creatinine urea mass rati nitrogen/creatinine mass ratio Serum sodium 06/02/2018 N2N/CCD Import Serum sodium 139 136-145 measurement measurement Venous Blood Gas 06/02/2018 [facility] Venous Blood Gas pH 7.32 N 7.25-7.55 30 [address] [place] [address] [phone] Venous Blood Gas Pco2 55 mmHg High 45-50 Venous Blood Gas Po2 46 mmHg N 40-60 Venous Blood Gas Hco3 27.6 mEq/L Venous Blood Gas Base XS 0.6 mEq/L Venous Blood Gas OS Sat. 80.1 % High 60-80 Venous blood base 06/02/2018 N2N/CCD Import Venous blood base 0.6 excess determination excess by calculat determination by calculation Venous blood 06/02/2018 N2N/CCD Import Venous blood 27.6 bicarbonate bicarbonate measurement measurement (moles/volume (moles/volume) Venous blood oxygen 06/02/2018 N2N/CCD Import Venous blood oxygen 80.1 High 60-80 saturation (mass saturation (mass fraction) fraction) Venous blood pH 06/02/2018 N2N/CCD Import Venous blood pH 7.32 7.25-7 measurement with measurement with .55 patient temperatu patient temperature correction Venous blood partial 06/02/2018 N2N/CCD Import Venous blood 55 High 45- 50 pressure of carbon partial pressure of dioxide me carbon dioxide measurement adjusted to patient's actual temperature Venous blood partial 06/02/2018 N2N/CCD Import Venous blood 46 40-60 pressure of oxygen partial pressure of measuremen oxygen measurement adjusted to patient's actual temperature CBC W/Automated Diff 06/02/2018 [facility] White Blood Count 5.8 K/uL N 3.4-[address] [place], [place] [id number] [phone] Red Blood Count 3.81 M/uL Low 4.20-5.80 Hemoglobin 11.4 gm/dL Low 12.8-17.0 Hematocrit 36.9 % Low 38.0-48.0 Mean Cell Volume 96.9 fl High 80.0-96.0 Mean Corpuscular HGB 29.9 pg N 27.0-33.0 Mean Corpuscular HGB Conc 30.9 g/dL Low 31.7-36.0 Platelet Count 124 K/uL Low 155-360 Red Cell Distri Width SD 50.3 fl N 36-51 Red Cell Distri Width %CV 14.7 % N 11.6-15.8 Mean Platelet Volume 10.8 fL High 6.6-10.6 Neut% 64.2 % N 33.0-73.0 Lymph % 16.4 % Low 20.0-42.0 [place] % 14.6 % High 0.0-10.0 Eo% 4.3 % N 0.0-6.6 Bas% 0.5 % N 0.0-1.1 Neut# 3.75 K/uL N 1.8-7.0 Lymph # 0.96 K/uL Low 1.0-4.0 [place] # 0.85 K/uL High 0.0-0.8 Eos # 0.25 K/uL N 0.0-0.5 Baso # 0.03 K/uL N 0.0-0.1 Alt SerPl-cCnc 06/02/2018 N2N/CCD Import Alt SerPl-cCnc 14 12-78 Albumin/Glob SerPl 06/02/2018 N2N/CCD Import Albumin/Glob SerPl 0.7 Anion Gap 06/02/2018 N2N/CCD Import Anion Gap 6 Low 8-16 SerPl-sCnc SerPl-sCnc Automated blood 06/02/2018 N2N/CCD Import Automated blood 0.03 0.0-0.1 basophil count basophil count (count/volume) (count/volume) Automated blood 06/02/2018 N2N/CCD Import Automated blood 0.25 0.0-0.5 eosinophil count eosinophil count Chloride 06/02/2018 N2N/CCD Import Chloride 103 98-107 SerPl-sCnc SerPl-sCnc Blood monocytes 06/02/2018 N2N/CCD Import Blood monocytes 0.85 High 0.0- 0.8 automated count automated count (number/volume) (number/volume) Blood leukocytes 06/02/2018 N2N/CCD Import Blood leukocytes 5.8 3.4- 10.5 automated count automated count (number/volume) (number/volume) Blood hemoglobin 06/02/2018 N2N/CCD Import Blood hemoglobin 11.4 Low 12.8 -17.0 measurement measurement (mass/volume) (mass/volume) Blood erythrocytes 06/02/2018 N2N/CCD Import Blood erythrocytes 3.81 Low 4.20-5.80 automated count automated count (number/volume) (number/volume) Basophils/leuk NFr 06/02/2018 N2N/CCD Import Basophils/leuk NFr 0.5 0.0- 1.1 Bld Auto Bld Auto Automated blood 06/02/2018 N2N/CCD Import Automated blood 36.9 Low 38.0- 48.0 hematocrit (volume hematocrit (volume fraction) fraction) Automated blood 06/02/2018 N2N/CCD Import Automated blood 0.96 Low 1.0- 4.0 lymphocyte count lymphocyte count (number/volume) (number/volume) Automated blood 06/02/2018 N2N/CCD Import Automated blood 124 Low 155- 360 platelet count platelet count Automated 06/02/2018 N2N/CCD Import Automated 96.9 High 80.0-96.0 erythrocyte mean erythrocyte mean corpuscular volume corpuscular volume Automated 06/02/2018 N2N/CCD Import Automated 30.9 Low 31.7-36.0 erythrocyte mean erythrocyte mean corpuscular corpuscular hemoglobin hemoglobin concentration measurement (mass/volume) Automated 06/02/2018 N2N/CCD Import Automated 29.9 27.0-33.0 erythrocyte mean erythrocyte mean corpuscular corpuscular hemoglobin hemoglobin (mass per erythrocyte) Automated blood 06/02/2018 N2N/CCD Import Automated blood 10.8 High 6.6- 10.6 platelet mean platelet mean volume measurement volume measurement CBC W/Automated 05/27/2018 [facility] White Blood Count 5.0 K/uL N 3.4-10.5 31 Diff [address] [place] [address] [phone] Red Blood Count 3.93 M/uL Low 4.20-5.80 Hemoglobin 11.8 gm/dL Low 12.8-17.0 Hematocrit 38.0 % N 38.0-48.0 Mean Cell Volume 96.7 fl High 80.0-96.0 Mean Corpuscular HGB 30.0 pg N 27.0-33.0 Mean Corpuscular HGB Conc 31.1 g/dL Low 31.7-36.0 Platelet Count 141 K/uL Low 155-360 Red Cell Distri Width SD 51.4 fl High 36-51 Red Cell Distri Width %CV 15.0 % N 11.6-15.8 Mean Platelet Volume 10.8 fL High 6.6-10.6 Neut% 59.6 % N 33.0-73.0 Lymph % 18.5 % Low 20.0-42.0 [place] % 15.5 % High 0.0-10.0 Eo% 5.4 % N 0.0-6.6 Bas% 1.0 % N 0.0-1.1 Neut# 3.00 K/uL N 1.8-7.0 Lymph # 0.93 K/uL Low 1.0-4.0 [place] # 0.78 K/uL N 0.0-0.8 Eos # 0.27 K/uL N 0.0-0.5 Baso # 0.05 K/uL N 0.0-0.1 Comprehensive Metabolic 05/27/2018 [facility] Glucose 132 mg/dL High 74-106 Panel [address] [place], [place] [id number] [phone] BUN 22 mg/dL High 7-18 Creatinine 1.3 mg/dL N 0.6-1.3 Glom Filtration Rate, Estimate 56 mL/min >60 If >60 mL/min >60 32 BUN/Creat 16.9 ratio Sodium 144 mmol/L N 136-145 Potassium 4.6 mmol/L N 3.5-5.1 Chloride 106 mmol/L N 98-107 Carbon Dioxide 30 mmol/L N 21-32 Anion Gap 8 mEq/L N 8-16 Calcium 8.5 mg/dL N 8.5-10.1 Total Protein 7.4 g/dL N 6.4-8.2 Albumin 3.5 g/dL N 3.4-5.0 Globulin 3.9 g/dL N 1.9-4.3 Alb/Glob 0.9 ratio Bilirubin,Total 0.5 mg/dL N 0.2-1.0 Sgot/Ast 16 U/L N 15-37 SGPT/Alt 17 U/L N 12-78 Alkaline Phosphatase 111 U/L N 45-117 Reflex add FT3? Y Reflex add FT4? Y Magnesium 05/27/2018 [facility] Magnesium 2.2 mg/dL N 1.8-2.4 [address] [place], [place] [id number] [phone] Reflex add FT3? Y Reflex add FT4? Y TSH Reflex FT4 05/27/2018 [facility] Thyroid Stim 0.97 uIU/mL N 0.30-4.20 And/Or FT3 [address] [place] [address] [phone] Reflex add FT3? Y Reflex add FT4? Y Serum or plasma 05/27/2018 N2N/CCD Import Serum or plasma 2.2 1.8-2.4 magnesium magnesium measurement measurement (mass/volume (mass/volume) TSH SerPl-aCnc 05/27/2018 N2N/CCD Import [facility] SerPl-aCnc 0.97 0.30-4.20 Laboratory test 02/09/2018 [facility] Laboratory Point of Care 148 High 70-100 33 finding [phone] Glucose mg/dL Basic Metabolic 12/11/[address] [facility] [address] Glucose 126 High 74-106 [address] mg/dL [place], [place] [id number] [phone] BUN 32 mg/dL High 7-18 Creatinine 1.5 mg/dL High 0.6-1.3 Glom Filtration Rate, Estimate 48 mL/min >60 If 58 mL/min >60 35 BUN/Creat 21.3 ratio Sodium 134 mmol/L Low 136-145 Potassium 4.6 mmol/L N 3.5-5.1 Chloride 101 mmol/L N 98-107 Carbon Dioxide 29 mmol/L N 21-32 Anion Gap 4 mEq/L Low 8-16 Calcium 8.9 mg/dL N 8.5-10.1 Basic Metabolic Panel 10/20/2017 [facility] Glucose 102 mg/dL N 74-106 [address] [place], [place] [address] [phone] BUN 26 mg/dL High 7-18 Creatinine 1.1 mg/dL N 0.6-1.3 Glom Filtration Rate, Estimate >60 mL/min >60 If >60 mL/min >60 36 BUN/Creat 23.6 ratio Sodium 139 mmol/L N 136-145 Potassium 4.7 mmol/L N 3.5-5.1 Chloride 104 mmol/L N 98-107 Carbon Dioxide 30 mmol/L N 21-32 Anion Gap 5 mEq/L Low 8-16 Calcium 9.3 mg/dL N 8.5-10.1 LDL Cholesterol 09/16/2017 [facility] Cholesterol 108 mg/dL <200 37, 38 Profile [address] [place] [address] [phone] Triglycerides 111 mg/dL <150 39 HDL Cholesterol 45 mg/dL >40 40 LDL-Cholesterol 41 mg/dL < 100 41 Reflex add FT3? N Reflex add FT4? Y Glycohemoglobin A1c 09/16/2017 [facility] Glycohemoglobin 6.2 % N 4.2-6.[address] (A1c) [place], [place] [id number] [phone] eAG 131 mg/dL Laboratory 09/16/2017 [facility] Vitamin 77.2 30.0-100.0 43 test finding [address] D,25-Hydroxy ng/[place] [address] [phone] Homocyst(E)Ine 09/16/2017 [facility] Homocyst(e)ine, 20.6 High 0.0-15.0 44 , P/S [address] P/S umol/L [place], [place] [id number] [phone] TSH Reflex FT4 09/16/2017 [facility] Thyroid Stim 1.65 N 0.30-4.20 And/Or FT3 [address] Hormone uIU/[place] [address] [phone] Reflex add FT3? N Reflex add FT4? Y Comprehensive Metabolic 09/16/2017 [facility] Glucose 122 mg/dL High 74-[address] [place], [place] [id number] [phone] BUN 44 mg/dL High 7-18 Creatinine 1.9 mg/dL High 0.6-1.3 Glom Filtration Rate, Estimate 37 mL/min >60 If 44 mL/min >60 45 BUN/Creat 23.1 ratio Sodium 135 mmol/L Low 136-145 Potassium 5.1 mmol/L N 3.5-5.1 Chloride 103 mmol/L N 98-107 Carbon Dioxide 27 mmol/L N 21-32 Anion Gap 5 mEq/L Low 8-16 Calcium 8.8 mg/dL N 8.5-10.1 Total Protein 8.2 g/dL N 6.4-8.2 Albumin 3.6 g/dL N 3.4-5.0 Globulin 4.6 g/dL High 1.9-4.3 Alb/Glob 0.8 ratio Bilirubin,Total 0.5 mg/dL N 0.2-1.0 Sgot/Ast 27 U/L N 15-37 SGPT/Alt 24 U/L N 12-78 Alkaline Phosphatase 78 U/L N 45-117 Reflex add FT3? N Reflex add FT4? Y Basic Metabolic Panel 07/03/2017 [facility] Glucose 144 mg/dL High 74-[address] [place], [place] [id number] [phone] BUN 43 mg/dL High 7-18 Creatinine 1.8 mg/dL High 0.6-1.3 Glom Filtration Rate, Estimate 39 mL/min >60 If 47 mL/min >60 47 BUN/Creat 23.8 ratio Sodium 136 mmol/L N 136-145 Potassium 4.6 mmol/L N 3.5-5.1 Chloride 99 mmol/L N 98-107 Carbon Dioxide 30 mmol/L N 21-32 Anion Gap 7 mEq/L Low 8-16 Calcium 9.0 mg/dL N 8.5-10.1 Glycohemoglobin A1c 07/03/2017 [facility] Glycohemoglobin 6.0 % N 4.2-6.[address] (A1c) [place], [place] [id number] [phone] eAG 126 mg/dL Glycohemoglobin 06/03/2017 [facility] Glycohemoglobin 6.3 % N 4.2-6.3 49, A1c [address] (A1c) 50 [place] [address] [phone] eAG 134 mg/dL Basic Metabolic Panel 06/03/2017 [facility] Glucose 140 mg/dL High 74-[address] [place], [place] [id number] [phone] BUN 22 mg/dL High 7-18 Creatinine 1.4 mg/dL High 0.6-1.3 Glom Filtration Rate, Estimate 52 mL/min >60 If >60 mL/min >60 51 BUN/Creat 15.7 ratio Sodium 138 mmol/L N 136-145 Potassium 4.8 mmol/L N 3.5-5.1 Chloride 105 mmol/L N 98-107 Carbon Dioxide 27 mmol/L N 21-32 Anion Gap 6 mEq/L Low 8-16 Calcium 8.5 mg/dL N 8.5-10.1 Basic Metabolic Panel 03/19/2017 [facility] Glucose 148 mg/dL High 74-[address] [place] [address] [phone] BUN 33 mg/dL High 7-18 Creatinine 1.2 mg/dL N 0.6-1.3 Glom Filtration Rate, Estimate >60 mL/min >60 If >60 mL/min >60 53 BUN/Creat 27.5 ratio Sodium 139 mmol/L N 136-145 Potassium 4.9 mmol/L N 3.5-5.1 Chloride 105 mmol/L N 98-107 Carbon Dioxide 29 mmol/L N 21-32 Anion Gap 5 mEq/L Low 8-16 Calcium 9.2 mg/dL N 8.5-10.1 TSH Reflex FT4 02/02/2017 [facility] Thyroid Stim 1.92 uIU/mL N 0.30-4.20 And/Or FT3 [address] [place] [address] [phone] Reflex add FT3? Y Reflex add FT4? Y CBS W/Automated Diff 02/02/2017 [facility] White Blood 8.8 K/uL N 3.4-10.[address] [place] [place] [address] [phone] Red Blood Count 4.01 M/uL Low 4.20-5.80 Hemoglobin 12.5 gm/dL Low 12.8-17.0 Hematocrit 38.1 % N 38.0-48.0 Mean Cell Volume 95.0 fl N 80.0-96.0 Mean Corpuscular HGB 31.2 pg N 27.0-33.0 Mean Corpuscular HGB Conc 32.8 g/dL N 31.7-36.0 Platelet Count 174 K/uL N 150-400 Red Cell Distri Width SD 51.7 fl High 36-51 Red Cell Distri Width %CV 15.2 % N 11.6-15.8 Mean Platelet Volume 10.3 fL N 6.6-10.6 Neut% 70.9 % N 33.0-73.0 Lymph % 15.2 % Low 20.0-42.0 [place] % 9.8 % N 0.0-10.0 Eo% 3.8 % N 0.0-6.6 Bas% 0.3 % N 0.0-1.1 Neut# 6.23 K/uL N 1.8-7.0 Lymph # 1.34 K/uL N 1.0-4.0 [place] # 0.86 K/uL High 0.0-0.8 Eos # 0.33 K/uL N 0.0-0.5 Baso # 0.03 K/uL N 0.0-0.1 Magnesium 02/02/2017 [facility] Magnesium 2.9 mg/dL High 1.8-2.4 [address] [place] [id number] [phone] Reflex add FT3? Y Reflex add FT4? Y Basic Metabolic Panel 02/02/2017 [facility] Glucose 189 mg/dL High 74-106 [address] [place], [place] [id number] [phone] BUN 59 mg/dL High 7-18 Creatinine 1.9 mg/dL High 0.6-1.3 Glom Filtration Rate, Estimate 37 mL/min >60 If 44 mL/min >60 54 BUN/Creat 31.0 ratio Sodium 134 mmol/L Low 136-145 Potassium 4.2 mmol/L N 3.5-5.1 Chloride 95 mmol/L Low 98-107 Carbon Dioxide 36 mmol/L High 21-32 Anion Gap 3 mEq/L Low 8-16 Calcium 9.6 mg/dL N 8.5-10.1 Reflex add FT3? Y Reflex add FT4? Y Xray 12/31/2016 [facility] - Radiology CT Abdomen, unchanged [address] W/O Contrast mesenteric [place], [place] [id number] [phone] Glucose BldC 11/03/2016 N2N/CCD Import Glucose BldC 141 High 70-1 Glucomtr-mCnc Glucomtr-mCnc 10 Anion Gap 11/03/2016 N2N/CCD Import Anion Gap 12 8-16 SerPl-sCnc SerPl-sCnc BUN SerPl-mCnc 11/03/2016 N2N/CCD Import BUN SerPl-mCnc 23 High 7-18 BUN/Creat 11/03/2016 N2N/CCD Import BUN/Creat 17.6 SerPl SerPl Co2 SerPl-sCnc 11/03/2016 N2N/CCD Import Co2 SerPl-sCnc 27 21-3 2 Calcium 11/03/2016 N2N/CCD Import Calcium 9.3 8.5- SerPl-mCnc SerPl-mCnc 10.1 Chloride 11/03/2016 N2N/CCD Import Chloride 98 98-1 SerPl-sCnc SerPl-sCnc 07 WBC # Bld Auto 11/03/2016 N2N/CCD Import WBC # Bld Auto 9.8 3.4- 10.5 Sodium 11/03/2016 N2N/CCD Import Sodium 137 136- SerPl-sCnc SerPl-sCnc 145 RDW RBC 11/03/2016 N2N/CCD Import RDW RBC 13.4 11.6 Auto-Rto Auto-Rto -15. 8 RBC # Bld Auto 11/03/2016 N2N/CCD Import RBC # Bld Auto 4.47 4.20 -5.8 0 Potassium 11/03/2016 N2N/CCD Import Potassium 3.6 3.5- SerPl-sCnc SerPl-sCnc 5.1 Platelet # Bld 11/03/2016 N2N/CCD Import Platelet # Bld 294 150- Auto Auto 400 PMV Bld Auto 11/03/2016 N2N/CCD Import PMV Bld Auto 10.5 6.6- 10.6 Magnesium 11/03/2016 N2N/CCD Import Magnesium 1.8 1.8- SerPl-mCnc SerPl-mCnc 2.4 MCV RBC Auto 11/03/2016 N2N/CCD Import MCV RBC Auto 92.4 80.0 -96. 0 MCHC RBC 11/03/2016 N2N/CCD Import MCHC RBC 32.7 31.7 Auto-mCnc Auto-mCnc -36. 0 MCH RBC Qn 11/03/2016 N2N/CCD Import MCH RBC Qn 30.2 27.0 Auto Auto -33. 0 Hgb Bld-mCnc 11/03/2016 N2N/CCD Import Hgb Bld-mCnc 13.5 12.8 -17. 0 Hct VFr Bld 11/03/2016 N2N/CCD Import Hct VFr Bld 41.3 38.0 Auto Auto -48. 0 Glucose 11/03/2016 N2N/CCD Import Glucose 133 High 74-1 [mass/volume] [mass/volume] 06 in serum or in serum or plasma plasma GFR/Bsa 11/03/2016 N2N/CCD Import GFR/Bsa 57 >60 pred.non black pred.non black SerPl SerPl MDRD-ArVRat MDRD-ArVRat Creat 11/03/2016 N2N/CCD Import Creat 1.3 0.6- SerPl-mCnc SerPl-mCnc 1.3 CBC 11/01/2016 [facility] White Blood 8.1 K/uL N 3.4- [address] Count 10.5 [place] [address] [phone] Red Blood Count 3.93 M/uL Low 4.20-5.80 Hemoglobin 11.8 gm/dL Low 12.8-17.0 Hematocrit 36.3 % Low 38.0-48.0 Mean Cell Volume 92.4 fl N 80.0-96.0 Mean Corpuscular HGB 30.0 pg N 27.0-33.0 Mean Corpuscular HGB Conc 32.5 g/dL N 31.7-36.0 Platelet Count 228 K/uL N 150-400 Red Cell Distri Width %CV 12.9 % N 11.6-15.8 Mean Platelet Volume 10.5 fL N 6.6-10.6 CBS W/Automated Diff 11/01/2016 [facility] Red Cell Distri 42.6 fl N 36-[address] Width SD [place], [place] [id number] [phone] Neut% 61.9 % N 33.0-73.0 Lymph % 21.6 % N 20.0-42.0 [place] % 11.4 % High 0.0-10.0 Eo% 4.7 % N 0.0-6.6 Bas% 0.4 % N 0.0-1.1 Neut# 5.04 K/uL N 1.8-7.0 Lymph # 1.76 K/uL N 1.0-4.0 [place] # 0.93 K/uL High 0.0-0.8 Eos # 0.38 K/uL N 0.0-0.5 Baso # 0.03 K/uL N 0.0-0.1 Basic Metabolic Panel 11/01/2016 [facility] Glucose 156 mg/dL High 74-[address] [place] [address] [phone] BUN 22 mg/dL High 7-18 Creatinine 1.0 mg/dL N 0.6-1.3 Glom Filtration Rate, Estimate >60 mL/min >60 If >60 mL/min >60 56 BUN/Creat 22.0 ratio Sodium 135 mmol/L Low 136-145 Potassium 3.3 mmol/L Low 3.5-5.1 Chloride 99 mmol/L N 98-107 Carbon Dioxide 28 mmol/L N 21-32 Anion Gap 8 mEq/L N 8-16 Calcium 9.0 mg/dL N 8.5-10.1 RDW RBC Auto 11/01/2016 N2N/CCD Import RDW RBC Auto 42.6 36-51 Neutrophils/leuk 11/01/2016 N2N/CCD Import Neutrophils/leuk 61.9 33.0- 73.0 NFr Bld Auto NFr Bld Auto Neutrophils # Bld 11/01/2016 N2N/CCD Import Neutrophils # Bld 5.04 1.8- 7.0 Auto Auto Monocytes/leuk 11/01/2016 N2N/CCD Import Monocytes/leuk 11.4 High 0.0- 10.0 NFr Bld Auto NFr Bld Auto Monocytes # Bld 11/01/2016 N2N/CCD Import Monocytes # Bld 0.93 High 0.0- 0.8 Auto Auto Lymphocytes/leuk 11/01/2016 N2N/CCD Import Lymphocytes/leuk 21.6 20.0- 42.0 NFr Bld Auto NFr Bld Auto Lymphocytes # Bld 11/01/2016 N2N/CCD Import Lymphocytes # Bld 1.76 1.0- 4.0 Auto Auto Eosinophil/leuk 11/01/2016 N2N/CCD Import Eosinophil/leuk 4.7 0.0-6.6 NFr Bld Auto NFr Bld Auto Eosinophil # Bld 11/01/2016 N2N/CCD Import Eosinophil # Bld 0.38 0.0- 0.5 Auto Auto Basophils/leuk 11/01/2016 N2N/CCD Import Basophils/leuk 0.4 0.0-1.1 NFr Bld Auto NFr Bld Auto Basophils # Bld 11/01/2016 N2N/CCD Import Basophils # Bld 0.03 0.0-0.1 Auto Auto Laboratory test 11/01/2016 [facility] Magnesium 2.2 mg/dL N 1.8-2.4 finding [address] [place] [address] [phone] C-Reactive Protein,Quant 79.5 mg/L High <3.0 Hgb A1c MFr Bld 10/30/2016 N2N/CCD Import Hgb A1c MFr Bld 8.5 High 4.2- 6.3 Blood glucose 10/30/2016 N2N/CCD Import Blood glucose 197 mean value mean value measurement measurement estimated fro estimated from glycated hemoglobin (mass/volume) Serum or plasma 10/30/2016 N2N/CCD Import Serum or plasma 10.5 Low 15.0- 20.0 trough vancomycin trough level at trough vancomycin level at trough (mass/volume) Troponin I 10/29/2016 N2N/CCD Import Troponin I 0.057 SerPl-mCnc SerPl-mCnc Bilirub Ur Ql 10/29/2016 N2N/CCD Import Bilirub Ur Ql Negative Negative Strip.auto Strip.auto Color Ur 10/29/2016 N2N/CCD Import Color Ur Yellow Yellow Epithelial cells 10/29/2016 N2N/CCD Import Epithelial cells Very Few None Seen [presence] in [presence] in urine sediment by urine sediment l by light microscopy Unloinc 10/29/2016 N2N/CCD Import Unloinc . Prot SerPl-mCnc 10/29/2016 N2N/CCD Import Prot SerPl-mCnc 8.2 6.4-8.2 Globulin Ser 10/29/2016 N2N/CCD Import Globulin Ser 5.3 High 1.9-4.3 Calc-mCnc Calc-mCnc Erythrocyte 10/29/2016 N2N/CCD Import Erythrocyte 58 High 0-20 sedimentation sedimentation rate by 15 minute rate by 15 readin minute reading Bilirub 10/29/2016 N2N/CCD Import Bilirub 1.1 High 0.2-1.0 SerPl-mCnc SerPl-mCnc Alp SerPl-cCnc 10/29/2016 N2N/CCD Import Alp SerPl-cCnc 87 45-117 Lactate 10/29/2016 N2N/CCD Import Lactate 1.5 0.4-1.9 [moles/volume] in [moles/volume] serum or plasma in serum or plasma Bacteria Bld 10/29/2016 N2N/CCD Import Bacteria Bld No Growth: Aerobe Cult Aerobe Cult Final Report Anaerobic blood 10/29/2016 N2N/CCD Import Anaerobic blood No Growth: culture culture Final Report Venous blood 10/29/2016 N2N/CCD Import Venous blood 29 Low 40-60 partial pressure partial pressure of oxygen of oxygen measuremen measurement with patient temperature corrrection Venous blood 10/29/2016 N2N/CCD Import Venous blood 45 45-50 partial pressure partial pressure of carbon dioxide of carbon me dioxide measurement adjusted to patients actual temperature Venous blood pH 10/29/2016 N2N/CCD Import Venous blood pH 7.40 7.25- 7.55 measurement with measurement with patient temperatu patient temperature correction Venous blood 10/29/2016 N2N/CCD Import Venous blood 54.2 Low 60-80 oxygen saturation oxygen (mass fraction) saturation (mass fraction) Venous blood 10/29/2016 N2N/CCD Import Venous blood 27.2 bicarbonate bicarbonate measurement measurement (moles/volume (moles/volume) Venous blood base 10/29/2016 N2N/CCD Import Venous blood 1.9 excess by base excess by calculation calculation pH Ur Strip.auto 10/29/2016 N2N/CCD Import pH Ur Strip.auto 5.5 Low 6.5- 7.5 Urobilinogen Ur 10/29/2016 N2N/CCD Import Urobilinogen Ur 0.2 0.2-1.0 Strip-aCnc Strip-aCnc Urine hemoglobin 10/29/2016 N2N/CCD Import Urine hemoglobin Moderate High Negative detection by detection by automated test automated test strip strip Urine glucose 10/29/2016 N2N/CCD Import Urine glucose Negative Negative measurement by measurement by automated test automated test strip strip (mass/volume) Urine appearance 10/29/2016 N2N/CCD Import Urine appearance Clear Clear determination determination Specific gravity 10/29/2016 N2N/CCD Import Specific gravity 1.025 1.010- 1.030 of urine by of urine by automated test automated test strip strip Prot Ur 10/29/2016 N2N/CCD Import Prot Ur 30 High Negative Strip.auto-mCnc Strip.auto-mCnc Nitrite Ur Ql 10/29/2016 N2N/CCD Import Nitrite Ur Ql Negative Negative Strip.auto Strip.auto Leukocytes 10/29/2016 N2N/CCD Import Leukocytes None Seen 0-7 [#/area] in urine [#/area] in sediment by urine sediment microscop by microscopy high power field Leukocyte 10/29/2016 N2N/CCD Import Leukocyte Negative Negative esterase Ur Ql esterase Ur Ql Strip.auto Strip.auto Ketones Ur 10/29/2016 N2N/CCD Import Ketones Ur 15 High Negative Strip.auto-mCnc Strip.auto-mCnc Alt SerPl-cCnc 10/29/2016 N2N/CCD Import Alt SerPl-cCnc 14 12 Ast SerPl-cCnc 10/29/2016 N2N/CCD Import Ast SerPl-cCnc 14 Low 15-37 Albumin 10/29/2016 N2N/CCD Import Albumin 2.9 Low 3.4-5.0 SerPl-mCnc SerPl-mCnc Acetone 10/29/2016 N2N/CCD Import Acetone Moderate High Negative [presence] in [presence] in serum or plasma serum or plasma Albumin/Glob 10/29/2016 N2N/CCD Import Albumin/Glob 0.5 SerPl SerPl Serum or plasma 09/28/2016 N2N/CCD Import Serum or plasma 1040.0 High < 450 natriuretic natriuretic peptide B peptide B prohormone N prohormone N-terminal measurement (mass/volume) Serum or plasma 09/28/2016 N2N/CCD Import Serum or plasma 43 39-308 creatine kinase creatine kinase measurement measurement (enzym (enzymatic activity/volume) Comprehensive 09/08/2016 [facility] Glucose 175 mg/dL High 74-106 57 Metabolic Panel [address] [place], [place] [id number] [phone] BUN 32 mg/dL High 7-18 Creatinine 1.1 mg/dL N 0.6-1.3 Glom Filtration Rate, Estimate >60 mL/min N >60 If >60 mL/min N >60 58 BUN/Creat 29.0 ratio N Sodium 138 mmol/L N 136-145 Potassium 4.6 mmol/L N 3.5-5.1 Chloride 105 mmol/L N 98-107 Carbon Dioxide 28 mmol/L N 21-32 Anion Gap 5 mEq/L Low 8-16 Calcium 8.5 mg/dL N 8.5-10.1 Total Protein 7.1 g/dL N 6.4-8.2 Albumin 2.9 g/dL Low 3.4-5.0 Globulin 4.2 g/dL N 1.9-4.3 Alb/Glob 0.7 ratio N Bilirubin,Total 0.4 mg/dL N 0.2-1.0 Sgot/Ast 15 U/L N 15-37 SGPT/Alt 17 U/L N 78 Alkaline Phosphatase 101 U/L N 45-117 Laboratory test 09/08/2016 [facility] Magnesium 2.2 mg/dL N 1.8-2.[address] [place] [address] [phone] Xray 04/30/2016 [facility] - Radiology CT Abdomen, mesenteric [address] W/[place] [address] [phone] Comprehensive 04/07/2016 [facility] Glucose 304 mg/dL High 74-106 Metabolic Panel [address] [place] [address] [phone] BUN 63 mg/dL High 7-18 Creatinine 1.4 mg/dL High 0.6-1.3 Glom Filtration Rate, Estimate 52 mL/min N >60 If >60 mL/min N >60 59 BUN/Creat 45.0 ratio N Sodium 135 mmol/L Low 136-145 Potassium 4.1 mmol/L N 3.5-5.1 Chloride 101 mmol/L N 98-107 Carbon Dioxide 28 mmol/L N 21-32 Anion Gap 6 mEq/L Low 8-16 Calcium 9.0 mg/dL N 8.5-10.1 Total Protein 7.9 g/dL N 6.4-8.2 Albumin 3.1 g/dL Low 3.4-5.0 Globulin 4.8 g/dL High 1.9-4.3 Alb/Glob 0.6 ratio N Bilirubin,Total 0.2 mg/dL N 0.2-1.0 Sgot/Ast 13 U/L Low 15-37 60 SGPT/Alt 17 U/L N 12-78 Alkaline Phosphatase 160 U/L High 45-117 @[facility] Pat Id: [id number] @[facility] Req #: [id number] Is Patient Fasting? Non-Fasting Comprehensive Metabolic 03/31/2016 [facility] Glucose 233 mg/dL High 74-106 Panel [address] [place] [address] [phone] BUN 68 mg/dL High 7-18 Creatinine 2.1 mg/dL High 0.6-1.3 Glom Filtration Rate, Estimate 33 mL/min >60 If 39 mL/min >60 61 BUN/Creat 32.3 ratio Sodium 135 mmol/L Low 136-145 Potassium 4.3 mmol/L 3.5-5.1 Chloride 100 mmol/L 98-107 Carbon Dioxide 26 mmol/L 21-32 Anion Gap 9 mEq/L 8-16 Calcium 8.9 mg/dL 8.5-10.1 Total Protein 8.3 g/dL High 6.4-8.2 Albumin 3.2 g/dL Low 3.4-5.0 Globulin 5.1 g/dL High 1.9-4.3 Alb/Glob 0.6 ratio Bilirubin,Total 0.4 mg/dL 0.2-1.0 Sgot/Ast 14 U/L Low 15-37 62 SGPT/Alt 16 U/L 12-78 Alkaline Phosphatase 157 U/L High 45-117 Laboratory 03/31/2016 [facility] TSH Reflex FT4 1.23 0.30-4.20 63 test finding [address] and/or FT3 uIU/[place] [address] [phone] Laboratory 03/04/2016 N2N/CCD Import Alanine 15 12-78 test finding Aminotransferase (Alt/SGPT) Albumin 2.9 Low 3.4-5.0 Albumin/Globulin Ratio [...] White Blood Count 5.9 3.4-10.5 Laboratory test 03/02/2016 N2N/CCD Import Urine Bacteria Many High None Seen finding Urine Bilirubin Negative Negative Urine Blood Small High Negative Urine Clarity SL Cloudy Clear Urine Color Yellow Yellow Urine Culture Organism: Proteus Mirabilis Urine Glucose (Ua) Negative Negative Urine Ketones Negative Negative Urine Leukocyte Esterase Moderate High Negative Urine Nitrite Negative Negative Urine Protein 100 High Negative Urine Specific [place] 1.010 1.010-1.030 Urine Triple Phosphate Crystals Many None Seen Urine Urobilinogen 0.2 0.2-1.0 Laboratory test finding 02/24/2016 N2N/CCD Import Bedside Glucose 195 High 70-110 Laboratory test finding 02/20/2016 N2N/CCD Import Anion Gap 5 Low 8-16 BUN/Creatinine Ratio [...] 136 136-145 White Blood Count 6.6 3.4-10.5 Blood Culture 02/19/2016 [facility] Blood Culture Aerobic See Note 64 [address] [place] [address] [phone] Blood Culture Anaerobic See Note 65 Laboratory test finding 02/19/2016 N2N/CCD Import Aerobic Blood No Growth Culture Anaerobic Blood Culture No Growth Blood Culture 02/19/2016 [facility] Blood Culture Aerobic See Note 66 [address] [place] [address] [phone] Blood Culture Anaerobic See Note 67 Laboratory test finding 02/19/2016 N2N/CCD Import Aerobic Blood No Growth Culture Anaerobic Blood Culture No Growth Laboratory test 02/19/2016 [facility] Aot Request Test(s) [address] added [place], [place] [id number] [phone] Laboratory test 02/19/2016 N2N/CCD Import Miscellaneous Test Test(s) finding Comment added Laboratory test 02/18/2016 N2N/CCD Import Basophils # (Auto) 0.06 Low 0.1 - finding 0.2 Basophils (%) (Auto) 0.8 0.1-1.0 C-Reactive Protein, [...] Distribution Width 71.4 High 36-51 Laboratory test 02/15/2016 N2N/CCD Import Pro-B-Type Natriuretic 2423.0 High <450 finding Peptide Laboratory test 02/14/2016 N2N/CCD Import Alanine 13 12-78 finding Aminotransferase (Alt/SGPT) Albumin 3.0 Low 3.4-5.0 Albumin/Globulin Ratio 0.6 Alkaline Phosphatase 152 High 45-117 Aspartate Amino Transf (Ast/Sgot) 17 15-37 Globulin 5.0 High 1.9-4.3 Lactic Acid Level 1.0 0.4-1.9 Total Bilirubin 0.2 0.2-1.0 Total Creatine Kinase 60 39-308 Total Protein 8.0 6.4-8.2 Troponin I 0.015 Laboratory test 02/05/2016 N2N/CCD Import TB Test (QFT) Negative Negative finding TB Test (QFT) Antigen 0.05 . TB Test (QFT) Antigen Minus Nil 0 . TB Test (QFT) Interpretation See Note 69 TB Test (QFT) Nil 0.05 . TB Test (QFT) Positive Criteria See Note 70 Laboratory test 01/31/2016 N2N/CCD Import Erythrocyte 60 High 0-20 finding Sedimentation Rate Laboratory test 01/14/2016 N2N/CCD Import Urine Bilirubin Negative Negative finding Urine Blood Negative Negative Urine Clarity Clear Clear Urine Color Yellow Yellow Urine Glucose (Ua) Negative Negative Urine Ketones Negative Negative Urine Leukocyte Esterase Negative Negative Urine Nitrite Negative Negative Urine Protein Negative Negative Urine Specific [place] 1.010 1.010-1.030 Urine Urobilinogen 0.2 0.2-1.0 Urine pH 8.0 High 6.5-7.5 Laboratory test 01/14/2016 N2N/CCD Import Alanine Aminotransferase 17 12 -78 finding (Alt/SGPT) Albumin 3.3 Low 3.4-5.0 Albumin/Globulin Ratio 0.7 [...] Glucose Screen 175 High 74-106 Hematocrit 35.4 #L 38.0-48.0 Hemoglobin 10.5 Low 12.8-17.0 Lipase 174 [...] White Blood Count 6.9 3.4-10.5 Laboratory test 01/10/2016 N2N/CCD Import Alanine Aminotransferase 14 12 -78 finding (Alt/SGPT) Albumin 3.0 Low 3.4-5.0 Albumin/Globulin Ratio 0.7 [...] White Blood Count 6.6 3.4-10.5 Laboratory test 12/04/2015 N2N/CCD Import Alanine Aminotransferase 12 12 -78 finding (Alt/SGPT) Albumin 3.0 Low 3.4-5.0 Albumin/Globulin Ratio [...] White Blood Count 7.2 3.4-10.5 Laboratory test 11/27/2015 N2N/CCD Import Stool Occult Blood Negative Negative finding Laboratory test 11/27/2015 N2N/CCD Import Activated Partial 39.2 High 23.9-34.3 finding Thromboplast Time Alanine Aminotransferase (Alt/SGPT) 12 12-78 [...] Glucose Screen 292 High 74-106 Hemoglobin 5.5 *L 12.8-17.0 Inr International Normalized Ratio 2.1 High 0.9-1.1 Iron Level 14 *L 65-175 Pathologist Review (Hematology) Indicated,Slide Sent Potassium Level 4.5 # 3.5-5.1 Prothrombin Time 23.4 High 12.1-14.9 Sodium Level 130 Low 136-145 Total Bilirubin 0.3 0.2-1.0 Total Iron Binding Capacity 403 250-450 Total Protein 7.9 6.4-8.2 Transferrin % Saturation 3 Low 12-57 Laboratory test 12/07/2014 N2N/CCD Import Bedside Glucose 63 Low 70-110 finding Laboratory test 12/06/2014 N2N/CCD Import Magnesium Level 2.2 1.8-2.4 finding Neuts Band/leuk NFr 12/05/2014 N2N/CCD Import Neuts Band/leuk 1 0-8 Bld Manual NFr Bld Manual Manual blood 12/05/2014 N2N/CCD Import Manual blood 75 High 33-73 segmented segmented neutrophils/100 neutrophils/100 leukocytes leukocytes Manual blood band 12/05/2014 N2N/CCD Import Manual blood band 1 0-8 neutrophils neutrophils form/100 leukocytes form/100 leukocytes Neuts Seg/leuk NFr 12/05/2014 N2N/CCD Import Neuts Seg/leuk NFr 75 High 33-73 Bld Manual Bld Manual Blood platelet 12/05/2014 N2N/CCD Import Blood platelet Normal adequacy detection adequacy detection by light microsc by light microscopy Blood hypochromia 12/05/2014 N2N/CCD Import Blood hypochromia 2+ detection by light detection by light microscopy microscopy Laboratory test 12/05/2014 N2N/CCD Import Anion Gap 6 Low 8-16 finding BUN/Creatinine Ratio 20.0 Band Neutrophils % 1 [...] 136 136-145 White Blood Count 7.6 3.4-10.5 Serum hepatitis B 11/30/2014 N2N/CCD Import Serum hepatitis Nonreactive Nonreactive virus surface B virus surface antigen detection antigen detection HCV ab ser Ia QL 11/30/2014 N2N/CCD Import HCV ab ser Ia Nonreactive Nonreactive QL Laboratory test 11/30/2014 N2N/CCD Import Estimated 137 finding Average Glucose (eAG) Hemoglobin A1c 6.4 High 4.2-6.3 Hepatitis C 11/30/2014 [facility] Hepatitis C Nonreactive Antibody [address] [place] [address] [phone] Signal/Cutoff ratio < 0.02 <0.80 71 Laboratory test 11/30/2014 [facility] Hepatitis B Nonreactive [address] Surface [place] [address] [phone] Unloinc 11/29/2014 N2N/CCD Import Unloinc R.Rad.Art. Unloinc N/C Unloinc Oxygen Unloinc Yes Prot Ur 11/29/2014 N2N/CCD Import Prot Ur 100 High Negative Strip.auto-mCnc Strip.auto-mCnc Arterial blood gas 11/29/2014 N2N/CCD Import Arterial blood gas R.Rad.Art. measurement measurement Arterial blood 11/29/2014 N2N/CCD Import Arterial blood 76 Low 80-105 partial pressure of partial pressure of oxygen adjusted oxygen adjusted to patient's actualtemperature Urine glucose 11/29/2014 N2N/CCD Import Urine glucose Negative Negative measurement by measurement by automated test automated test strip strip (mass/volume) Carboxyhemoglobin 11/29/2014 N2N/CCD Import Carboxyhemoglobin 1.6 High 0.0-1.5 QN QN Determination of 11/29/2014 N2N/CCD Import Determination of 3 0-20 flow rate of flow rate of inhaled oxygen inhaled oxygen Urine hemoglobin 11/29/2014 N2N/CCD Import Urine hemoglobin Negative Negative detection by detection by automated test automated test strip strip Whole blood oxygen 11/29/2014 N2N/CCD Import Whole blood oxygen 92.0 91.9-98.5 saturation saturation measurement measurement Bacteria detection 11/29/2014 N2N/CCD Import Bacteria detection Moderate High None Seen in urine sediment in urine sediment by light micr by light microscopy Laboratory test 11/29/2014 [facility] Rapid Abdet See Note 73 finding [address] [place] [address] [phone] Laboratory test 11/29/2014 [facility] Omentum Biopsy See Note 74 finding [address] [place] [address] [phone] Urine total 11/29/2014 N2N/CCD Import Urine total Small High Negative bilirubin detection bilirubin detection by automated test by automated test strip Urobilinogen Ur 11/29/2014 N2N/CCD Import Urobilinogen Ur 0.2 0.2-1.0 Strip-aCnc Strip-aCnc Epithelial cells 11/29/2014 N2N/CCD Import Epithelial cells Very Few None Seen detection in urine detection in urine sediment by li sediment by light microscopy Serum or plasma 11/29/2014 N2N/CCD Import Serum or plasma 1.7 0.4-2.0 lactate measurement lactate measurement (moles/volume) (moles/volume) pH Ur Strip.auto 11/29/2014 N2N/CCD Import pH Ur Strip.auto 5.5 Low 6.5- 7.5 Laboratory test 11/29/2014 N2N/CCD Import Alanine 10 Low 12-78 finding Aminotransferase (Alt/SGPT) Albumin 2.5 Low 3.4-5.0 Albumin/Globulin Ratio [...] Bilirubin 0.5 0.2-1.0 Total Protein 6.8 6.4-8.2 Ketones Ur 11/29/2014 N2N/CCD Import Ketones Ur 15 High Negative Strip.auto-mCnc Strip.auto-mCnc Lipase SerPl-cCnc 11/29/2014 N2N/CCD Import Lipase SerPl-cCnc 62 Low 73- 393 Laboratory test 11/29/2014 N2N/CCD Import Troponin I 0.027 finding Bacteria [presence] 11/29/2014 N2N/CCD Import Bacteria Moderate High None Seen in urine sediment [presence] in by light hal urine sediment by light microscopy Serum or plasma 11/29/2014 N2N/CCD Import Serum or plasma 62 Low 73-393 lipase measurement lipase measurement (enzymatic acti (enzymatic activity/volume) Laboratory test 11/29/2014 N2N/CCD Import Urine Amorphous Small Negative finding Sediment Urine Bacteria Moderate High None Seen Urine Bilirubin Small High Negative Urine Blood Negative Negative Urine Clarity Clear Clear Urine Color DK Yellow Yellow Urine Culture Organism: Mixed Urethral Alonso Urine Culture Reflexed Culture To Follow Urine Epithelial Cells Very Few None Seen Urine Glucose (Ua) Negative Negative Urine Ketones 15 High Negative Urine Leukocyte Esterase Negative Negative Urine Mucus Moderate None Seen Urine Nitrite Negative Negative Urine Protein 100 High Negative Urine Uric Acid Crystals Few None Seen Urine Urobilinogen 0.2 0.2-1.0 Urine pH 5.5 Low 6.5-7.5 Laboratory 11/29/2014 N2N/CCD Import Laboratory Culture To comment [Text] in comment [Text] Follow Report Narrative in Report Narrative Leukocyte 11/29/2014 N2N/CCD Import Leukocyte Negative Negative esterase Ur Ql esterase Ur Ql Strip.auto Strip.auto Laboratory test 11/29/2014 N2N/CCD Import Kodi Test Yes finding Arterial Blood Base Excess -2 -2-2 Arterial [...] Oxygen Delivery Device N/C * Inhaled oxygen 11/29/2014 N2N/CCD Import * Inhaled oxygen 3 0-20 flow rate flow rate Unloinc 11/29/2014 N2N/CCD Import Unloinc Culture To Follow Arterial blood 11/29/2014 N2N/CCD Import Arterial blood 7.34 Low 7.35- 7.45 pH measurement pH measurement with patient with patient tempera temperature correction Mucus detection 11/29/2014 N2N/CCD Import Mucus detection Moderate None Seen in urine in urine sediment by sediment by light microsc light microscopy Arterial blood 11/29/2014 N2N/CCD Import Arterial blood 45 35-45 partial pressure partial pressure of carbon of carbon dioxide dioxide with temperature correction Arterial blood 11/29/2014 N2N/CCD Import Arterial blood 76 Low 80-105 partial pressure partial pressure of oxygen with of oxygen with tem temperature correction Mucus [presence] 11/29/2014 N2N/CCD Import Mucus [presence] Moderate None Seen in urine in urine sediment by sediment by light micros light microscopy Nitrite Ur Ql 11/29/2014 N2N/CCD Import Nitrite Ur Ql Negative Negative Strip.auto Strip.auto Oxygen 11/29/2014 N2N/CCD Import Oxygen 92.0 91.9-98.5 saturation in saturation in blood blood Basic Metabolic 11/08/2013 [facility] Glucose 315 mg/dL High 76-115 [address] [place] [address] [phone] BUN 37 mg/dL High 5-23 Creatinine 1.3 mg/dL 0.5-1.4 Glom Filtration Rate, Estimate 57 mL/min >60 If >60 mL/min >60 75 BUN/Creat 28.4 ratio Sodium 136 mmol/L 136-145 Potassium 4.0 mmol/L 3.5-5.1 Chloride 97 mmol/L Low 98-107 Carbon Dioxide 32 mEq/L High 18-29 Anion Gap 11 mEq/L 8-16 Calcium 9.3 mg/dL 8.5-10.1 Basic Metabolic Panel 10/28/2013 [facility] Glucose 215 mg/dL High 76-115 [address] [place], [place] [id number] [phone] BUN 31 mg/dL High 5-23 Creatinine 1.0 mg/dL 0.5-1.4 Glom Filtration Rate, Estimate >60 mL/min >60 If >60 mL/min >60 76 BUN/Creat 31.0 ratio Sodium 138 mmol/L 136-145 Potassium 4.1 mmol/L 3.5-5.1 Chloride 102 mmol/L 98-107 Carbon Dioxide 29 mEq/L 18-29 Anion Gap 11 mEq/L 8-16 Calcium 8.5 mg/dL 8.5-10.1 Comprehensive Metabolic 08/18/2012 [facility] Glucose 128 mg/dL High 76-115 [address] [place] [address] [phone] BUN 24 mg/dL High 5-23 Creatinine 0.9 mg/dL 0.5-1.4 Glom Filtration Rate, Estimate >60 mL/min >60 If >60 mL/min >60 77 BUN/Creat 26.6 ratio Sodium 136 mmol/L 136-145 [...] 30-65 Alkaline Phosphatase 66 U/L 50-136 1 NO DX 2 Note: Persistent reduction for 3 months or more in an eGFR <60 mL/min/1.73 m2 defines CKD. Patients with eGFR values >/=60 mL/min/1.73 m2 may also have CKD if evidence of persistent proteinuria is present. The original MDRD equation for estimated GFR is not valid for patients less than 18 years of age. Additional information may be found at [email or web address]. 3 BILAT PNEUMONIA, AT FIB, SYNCO 4 Note: Persistent reduction for 3 months or more in an eGFR <60 mL/min/1.73 m2 defines CKD. Patients with eGFR values >/=60 mL/min/1.73 m2 may also have CKD if evidence of persistent proteinuria is present. The original MDRD equation for estimated GFR is not valid for patients less than 18 years of age. Additional information may be found at [email or web address]. 5 Tests: crp,pro bnp Instructions: 6 Note: Persistent reduction for 3 months or more in an eGFR <60 mL/min/1.73 m2 defines CKD. Patients with eGFR values >/=60 mL/min/1.73 m2 may also have CKD if evidence of persistent proteinuria is present. The original MDRD equation for estimated GFR is not valid for patients less than 18 years of age. Additional information may be found at [email or web address]. 7 Note: Persistent reduction for 3 months or more in an eGFR <60 mL/min/1.73 m2 defines CKD. Patients with eGFR values >/=60 mL/min/1.73 m2 may also have CKD if evidence of persistent proteinuria is present. The original MDRD equation for estimated GFR is not valid for patients less than 18 years of age. Additional information may be found at [email or web address]. 8 Note: Persistent reduction for 3 months or more in an eGFR <60 mL/min/1.73 m2 defines CKD. Patients with eGFR values >/=60 mL/min/1.73 m2 may also have CKD if evidence of persistent proteinuria is present. The original MDRD equation for estimated GFR is not valid for patients less than 18 years of age. Additional information may be found at [email or web address]. 9 Note: Persistent reduction for 3 months or more in an eGFR <60 mL/min/1.73 m2 defines CKD. Patients with eGFR values >/=60 mL/min/1.73 m2 may also have CKD if evidence of persistent proteinuria is present. The original MDRD equation for estimated GFR is not valid for patients less than 18 years of age. Additional information may be found at [email or web address]. 10 <10 SQUAMOUS EPITHELIAL CELLS/LPF 11 FEW GRAM POSITIVE COCCI 12 RESPIRATORY ALONSO SPECIMEN IS A MIX OF GRAM NEGATIVE AND GRAM POSITIVE ORGANISMS. SUGGESTIVE OF CONTAMINATION DURING COLLECTION. SUGGEST REPEAT SPECIMEN IF CLINICALLY INDICATED. 13 Elevated levels of HbA1c suggest the need for more aggressive treatment of glycemia. The [place] [employer] recommends that a primary goal of therapy should be a HbA1c of <7% and that physicians should re-evaluate the treatment regimen in patients with HbA1c values consistently >8%. 14 NO GROWTH: FINAL REPORT 15 NO GROWTH: FINAL REPORT 16 BILAT PNEUMONIA,AT [facility] 17 Presumptive negative for L. pneumophila serogroup 1 antigen in urine, suggesting no recent or current infection. Legionnaires' disease cannot be ruled out since other serogroups and species may also cause disease. 18 E11.6521 E55.9 E78.5 19 Note: Persistent reduction for 3 months or more in an eGFR <60 mL/min/1.73 m2 defines CKD. Patients with eGFR values >/=60 mL/min/1.73 m2 may also have CKD if evidence of persistent proteinuria is present. The original MDRD equation for estimated GFR is not valid for patients less than 18 years of age. Additional information may be found at [email or web address]. 20 Elevated levels of HbA1c suggest the need for more aggressive treatment of glycemia. The [place] [employer] recommends that a primary goal of therapy should be a HbA1c of <7% and that physicians should re-evaluate the treatment regimen in patients with HbA1c values consistently >8%. 21 Reference Guidelines*: Desirable: ........... < 200 mg/dL Borderline High: ..... 200-239 mg/dL High: ................ >=240 mg/dL * The National Cholesterol Education Program (NCEP) 22 Reference Guidelines*: Normal: ............. < 150 mg/dL Borderline High: .... 150-199 mg/dL High: ............... 200-499 mg/dL Very High: .......... > 500 mg/dL * Source: National Cholesterol Education Program (NCEP) 23 Reference Guidelines*: Low HDL: ..... < 40 mg/dL Normal: ..... 40-60 mg/dL Desirable: ... > 60 mg/dL *The National Cholesterol Education Program(NCEP) 24 Reference Guidelines*: Optimal:........... <100 mg/dL Near Optimal....... 100-129 mg/dL Borderline High.... 130-159 mg/dL High............... 160-189 mg/dL Very High.......... >=190 mg/dL * Source: National Cholesterol Education Program (NCEP) 25 Vitamin D deficiency has been defined by the [place] [employer] and an Endocrine Society practice guideline as a level of serum 25-OH vitamin D less than 20 ng/mL (1,2). The Endocrine Society went on to further define vitamin D insufficiency as a level between 21 and 29 ng/mL (2). 1. IOM ([place] [employer]). 2010. Dietary reference intakes for calcium and D. [place]: The National Academies Press. 2. Jeanine DYSON, Kenya MORIN, Juliet WILSON, et al. Evaluation, treatment, and prevention of vitamin D deficiency: an Endocrine Society clinical practice guideline. JCEM. 2010; 96(7):1911-30. Performed at: RN - [facility] [address] [id number] Casing Inspector: Felipa Aguero MD, Phone: [phone] 26 PROTEUS MIRABILIS 27 > 100,000 CFU/mL 28 MIXED URETHRAL ALONSO 29 10,000 - 50,000 CFU/mL 30 SENT BY [facility] FOR CHEST PAIN 31 R53.52 32 Note: Persistent reduction for 3 months or more in an eGFR <60 mL/min/1.73 m2 defines CKD. Patients with eGFR values >/=60 mL/min/1.73 m2 may also have CKD if evidence of persistent proteinuria is present. The original MDRD equation for estimated GFR is not valid for patients less than 18 years of age. Additional information may be found at [email or web address]. 33 Trailer Sections Assembler: [id number] 34 I50.32 35 Note: Persistent reduction for 3 months or more in an eGFR <60 mL/min/1.73 m2 defines CKD. Patients with eGFR values >/=60 mL/min/1.73 m2 may also have CKD if evidence of persistent proteinuria is present. The original MDRD equation for estimated GFR is not valid for patients less than 18 years of age. Additional information may be found at [email or web address]. 36 Note: Persistent reduction for 3 months or more in an eGFR <60 mL/min/1.73 m2 defines CKD. Patients with eGFR values >/=60 mL/min/1.73 m2 may also have CKD if evidence of persistent proteinuria is present. The original MDRD equation for estimated GFR is not valid for patients less than 18 years of age. Additional information may be found at [email or web address]. 37 Z13.220 E11.42 E55.9 I50.32 I48.4 38 Reference Guidelines*: Desirable: ........... < 200 mg/dL Borderline High: ..... 200-239 mg/dL High: ................ >=240 mg/dL * The National Cholesterol Education Program (NCEP) 39 Reference Guidelines*: Normal: ............. < 150 mg/dL Borderline High: .... 150-199 mg/dL High: ............... 200-499 mg/dL Very High: .......... > 500 mg/dL * Source: National Cholesterol Education Program (NCEP) 40 Reference Guidelines*: Low HDL: ..... < 40 mg/dL Normal: ..... 40-60 mg/dL Desirable: ... > 60 mg/dL *The National Cholesterol Education Program(NCEP) 41 Reference Guidelines*: Optimal:........... <100 mg/dL Near Optimal....... 100-129 mg/dL Borderline High.... 130-159 mg/dL High............... 160-189 mg/dL Very High.......... >=190 mg/dL * Source: National Cholesterol Education Program (NCEP) 42 Elevated levels of HbA1c suggest the need for more aggressive treatment of glycemia. The [place] [employer] recommends that a primary goal of therapy should be a HbA1c of <7% and that physicians should re-evaluate the treatment regimen in patients with HbA1c values consistently >8%. 43 Vitamin D deficiency has been defined by the [place] [employer] and an Endocrine Society practice guideline as a level of serum 25-OH vitamin D less than 20 ng/mL (1,2). The Endocrine Society went on to further define vitamin D insufficiency as a level between 21 and 29 ng/mL (2). 1. IOM ([place] [employer]). 2010. Dietary reference intakes for calcium and D. [place]: The National Academies Press. 2. Jeanine MF, [place] MORIN, Juliet WILSON, et al. Evaluation, treatment, and prevention of vitamin D deficiency: an Endocrine Society clinical practice guideline. JCEM. 2010; 96(7):1911-30. Performed at: - [facility] [address] [id number] Casing Inspector: Felipa Aguero MD, Phone: [phone] 44 Performed at: [facility] [address] [id number] Casing Inspector: Felipa Aguero MD, Phone: [phone] 45 Note: Persistent reduction for 3 months or more in an eGFR <60 mL/min/1.73 m2 defines CKD. Patients with eGFR values >/=60 mL/min/1.73 m2 may also have CKD if evidence of persistent proteinuria is present. The original MDRD equation for estimated GFR is not valid for patients less than 18 years of age. Additional information may be found at [email or web address]. 46 E11.621 47 Note: Persistent reduction for 3 months or more in an eGFR <60 mL/min/1.73 m2 defines CKD. Patients with eGFR values >/=60 mL/min/1.73 m2 may also have CKD if evidence of persistent proteinuria is present. The original MDRD equation for estimated GFR is not valid for patients less than 18 years of age. Additional information may be found at [email or web address]. 48 Elevated levels of HbA1c suggest the need for more aggressive treatment of glycemia. The [place] Diabetes [employer] recommends that a primary goal of therapy should be a HbA1c of <7% and that physicians should re-evaluate the treatment regimen in patients with HbA1c values consistently >8%. 49 N63.22 E11.621 I50.32 50 Elevated levels of HbA1c suggest the need for more aggressive treatment of glycemia. The [place] Diabetes Association recommends that a primary goal of therapy should be a HbA1c of <7% and that physicians should re-evaluate the treatment regimen in patients with HbA1c values consistently >8%. 51 Note: Persistent reduction for 3 months or more in an eGFR <60 mL/min/1.73 m2 defines CKD. Patients with eGFR values >/=60 mL/min/1.73 m2 may also have CKD if evidence of persistent proteinuria is present. The original MDRD equation for estimated GFR is not valid for patients less than 18 years of age. Additional information may be found at [email or web address]. 52 I50.32 53 Note: Persistent reduction for 3 months or more in an eGFR <60 mL/min/1.73 m2 defines CKD. Patients with eGFR values >/=60 mL/min/1.73 m2 may also have CKD if evidence of persistent proteinuria is present. The original MDRD equation for estimated GFR is not valid for patients less than 18 years of age. Additional information may be found at [email or web address]. 54 Note: Persistent reduction for 3 months or more in an eGFR <60 mL/min/1.73 m2 defines CKD. Patients with eGFR values >/=60 mL/min/1.73 m2 may also have CKD if evidence of persistent proteinuria is present. The original MDRD equation for estimated GFR is not valid for patients less than 18 years of age. Additional information may be found at [email or web address]. 55 A FIB RVR 56 Note: Persistent reduction for 3 months or more in an eGFR <60 mL/min/1.73 m2 defines CKD. Patients with eGFR values >/=60 mL/min/1.73 m2 may also have CKD if evidence of persistent proteinuria is present. The original MDRD equation for estimated GFR is not valid for patients less than 18 years of age. Additional information may be found at [email or web address]. 57 I50.32 58 Note: Persistent reduction for 3 months or more in an eGFR <60 mL/min/1.73 m2 defines CKD. Patients with eGFR values >/=60 mL/min/1.73 m2 may also have CKD if evidence of persistent proteinuria is present. The original MDRD equation for estimated GFR is not valid for patients less than 18 years of age. Additional information may be found at [email or web address]. 59 Note: Persistent reduction for 3 months or more in an eGFR <60 mL/min/1.73 m2 defines CKD. Patients with eGFR values >/=60 mL/min/1.73 m2 may also have CKD if evidence of persistent proteinuria is present. The original MDRD equation for estimated GFR is not valid for patients less than 18 years of age. Additional information may be found at [email or web address]. 60 Values below the stated reference ranges of AST and ALT can be seen in normal populations. Clinical correlation is suggested. 61 Note: Persistent reduction for 3 months or more in an eGFR <60 mL/min/1.73 m2 defines CKD. Patients with eGFR values >/=60 mL/min/1.73 m2 may also have CKD if evidence of persistent proteinuria is present. The original MDRD equation for estimated GFR is not valid for patients less than 18 years of age. Additional information may be found at [email or web address]. 62 Values below the stated reference ranges of AST and ALT can be seen in normal populations. Clinical correlation is suggested. 63 QUERY: Reflex add FT3? Y QUERY: Reflex add FT4? Y 64 NO GROWTH: FINAL REPORT 65 NO GROWTH: FINAL REPORT 66 NO GROWTH: FINAL REPORT 67 NO GROWTH: FINAL REPORT 68 Tests: CRP Instructions: 69 The QuantiFERON TB Gold (in Tube) assay [...] to cdc.gov/tb for further details. Performed at: - [facility] [address] [id number] Casing Inspector: Felipa Aguero MD, Phone: [phone] 70 To be considered positive a specimen should have a TB Ag minus Nil value greater than or equal to 0.35 Iu/mL and in addition the TB Ag minus Nil value must be greater than or equal to 25% of the Nil value. There may be insufficient information in these values to differentiate between some negative and some indeterminate test values. 71 Antibodies to HCV not detected; does not exclude early acute HCV infection. 72 HBsAg not detected; does not exclude the possibility of exposure to or early acute infections with HBV. 73 No reportable results 74 OPERATION/PROCEDURE Exploratory lap., small bowel resection DIAGNOSIS: PART 1: "PORTION OF SMALL INTESTINE, RESECTION": PORTION OF BENIGN HEMORRHAGIC SMALL INTESTINE, CONSISTENT WITH ACUTE INTESTINAL OBSTRUCTION. BOTH SURGICAL MARGINS VIABLE. PART 2: "PARTIAL OMENTUM, EXCISION": PORTION OF BENIGN OMENTUM PARENCHYMA, WITH VASCULAR CONGESTION. HW/clf GROSS Part 1. Received in formalin labeled, [...] x 0.5 cm. seen in the container. Delimber Operator sections are submitted as follows: A=two margins, [...] area. No grossly identifiable tumor is seen. Delimber Operator sections are submitted in two blocks. RON/se MICROSCOPIC Part 1: Sections from both surgical [...] Signed Electronically signed BLADE MAKI MD [id number] 75 Note: Persistent reduction for 3 months or more in an eGFR <60 mL/min/1.73 m2 defines CKD. Patients with eGFR values >/=60 mL/min/1.73 m2 may also have CKD if evidence of persistent proteinuria is present. The original MDRD equation for estimated GFR is not valid for patients less than 18 years of age. Additional information may be found at [email or web address]. 76 Note: Persistent reduction for 3 months or more in an eGFR <60 mL/min/1.73 m2 defines CKD. Patients with eGFR values >/=60 mL/min/1.73 m2 may also have CKD if evidence of persistent proteinuria is present. The original MDRD equation for estimated GFR is not valid for patients less than 18 years of age. Additional information may be found at [email or web address]. 77 Note: Persistent reduction for 3 months or more in an eGFR <60 mL/min/1.73 m2 defines CKD. Patients with eGFR values >/=60 mL/min/1.73 m2 may also have CKD if evidence of persistent proteinuria is present. The original MDRD equation for estimated GFR is not valid for patients less than 18 years of age. Additional information may be found at [email or web address]. Procedures Date Code Description Status 07/27/2018 19283 Brief Emotional/Behav Assessment W/ Scoring Doc Per Completed Standard Inst 06/24/2018 27377 Dual Pacemaker Programming Anayisis, Review And Report Completed 06/22/2018 85565 Eye Exam Est Patient Comprehensive Completed 06/04/2018 29875 Echocardiogram Complete Completed 05/27/2018 27711 Dual Pacemaker Programming Anayisis, Review And Report Completed 05/27/2018 08470 EKG-Tracing And Report Completed 04/21/2018 13521 Asp./Injection major joint Completed 12/30/2017 13844 Asp./Injection major joint Completed 11/26/2017 57302 Dual Pacemaker Programming Anayisis, Review And Report Completed 10/01/2017 09463 Asp./Injection major joint Completed 06/24/2017 12485 Pacemaker Interrogaton Eval In Person Completed 06/18/2017 88909 Eye Exam New Patient Comprehensive Completed 06/10/2017 29253 Pacemaker/Cardio-Defibrillator Remote Data Acquistion Completed 06/10/2017 57711 Remote Interrigation Report Interr. Single, Dual Or Completed Multiple Lead 03/27/2017 87330 Pulse Oximetry Completed 03/27/2017 28040 Pressurized/Non-Pressurized Inhalation Treatment,Acute Completed Obstructio 03/19/2017 55400 EKG-Tracing And Report Completed 12/08/2016 07644 EKG-Tracing And Report Completed 11/17/2016 31576 EKG-Tracing And Report Completed 11/05/2016 51258 Pacemaker/Cardio-Defibrillator Remote Data Acquistion Completed 11/05/2016 02496 Pacemaker/Cardio-Defibrillator Remote Data Acquistion Completed 11/05/2016 38578 Remote Interrigation Report Interr. Single, Dual Or Completed Multiple Lead 11/05/2016 38363 Remote Interrigation Report Interr. Single, Dual Or Completed Multiple Lead 10/20/2016 17886 Dual Pacemaker Programming Anayisis, Review And Report Completed 10/20/2016 75067 Dual Pacemaker Programming Anayisis, Review And Report Completed 09/10/2016 69264 Remote Interrigation Report Interr. Single, Dual Or Completed Multiple Lead 09/10/2016 03349 Remote Interrigation Report Interr. Single, Dual Or Completed Multiple Lead 09/10/2016 35430 Pacemaker/Cardio-Defibrillator Remote Data Acquistion Completed 09/10/2016 71208 Pacemaker/Cardio-Defibrillator Remote Data Acquistion Completed 09/08/2016 51578 EKG-Tracing And Report Completed 06/11/2016 16645 Pacemaker/Cardio-Defibrillator Remote Data Acquistion Completed 06/11/2016 79074 Pacemaker/Cardio-Defibrillator Remote Data Acquistion Completed 06/11/2016 67114 Remote Interrigation Report Interr. Single, Dual Or Completed Multiple Lead 06/11/2016 70792 Remote Interrigation Report Interr. Single, Dual Or Completed Multiple Lead 03/31/2016 61989 EKG-Tracing And Report Completed 03/27/2016 36528 EKG-Tracing And Report Completed 03/27/2016 98032 Dual Pacemaker Programming Anayisis, Review And Report Completed 03/27/2016 53356 Dual Pacemaker Programming Anayisis, Review And Report Completed 02/20/2016 47559 Insert or replace pacemaker with electrodes, atrial & Completed ventricle 02/20/2016 04891 Insert or replace pacemaker with electrodes, atrial & Completed ventricle 01/22/2016 16280 Bronchospasm Provocation Evaluation Multi Spirometric Completed Determinati 01/22/2016 16935 Spirometry Completed 01/11/2016 94392 Echocardiogram Complete Completed 11/21/2015 09356 Radiology, Knee 3 Views Completed 11/21/201513014 Asp./Injection major joint Completed 05/19/2015 67176161 Colonoscopy Completed 02/20/2015 41069 EKG Interpretation And Report Only Completed 11/29/2014 15241 Umbilical hernia repais incarcerted over age 5 Completed 11/29/2014 89817 Enterectomy,Resection Small Intestine/Single Completed Resection/Anastomsis 07/27/2014 39660 Epidural Subarachnoid Injection Lumbar Sacral Completed 05/26/2014 90869 Epidural Subarachnoid Injection Lumbar Sacral Completed 01/10/2014 41111 IV Push Single Or Initial Substance/Drug Completed 09/20/2013 83050 Echocardiogram Complete Completed 01/04/2013 14977 EKG Interpretation And Report Only Completed 11/08/2012 42957 Echocardiogram Complete Completed 07/27/2012 07686 EKG-Tracing And Report Completed 07/20/2012 02593 Echocardiogram Complete Completed 03/24/2011 0000 Due To Insurance Completed 01/14/2011 48156 Anesthesia, Lens Surgery Completed 10/29/2010 48758 EKG-Tracing And Report Completed 11/02/2009 09063 EKG-Tracing And Report Completed 11/02/2009 67022 EKG-Tracing And Report Completed 09/26/2009 32025 EKG Interpretation And Report Only Completed 09/25/2009 16179 Echocardiogram Complete Completed 09/25/2009 43228 EKG Interpretation And Report Only Completed 07/03/2009 09153 Echocardiogram Complete Completed 09/11/200874017 Asp./Injection major joint Completed 08/28/2008 Asp./Injection major joint Completed 08/21/2008 Asp./Injection major joint Completed 08/14/2008 Asp./Injection major joint Completed 08/03/2008 Asp./Injection major joint Completed Encounters Type Date Location Provider Dx Diagnosis Office Visit 11/01/2018 Family Bety Franco, J18.9 Pneumonia, 9:30a Hunter BIRMINGHAM MD unspecified organism J44.1 Chronic obstructive pulmonary disease w (acute) exacerbation E11.621 Type 2 diabetes mellitus with foot ulcer I48.1 Persistent atrial fibrillation Office Visit 10/08/2018 9:30a Family Bety Franco, E11.621 Type 2 diabetes Hunter BIRMINGHAM MD mellitus with foot ulcer J44.1 Chronic obstructive pulmonary disease w (acute) exacerbation I48.1 Persistent atrial fibrillation E78.5 Hyperlipidemia, unspecified E55.9 Vitamin D deficiency, unspecified Office Visit 07/27/2018 3:00p [facility] Medicine Taiwo Avila, F41.9 Anxiety disorder, Hunter BIRMINGHAM MD unspecified Z23 Encounter for immunization Office Visit 06/03/2018 Family Anam J18.9 Pneumonia, 11:15a Medicine [place] Kiersten [facility] unspecified RD organism I50.20 Unspecified systolic (congestive) heart failure R10.30 Lower abdominal pain, unspecified Office Visit 05/27/2018 11:40a Cardiology Office Virginia Hunt Z95.0 Presence of Angelica, ERNESTINE, cardiac FINISHED GOODS INSPECTOR pacemaker I48.1 Persistent atrial fibrillation Office Visit 05/27/2018 10:30a Cardiology Office Baudilio Frost R53.83 Other fatigue B., PA I48.1 Persistent atrial fibrillation Z95.0 Presence of cardiac pacemaker I10 Essential (primary) hypertension Office Visit 04/21/2018 Orthopaedic Cunha, M19.011 Primary 2:00p Office MD Dejah osteoarthritis, right shoulder Office Visit 04/16/2018 [facility] Adryan L89.629 Pressure ulcer of 1:00p Hunter Albert MD left heel, unspecified stage 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, right shoulder I35.0 Nonrheumatic aortic (valve) stenosis I48.4 Atypical atrial flutter Office Visit 02/05/2018 Family Mendieta, E11.42 Type 2 diabetes 1:15p Medicine Hunter Burch [facility] mellitus with RD diabetic polyneuropathy L89.629 Pressure ulcer of left heel, unspecified stage R11.0 Nausea Office Visit 01/07/2018 1:40p Cardiology Office Jose Guan Z95.0 Presence of Ugo Gurrola, [facility] cardiac pacemaker I35.0 Nonrheumatic aortic (valve) stenosis I48.4 Atypical atrial flutter E11.42 Type 2 diabetes mellitus with diabetic polyneuropathy Office Visit 12/11/2017 11:15a [facility] Medicine Bety Gordon RD, MD R05 Cough E11.42 Type 2 diabetes mellitus with diabetic polyneuropathy I48.4 Atypical atrial flutter M19.011 Primary osteoarthritis, right shoulder Office 12/04/2017 [facility] Peter Mendieta18.9 Pneumonia, Visit 1:45p Hunter Holguinferdebshankar, FINISHED GOODS INSPECTOR unspecified organism Office 12/02/2017 Orthopaedic Dejah Cunha MD M19.011 Primary Visit 1:00p Office osteoarthritis, right shoulder M19.012 Primary osteoarthritis, left shoulder Office Visit 11/04/2017 11:00a Mabel Nunn MD E66.01 Morbid (severe) obesity due to excess calories R54 Age-related physical debility R26.2 Difficulty in walking, not elsewhere classified Office Visit 10/01/2017 Orthopaedic Lloyd M19.011 Primary 11:15a Office Samia, PA osteoarthritis, right shoulder Office Visit 09/24/2017 Cardiology Virginia Hunt I50.32 Chronic diastolic 1:40p Office Simonetta, (congestive) heart MSN, FINISHED GOODS INSPECTOR failure I10 Essential (primary) hypertension I48.4 Atypical atrial flutter E78.5 Hyperlipidemia, unspecified Z95.0 Presence of cardiac pacemaker Office Visit 09/16/2017 2:45p Family Cornelius E11.42 Type 2 diabetes Morenita Albert MD mellitus with RD diabetic polyneuropathy E66.01 Morbid (severe) obesity due to excess calories I50.32 Chronic diastolic (congestive) heart failure I10 Essential (primary) hypertension Z95.0 Presence of cardiac pacemaker M06.869 Other specified rheumatoid arthritis, unspecified knee E78.5 Hyperlipidemia, unspecified E11.621 Type 2 diabetes mellitus with foot ulcer Office Visit 09/09/2017 10:30a Physical Medicine Mabel Nunn, E66.01 Morbid (severe) & Infectious MD obesity due to Disease excess calories R54 Age-related physical debility R26.2 Difficulty in walking, not elsewhere classified Office Visit 08/05/2017 11:00a Physical Arline E11.42 Type 2 diabetes Medicine & MD Mabel mellitus with Infectious diabetic Disease polyneuropathy E11.621 Type 2 diabetes mellitus with foot ulcer I50.32 Chronic diastolic (congestive) heart failure R60.0 Localized edema E66.01 Morbid (severe) obesity due to excess calories R26.2 Difficulty in walking, not elsewhere classified R54 Age-related physical debility Office Visit 07/15/2017 3:30p Family Cornelius E11.42 Type 2 diabetes Morenita Albert MD mellitus with RD diabetic polyneuropathy E11.621 Type 2 diabetes mellitus with foot ulcer I50.32 Chronic diastolic (congestive) heart failure N63.22 Unspecified lump in the left breast, upper inner quadrant R60.0 Localized edema Office Visit 06/24/2017 2:00p Cardiology Office Margot, I50.32 Chronic diastolic Marlyss BEmilia, (congestive) heart PA failure I10 Essential (primary) hypertension I49.5 Sick sinus syndrome Z95.0 Presence of cardiac pacemaker I48.4 Atypical atrial flutter Office Visit 06/03/2017 3:15p Family Bety Franco, N63.22 Unspecified lump Hunter BIRMINGHAM MD in the left breast, upper inner quadrant R60.0 Localized edema I50.32 Chronic diastolic (congestive) heart failure E11.621 Type 2 diabetes mellitus with foot ulcer Office Visit 05/22/2017 10:30a Physical Medicine Mabel Nunn, E66.01 Morbid (severe) & Infectious MD obesity due to Disease excess calories L89.629 Pressure ulcer of left heel, unspecified stage M25.569 Pain in unspecified knee R26.2 Difficulty in walking, not elsewhere classified Office Visit 05/06/2017 2:15p Family Bety Franco, I50.32 Chronic diastolic Hunter BIRMINGHAM MD (congestive) heart failure E11.621 Type 2 diabetes mellitus with foot ulcer R60.0 Localized edema M06.869 Other specified rheumatoid arthritis, unspecified knee Office Visit 04/01/2017 3:00p [facility] Bety Franco, J44.9 Chronic Hunter BIRMINGHAM MD obstructive pulmonary disease, unspecified E11.621 Type 2 diabetes mellitus with foot ulcer R60.0 Localized edema I10 Essential (primary) hypertension I48.4 Atypical atrial flutter Office Visit 03/27/2017 Peter Griffiths44.1 Chronic 11:15a Medicine STEPHANIE Ellis obstructive RD pulmonary disease w (acute) exacerbation L03.116 Cellulitis of left lower limb I10 Essential (primary) hypertension E66.01 Morbid (severe) obesity due to excess calories Office Visit 03/19/2017 Cardiology Virginia Hunt I50.32 Chronic diastolic 3:00p Office ERNESTINE Dominguez, (congestive) heart FINISHED GOODS INSPECTOR failure I48.4 Atypical atrial flutter I49.5 Sick sinus syndrome Z95.0 Presence of cardiac pacemaker Office Visit 02/27/2017 1:30p Family Medicine Adryan, Bety, E11.621 Type 2 diabetes [place] MD mellitus with foot ulcer I50.32 Chronic diastolic (congestive) heart failure G47.9 Sleep disorder, unspecified I10 Essential (primary) hypertension R60.0 Localized edema Office Visit 02/16/2017 Family Anam, M79.606 Pain in leg, 1:45p Medicine Hunter Burch FINISHED GOODS INSPECTOR unspecified RD J43.9 Emphysema, unspecified R53.83 Other fatigue E11.8 Type 2 diabetes mellitus with unspecified complications Office Visit 02/06/2017 Cardiology Virginia Hunt I50.32 Chronic diastolic 11:00a Office ERNESTINE Dominguez, (congestive) heart FINISHED GOODS INSPECTOR failure I48.0 Paroxysmal atrial fibrillation I48.4 Atypical atrial flutter I49.5 Sick sinus syndrome Z95.0 Presence of cardiac pacemaker E66.01 Morbid (severe) obesity due to excess calories Office Visit 01/22/2017 Surgical Office Franky R93.5 Abn findings on dx 2:15p Wilfredo Tyler, imaging of abd M.Radha regions, inc retroperiton Office Visit 12/08/2016 Cardiology Virginia Hunt I48.0 Paroxysmal atrial 1:00p Office ERNESTINE Dominguez, fibrillation FINISHED GOODS INSPECTOR I50.32 Chronic diastolic (congestive) heart failure I49.5 Sick sinus syndrome I48.4 Atypical atrial flutter Z95.0 Presence of cardiac pacemaker G47.9 Sleep disorder, unspecified Office Visit 11/17/2016 2:10p Cardiology Office Margot, I48.0 Paroxysmal atrial Marlyss B., PA fibrillation R53.83 Other fatigue I50.32 Chronic diastolic (congestive) heart failure Z95.0 Presence of cardiac pacemaker Office Visit 11/03/2016 Cardiology Jose Guan I48.0 Paroxysmal atrial 2:46p Office Ugo Gurrola, [facility] fibrillation Office Visit 10/31/2016 Physical Paige Banda, Dwight03.115 Cellulitis of 11:53a Medicine & M.DEmilia right lower limb Infectious Disease Office Visit 09/08/2016 Cardiology Virginia Hunt I48.4 Atypical atrial 2:20p Office ERNESTINE Dominguez, flutter FINISHED GOODS INSPECTOR I50.32 Chronic diastolic (congestive) heart failure I49.5 Sick sinus syndrome Z95.0 Presence of cardiac pacemaker Office Visit 05/12/2016 1:00p Cardiology Office Virginia Hunt I48.3 Typical atrial ERNESTINE Dominguez, flutter FINISHED GOODS INSPECTOR I49.5 Sick sinus syndrome I50.32 Chronic diastolic (congestive) heart failure Z95.0 Presence of cardiac pacemaker Office Visit 04/24/2016 Loki Cruz, D50.9 Iron deficiency 1:30p anemia, unspecified Office Visit 04/07/2016 Cardiology Virginia Hunt I50.32 Chronic diastolic 1:30p Office ERNESTINE Dominguez, (congestive) FINISHED GOODS INSPECTOR heart failure I49.5 Sick sinus syndrome Z95.0 Presence of cardiac pacemaker I48.3 Typical atrial flutter R00.1 Bradycardia, unspecified L03.818 Cellulitis of other sites Office Visit 03/31/2016 Cardiology Virginia Hunt I50.32 Chronic diastolic 11:00a Office ERNESTINE Dominguez, (congestive) heart FINISHED GOODS INSPECTOR failure I49.5 Sick sinus syndrome Z95.0 Presence of cardiac pacemaker I48.3 Typical atrial flutter R00.1 Bradycardia, unspecified L03.818 Cellulitis of other sites S91.235S Pnctr w/o fb of left lesser toe(s) w damage to nail, sequela Office Visit 03/27/2016 Cardiology Virginia Hunt I50.32 Chronic diastolic 11:10a Office ERNESTINE Dominguez, (congestive) heart FINISHED GOODS INSPECTOR failure I48.3 Typical atrial flutter R00.1 Bradycardia, unspecified Z95.0 Presence of cardiac pacemaker L03.818 Cellulitis of other sites Office Visit 02/20/2016 2:30p Operating Room Khushi Wilkins49.5 Sick sinus Christopher H., syndrome M.D. R00.1 Bradycardia, unspecified Office Visit 02/19/2016 4:05p Physical Medicine Paige Banda I49.5 Sick sinus & Infectious M.D. syndrome Disease R00.1 Bradycardia, unspecified Office Visit 02/15/2016 9:06a Cardiology Office Jose Guan I49.5 Sick sinus Rasheed. MEarl., FACC syndrome R00.1 Bradycardia, unspecified I48.0 Paroxysmal atrial fibrillation Office Visit 12/21/2015 2:30p GI Herminio Hinton MD D50.9 Iron deficiency anemia, unspecified K22.70 Plummer's esophagus without dysplasia K57.30 Dvrtclos of lg int w/o perforation or abscess w/o bleeding K21.9 Gastro-esophageal reflux disease without esophagitis Office Visit 11/21/2015 Orthopaedic [place]po, M17.11 Unilateral primary 10:00a Office Ugo Schwab osteoarthritis, right knee M25.561 Pain in right knee Office Visit 04/03/2015 1:20p Cardiology Jose Guan 428.0 Congestive Heart Office Ugo Gurrola, FACC Failure Unspecified 427.31 Atrial Fibrillation Office Visit 02/20/2015 11:25a Cardiology Jose Guan 428.0 Congestive Heart Office Ugo Gurrola, FACC Failure Unspecified 427.89 Cardiac Dysrhythmia Other Office Visit 11/29/2014 4:48p Ady Young 553.20 Hernia Ventral [facility] J., DO Unspec Center 560.9 Intestinal Obstruction Unspec Office Visit 11/14/2014 11:59a Primary Care Paige Banda 428.0 Congestive Heart Office Ugo Failure Unspecified 496 COPD Airway Obstruction Chronic Not Class Elsewhere Office Visit 11/13/2014 1:44p Vega Bajatiffany Ta 486 Pneumonia Organism [facility] MD Chandler Unspec Center Office Visit 10/09/2014 5:23p Robb Cortes 428.0 Congestive Heart [facility] Ugo Parry Failure Center Unspecified 491.21 Bronchitis Obstructive Chronic W/Acute Exacerbation Office Visit 08/04/2014 Cardiology Jose Guan 428.0 Congestive Heart 12:27p Office Ugo Gurrola, FACC Failure Unspecified Office Visit 08/04/2014 Ady Young 428.21 Systolic Heart 9:31a [facility] J., DO Failure Acute Center 486 Pneumonia Organism Unspec Office Visit 06/26/2014 3:20p Surgical Office Sam Marquez MD 724.2 Thomas 724.00 Spinal Stenosis Unsep Region Office Visit 04/24/2014 3:20p Surgical Office Sam Marquez 724.2 Thomas ROBERTS Office Visit 04/03/2014 9:01a Robb Ruth, 682.3 Cellulitis & [facility] Ugo [place] Abscess Upper Arm Center & Forearm 682.6 Cellulitis & Abscess Leg Except Foot Office Visit 01/10/2014 11:20a Cardiology Office Jose Guan, 782.3 Edema M.DEmilia, FACC 427.31 Atrial Fibrillation Office Visit 11/10/2013 10:06a [place] ShakirAdy 682.9 Cellulitis & Regional J., DO Abscess [facility] Site 250.00 Diabetes Mellitus W/O Compl Type II Or Unspec Controlled 401.9 Hypertension Unspec Office Visit 11/10/2013 1:00p Cardiology Jose Guan 428.0 Congestive Heart Office Ugo Gurrola, FACC Failure Unspecified 782.3 Edema 427.31 Atrial Fibrillation 401.1 Hypertension Benign Office Visit 09/20/2013 2:19p Megha Blackwell, 428.0 Congestive Heart Regional Ugo Failure [facility] Center Unspecified 427.89 Cardiac Dysrhythmia Other 782.3 Edema Office Visit 09/20/2013 12:19p Cardiology Jose Guan 428.0 Congestive Heart Office Ugo Gurrola, FACC Failure Unspecified Office Visit 08/02/2013 3:40p Cardiology Jose Guan 428.0 Congestive Heart Office Ugo Gurrola, FACC Failure Unspecified 427.31 Atrial Fibrillation Office Visit 03/14/2013 3:30p Cardiology Virginia Hunt 428.0 Congestive Heart Office ERNESTINE Dominguez, Failure FINISHED GOODS INSPECTOR Unspecified 427.31 Atrial Fibrillation 401.1 Hypertension Benign 278.01 Obesity Morbid 250.02 Diabetes Mellitus W/O Compl Type II Or Unspec Type Uncontrol Office Visit 11/09/2012 3:36p Cardiology Office Conner Brown 786.05 Rona MD, PhD Breath Office Visit 09/02/2012 2:30p Cardiology Office Roge 427.31 Atrial Jose Gurrola Fibrillation M.Radha, FACC 428.0 Congestive Heart Failure Unspecified 401.1 Hypertension Benign 250.00 Diabetes Mellitus W/O Compl Type II Or Unspec Controlled 327.23 Obstructive Sleep Apnea Adult & Pediatric Office Visit 08/20/2012 3:10p Cardiology Virginia Hunt 428.0 Congestive Heart Office ERNESTINE Dominguez, Failure FINISHED GOODS INSPECTOR Unspecified 401.1 Hypertension Benign 427.31 Atrial Fibrillation 250.00 Diabetes Mellitus W/O Compl Type II Or Unspec Controlled 278.01 Obesity Morbid 327.23 Obstructive Sleep Apnea Adult & Pediatric Office Visit 07/27/2012 2:20p Cardiology Jose Guan 428.0 Congestive Heart Office Ugo Gurrola, [facility] Failure Unspecified 401.1 Hypertension Benign 250.00 Diabetes Mellitus W/O Compl Type II Or Unspec Controlled 427.31 Atrial Fibrillation Office Visit 07/20/2012 Cardiology Conner Brown 428.0 Congestive Heart 4:40p Office MD Wilmer, PhD Failure Unspecified Office Visit 10/29/2010 Cardiology Virginia Hunt 794.31 Electrocardiogram 2:40p Office Angelica, (ECG) (EKG) Abnormal MSN, FINISHED GOODS INSPECTOR 401.1 Hypertension Benign 272.4 Hyperlipidemia Other Unspec 786.05 Shortness Of Breath 327.23 Obstructive Sleep Apnea Adult & Pediatric Office 11/02/2009 Cardiology Virginia Hunt 794.31 Electrocardiogram Visit 1:50p Office ERNESTINE Dominguez, (ECG) (EKG) Abnormal FINISHED GOODS INSPECTOR 401.1 Hypertension Benign 272.4 Hyperlipidemia Other Unspec 786.05 Shortness Of Breath 327.23 Obstructive Sleep Apnea Adult & Pediatric 278.01 Obesity Morbid Plan of Treatment Future Appointment(s):12/17/2018 11:15 am - Bety [facility]elius MD at [facility]12/13/2018 11:00 am - Baudilio Frost PA at Cardiology Uyqhsw9612/09/2018 11:00 am - Virginia Hunt, ERNESTINE, FINISHED GOODS INSPECTOR at Cardiology Qyjnlp6106/23/2019 3:30 pm - Loki Villalobos MD at Hdbfmkjcwmwka43/18/2019 - Bety Cornelius MDJ18.9 Pneumonia, unspecified organismComments:You sound good today;finish you antibiotics and prednisone;use all resp. meds as prev.;I called inprobiotics for you; eat yogurt also.J44.1 Chronic obstructive pulmonary disease with (acute) exacerbationComments:plan as ddxeyC14.621 Type 2 diabetes mellitus with foot ulcerComments:Your last AIC was 6.1, that;s excellent!get wound care tx 3x/week until ulcer is goneFollow up:you have an appointment already for 12/17/18 at 11:15.I48.1 Persistent atrial fibrillationComments:f/u with cardiology next month; no change in medications.AllNew Medication:Probiotic Acidophilus - 1 ca by mouth once a day
[2018-12-01 12:57] VITALS: BP 110/50
--- NOTE | 2018-12-01 13:26 | UC ---
Respiratory Complaint HPI - HPI Summary HPI Summary: 83-year-old male comes in with a chief complaint of about a week of upper respiratory tract infection symptoms. Discussed cough feels slightly ill. Feel short of breath. This chest congestion. Shortness breath is worse when he lays down. He also has a history of CHF and COPD.'s albuterol and helps also with the shortness of breath. He also has bilateral pedal edema worse on the right. On the right his anterior cooney is erythematous and warm to touch. Call primary care doctor told but symptoms and was recommended that he come here to get further evaluation. Patient is on diuretics. No complaint of any chest pain. - History of Current Complaint Chief Complaint: UCRespiratory Stated Complaint: RIGHT LEG SKIN CONCERN,COUGH Time Seen by Provider: 12/01/18 13:04 Pain Intensity: 0 - Allergies/Home Medications Allergies/Adverse Reactions: Allergies Allergy/AdvReac Type Severity Reaction Status Date / Time levofloxacin Allergy Unknown Verified 12/01/18 12:48 Reaction Details lisinopril Allergy Unknown Verified 12/01/18 12:48 Reaction Details ALOE VESTA SOAP Allergy Unknown Uncoded 12/01/18 12:48 Reaction Details PMH/Surg Hx/FS Hx/Imm Hx Previously Healthy: Yes Endocrine History: Dyslipidemia Cardiovascular History: Hypertension Respiratory History: COPD - Surgical History Surgical History: Yes Surgery Procedure, Year, and Place: colon/rupture. 1974--TEETH EXTRACTION. L lower leg - Family History Known Family History: Positive: Cardiac Disease, Hypertension - Social History Alcohol Use: None Substance Use Type: None Smoking Status (MU): Former Smoker Have You Smoked in the Last Year: No When Did the Patient Quit Smoking/Using Tobacco: 2001 - Immunization History Vaccination Up to Date: Yes Review of Systems All Other Systems Reviewed And Are Negative: Yes Constitutional: Positive: Negative Skin: Positive: Rash Eyes: Positive: Negative ENT: Positive: Nasal Discharge, Sinus Congestion Respiratory: Positive: Shortness Of Breath, Cough, Other - see hpi Cardiovascular: Positive: Negative Gastrointestinal: Positive: Negative Motor: Positive: Negative Neurovascular: Positive: Negative Musculoskeletal: Positive: Calf Tenderness, Edema Neurological: Positive: Negative Psychological: Positive: Negative Is Patient Immunocompromised?: No Physical Exam Triage Information Reviewed: Yes Appearance: Well-Appearing, No Pain Distress, Well-Nourished Vital Signs: Initial Vital Signs Temp 98.7 F 12/01/18 12:52 Pulse 59 12/01/18 12:52 Resp 20 12/01/18 12:52 BP 110/50 12/01/18 12:52 Pulse Ox 95 12/01/18 12:52 Vital Signs Reviewed: Yes Eye Exam: Normal Eyes: Positive: Conjunctiva Clear ENT: Positive: Pharynx normal Neck exam: Normal Neck: Positive: Supple Respiratory: Positive: No respiratory distress, Crackles - b/l Cardiovascular: Positive: RRR Musculoskeletal: Positive: Edema @ - b/l Neurological: Positive: Alert, Muscle Tone Normal Psychological Exam: Normal Psychological: Positive: Age Appropriate Behavior Skin: Positive: Other - erythema rt anterior lower leg. NL DP pulse rt foot. NL cap refill. NL sensation. Respiratory Course/Dx - Course Course Of Treatment: Patient Name: IDALIA GUMSAN Medical Record#: [id number] Ordering Physician: Fred Wheatley MD Acct.#: [id number] : 1935 Age: 83 Sex: M Location: [facility]RG[facility] Exam Date: 12/01/186 ADM Status: REG ER Order Information: CHEST PA LAT 2 VWS Accession Number: [id number] CPT: 00168 HISTORY: cough,sob,Hx COPD/CHF/Pneumonia COMPARISONS: November 13, 2017 VIEWS: 3: Frontal and lateral views of the chest. FINDINGS: CARDIOMEDIASTINAL SILHOUETTE: The cardiomediastinal silhouette is stable. ANIKET: The aniket are normal. PLEURA: The costophrenic angles are sharp. No pleural abnormalities are noted. LUNG PARENCHYMA: There is hyperinflation with flattening of the diaphragm and expansion of the AP diameter of the chest. ABDOMEN: The upper abdomen is clear. There is no subphrenic gas. BONES AND SOFT TISSUES: No bone or soft tissue abnormalities are noted. OTHER: A left-sided pacemaker is noted. IMPRESSION: HYPERINFLATION, CONSISTENT WITH COPD. NO ACTIVE CARDIOPULMONARY DISEASE. <Electronically signed by Navdeep Yun MD in OV> 12/01/18 3317 I discussed the x-rays with the patient. No evidence of congestive heart failure or pneumonia. The overall plan is to treat with an antibiotic for both the leg and his upper respiratory tract infection. CBC CMP and BNP results are all pending. Patient was unable to do the ultrasound for his right lower leg to rule out DVT. It came down to mobility issue where he's unable to get up on the table. I let him know that if this leg continues to give him problem he needs to the emergency department where they can facilitate the venous Doppler. Patient is on a blood thinner. Patient's follow-up his primary care doctor if anything worsens with shortness of breath or any other symptoms he is to go the emergency department. - Differential Dx/Diagnosis Provider Diagnosis: Upper respiratory infection, Cellulitis of right anterior lower leg, Edema Discharge - Sign-Out/Discharge Documenting (check all that apply): Patient Departure All imaging exams completed and their final reports reviewed: Yes - Discharge Plan Condition: Stable Disposition: HOME Prescriptions: Cephalexin CAP* [Keflex CAP*] 500 mg PO TID #30 cap Patient Education Materials: Upper Respiratory Infection (ED), Cellulitis (ED) , Leg Edema (ED) Referrals: Bety Cornelius MD [Primary Care Provider] - Additional Instructions: FOLLOW UP WITH YOUR DOCTOR. GO TO THE EMERGENCY DEPARTMENT IF YOUR CONDITION WORSENS; FEVER, SHORTNESS OF BREATH, YOU FEEL ILL OR ANY QUESTIONS OR CONCERNS. - Billing Disposition and Condition Condition: STABLE Disposition: Home
[2018-12-01 19:02] LABS: ABS Basophils 0 10^3/ul (0-0.2); ABS Eosinophils 0.2 10^3/ul (0-0.6); ABS Monocytes 1.1 10^3/ul (0-0.8); ABS Neutrophils 3.3 10^3/ul (1.5-7.7); ABS Nucleated RBC 0 10^3/ul; Eosinophil % 2.9 %; Hematocrit 36 % (36-46); Hemoglobin 11.5 g/dL (14.0-18.0); Lymphocyte % 17.6 %; Mean Corpuscular HGB Conc 32 g/dL (31-36); Mean Corpuscular Hemoglobin 31 pg (27-31); Mean Corpuscular Volume 94 fL (80-94); Mean Platelet Volume 9.1 fL (7.4-10.4); Nucleated Red Blood Cells % 0; Platelet Count 175 10^3/uL (150-450); Red Blood Count 3.77 10^6 /uL (4.18-5.48); Red Cell Distribution Width 16 % (10.5-15); White Blood Count 5.6 10^3/uL (3.5-10.8)
[2018-12-01 19:04] LABS: Albumin 3.8 g/dL (3.2-5.2); Calcium 8.9 mg/dL (8.6-10.3); Potassium 4.9 mmol/L (3.5-5.0); Total Bilirubin 0.5 mg/dL (0.2-1.0)
[2018-12-01 19:10] LABS: Albumin/Globulin Ratio 1.3 (1-3); EGFR African American 67.1 (>60); EGFR Non-African American 55.4 (>60); Globulin 2.9 g/dL (2-4); Total Protein 6.7 g/dL (6.4-8.9)
--- NOTE | 2018-12-02 07:31 | ED ---
Progress - Progress Note Progress Note: Patient with anemia, abnormal renal function, and elevated BNP on labs. Recommend he go to the ER for further work up and evaluation. Please call to inform patient. Course/Dx - Diagnoses Provider Diagnoses: Upper respiratory infection, Cellulitis of right anterior lower leg, Edema Discharge - Sign-Out/Discharge Documenting (check all that apply): Patient Departure All imaging exams completed and their final reports reviewed: Yes - Discharge Plan Condition: Stable Disposition: HOME Prescriptions: Cephalexin CAP* [Keflex CAP*] 500 mg PO TID #30 cap Patient Education Materials: Cellulitis (ED), Upper Respiratory Infection (ED) , Leg Edema (ED) Referrals: Bety Cornelius MD [Primary Care Provider] - Additional Instructions: FOLLOW UP WITH YOUR DOCTOR. GO TO THE EMERGENCY DEPARTMENT IF YOUR CONDITION WORSENS; FEVER, SHORTNESS OF BREATH, YOU FEEL ILL OR ANY QUESTIONS OR CONCERNS. - Billing Disposition and Condition Condition: STABLE Disposition: Home
== END 2018-12-01 14:26 | disposition home or self-care (01) ==
LOC: UCCORT 11:59
DX: J06.9 Acute upper respiratory infection, unspecified (principal); L03.115 Cellulitis of right lower limb; R60.9 Edema, unspecified; I50.9 Heart failure, unspecified; J44.9 Chronic obstructive pulmonary disease, unspecified; Z87.891 Personal history of nicotine dependence
CPT/HCPCS: 36415; 71046; 80053; 83880; 85025; 99212; G0463

== ENCOUNTER 2021-06-10 14:50 | Inpatient (IN) ==
[2021-06-10 15:48] LABS: ABS Lymphocytes 0.3 10^3/ul (1.0-4.8); ABS Monocytes 0.8 10^3/ul (0-0.8); ABS Neutrophils 12.1 10^3/ul (1.5-7.7); Hematocrit 31 % (42-52); Hemoglobin 9.9 g/dL (14.0-18.0); Lymphocyte % 2.3 %; Mean Corpuscular HGB Conc 32 g/dL (31-36); Mean Corpuscular Hemoglobin 32 pg (27-31); Mean Corpuscular Volume 99 fL (80-94); Mean Platelet Volume 8.2 fL (7.4-10.4); Platelet Count 145 10^3/uL (150-450); Red Blood Count 3.12 10^6 /uL (4.18-5.48); Red Cell Distribution Width 16 % (10-15); White Blood Count 13.3 10^3/uL (3.5-10.8)
[2021-06-10 15:50] LABS: PCO2 Arterial 53 mmHg (35-45); PO2 Arterial 85 mmHg (80-100)
[2021-06-10 16:15] LABS: Troponin I 0.15 ng/mL (<0.03)
[2021-06-10 16:28] LABS: ALT 14 U/L (7-52); AST 25 U/L (13-39); Albumin 3.8 g/dL (3.2-5.2); Alkaline Phosphatase 82 U/L (35-149); Blood Urea Nitrogen 74 mg/dL (6-24); CO2 Carbon Dioxide 28 mmol/L (22-32); Calcium 9.3 mg/dL (8.6-10.3); Chloride 102 mmol/L (101-111); Glucose 140 mg/dL (70-100); Sodium 136 mmol/L (135-145); Total Protein 7.8 g/dL (6.4-8.9)
[2021-06-10 16:35] LABS: Anion Gap 6 mmol/L (2-11)
[2021-06-10] MEDS ORDERED: CALCIUM GLUCONATE 1GM/50ML NS 1 GM/50 ML BAG IV ONE (16:48)
[2021-06-10] MEDS ORDERED: Albuterol 2.5mg/3 ml (0.083%) NEB.SOLN INH ONE (16:48)
[2021-06-10] MEDS ORDERED: Dextrose 50% Syringe 50 ml 25 GM/50 ML SYRINGE IV PUSH ONE ×2 (16:48→16:50)
[2021-06-10 17:10] LABS: Urine Appearance Clear; Urine Bilirubin Negative (Negative); Urine Blood Negative (Negative); Urine Color Yellow; Urine Glucose Negative (Negative); Urine Ketones Trace (Negative); Urine Nitrite Negative (Negative); Urine Protein Negative (Negative); Urine Specific Gravity 1.015 (1.002-1.030); Urine Urobilinogen Negative (Negative)
[2021-06-10] MEDS ORDERED: ceFAZolin 2 GM in NS PREMIX 2 GM/100 ML BAG IVPB ONE (18:19)
[2021-06-10] MEDS ORDERED: Albuterol 2.5mg/3 ml (0.083%) NEB.SOLN INH PRN (18:25)
[2021-06-10] MEDS ORDERED: NS 0.9% 1000 ml BAG 1,000 ML IV SCH (18:30)
[2021-06-10] MEDS ORDERED: Dextrose 50% Syringe 50 ml 25 GM/50 ML SYRINGE IV PUSH PRN (18:33)
[2021-06-10 18:36] LABS: Potassium 5.3 mmol/L (3.5-5.0)
[2021-06-10 19:24] LABS: ABS Lymphocytes 0.6 10^3/ul (1.0-4.8); ABS Monocytes 0.7 10^3/ul (0-0.8); ABS Neutrophils 10.3 10^3/ul (1.5-7.7); Hematocrit 30 % (42-52); Hemoglobin 9.6 g/dL (14.0-18.0); Lymphocyte % 4.9 %; Mean Corpuscular HGB Conc 32 g/dL (31-36); Mean Corpuscular Hemoglobin 32 pg (27-31); Mean Corpuscular Volume 100 fL (80-94); Mean Platelet Volume 8.2 fL (7.4-10.4); Platelet Count 139 10^3/uL (150-450); Red Blood Count 2.97 10^6 /uL (4.18-5.48); Red Cell Distribution Width 15 % (10-15); White Blood Count 11.5 10^3/uL (3.5-10.8)
[2021-06-10 19:32] LABS: Activated Partial Thrombo Time 40.7 seconds (26.0-38.0); INR 2.38 (0.86-1.15)
[2021-06-10 19:36] LABS: Rapid COVID-19 Molecular Undetected (Undetected)
[2021-06-10 20:28] LABS: Troponin I 0.16 ng/mL (<0.03)
[2021-06-10] MEDS: Albuterol/Ipratropium NEB.SOL (2.5/0.5 MG) 3 ML NEB.SOLN INH SCH (21:36)
[2021-06-10 22:19] LABS: Calcium 9.2 mg/dL (8.6-10.3)
[2021-06-10] MEDS: Heparin 5000 UNITS/ML 1 mL VIAL SUBCUT SCH (22:46)
[2021-06-10] MEDS: methylPREDNISolone SOD 40 mg/ml 1 ml VIAL IV SCH (22:46)
[2021-06-10 23:02] LABS: Folate > 20.00 ng/mL (5.90-24.80); Vitamin B12 305 pg/mL (180-914)
[2021-06-11 00:32] LABS: Calcium 9.2 mg/dL (8.6-10.3)
[2021-06-11 00:33] LABS: Potassium 5.7 mmol/L (3.5-5.0)
[2021-06-11] MEDS: Albuterol/Ipratropium NEB.SOL (2.5/0.5 MG) 3 ML NEB.SOLN INH SCH ×2 (01:09→07:15)
[2021-06-11] MEDS: ceFAZolin 1 GM ADVAN 1 GM in NS 0.9% 50 ML 50 ML IVPB SCH ×2 (04:08→11:00)
[2021-06-11 04:49] LABS: ABS Lymphocytes 0.3 10^3/ul (1.0-4.8); ABS Monocytes 0.2 10^3/ul (0-0.8); ABS Neutrophils 9.9 10^3/ul (1.5-7.7); Hematocrit 29 % (42-52); Hemoglobin 9.4 g/dL (14.0-18.0); Lymphocyte % 2.8 %; Mean Corpuscular HGB Conc 33 g/dL (31-36); Mean Corpuscular Hemoglobin 33 pg (27-31); Mean Corpuscular Volume 100 fL (80-94); Mean Platelet Volume 8.6 fL (7.4-10.4); Nucleated Red Blood Cells % 0.1; Platelet Count 122 10^3/uL (150-450); Red Blood Count 2.87 10^6 /uL (4.18-5.48); Red Cell Distribution Width 15 % (10-15); White Blood Count 10.4 10^3/uL (3.5-10.8)
[2021-06-11 05:10] LABS: Calcium 8.9 mg/dL (8.6-10.3)
[2021-06-11 05:28] LABS: Potassium 5.9 mmol/L (3.5-5.0)
[2021-06-11] MEDS: Heparin 5000 UNITS/ML 1 mL VIAL SUBCUT SCH (06:33)
[2021-06-11 08:15] LABS: Troponin I 0.13 ng/mL (<0.03)
[2021-06-11] MEDS ORDERED: Furosemide 20 mg/2 ml IV VIAL IV SLOW PU ONE (08:53)
[2021-06-11] MEDS ORDERED: Perflutren Lipid Microsphere 3 ML VIAL ONE ×2 (08:59→11:31)
[2021-06-11] MEDS: methylPREDNISolone SOD 40 mg/ml 1 ml VIAL IV SCH (09:16)
[2021-06-11] MEDS ORDERED: Albuterol 2.5mg/3 ml (0.083%) NEB.SOLN INH PRN (09:38)
[2021-06-11] MEDS ORDERED: Fluorometholone 0.1% OPTH.SUS 5 ML BTL BOTH EYES PRN (09:38)
[2021-06-11] MEDS: Albuterol HFA INHALER 8 gm MDI INH SCH ×3 (13:06→22:12)
[2021-06-11] MEDS ORDERED: cefTRIAXone 1 gm/50 mL NS BAG 1 GM/50 ML BAG IVPB SCH (14:00)
[2021-06-11] MEDS ORDERED: Enoxaparin 30 MG/0.3 ML SYR SUBCUT SCH (14:00)
[2021-06-11 14:04] LABS: Potassium 5.7 mmol/L (3.5-5.0)
[2021-06-11] MEDS ORDERED: SODIUM ZIRCONIUM CYCLOSILICATE 10 GM PACKET PO ONE (14:53)
[2021-06-12] MEDS: Albuterol HFA INHALER 8 gm MDI INH SCH ×4 (01:00→19:21)
[2021-06-12] MEDS: Tiotropium Brom/Olodaterol MDI INH SCH (07:37)
[2021-06-12] MEDS: Isosorbide Mononit ER 30mg TAB PO SCH (09:27)
[2021-06-12 09:42] LABS: Calcium 8.8 mg/dL (8.6-10.3); Potassium 4.9 mmol/L (3.5-5.0)
[2021-06-12] MEDS: Linezolid 600 MG/ 300 ML IVPB SCH ×2 (13:27→22:27)
[2021-06-13] MEDS: Albuterol HFA INHALER 8 gm MDI INH SCH ×4 (01:35→19:12)
[2021-06-13] MEDS: Tiotropium Brom/Olodaterol MDI INH SCH (08:09)
[2021-06-13] MEDS: Isosorbide Mononit ER 30mg TAB PO SCH (10:33)
[2021-06-13] MEDS: Linezolid 600 MG/ 300 ML IVPB SCH ×2 (12:07→21:09)
[2021-06-13] MEDS: Ondansetron 4 mg VIAL 2 MG/ML 2 ml VIAL IV PRN (20:55)
[2021-06-14] MEDS: Albuterol HFA INHALER 8 gm MDI INH SCH ×4 (02:15→21:19)
[2021-06-14 05:51] LABS: ABS Lymphocytes 0.6 10^3/ul (1.0-4.8); ABS Monocytes 0.6 10^3/ul (0-0.8); Eosinophil % 0.4 %; Hematocrit 26 % (42-52); Hemoglobin 8.6 g/dL (14.0-18.0); Lymphocyte % 9.9 %; Mean Corpuscular HGB Conc 33 g/dL (31-36); Mean Corpuscular Hemoglobin 32 pg (27-31); Mean Corpuscular Volume 98 fL (80-94); Mean Platelet Volume 8.6 fL (7.4-10.4); Nucleated Red Blood Cells % 0.1; Platelet Count 117 10^3/uL (150-450); Red Blood Count 2.66 10^6 /uL (4.18-5.48); Red Cell Distribution Width 15 % (10-15); White Blood Count 6.3 10^3/uL (3.5-10.8)
[2021-06-14 06:17] LABS: Calcium 8.6 mg/dL (8.6-10.3); Potassium 4.7 mmol/L (3.5-5.0)
[2021-06-14] MEDS: Tiotropium Brom/Olodaterol MDI INH SCH (08:24)
[2021-06-14] MEDS: Isosorbide Mononit ER 30mg TAB PO SCH (11:59)
[2021-06-14] MEDS: Linezolid 600 MG/ 300 ML IVPB SCH ×2 (12:20→20:59)
[2021-06-14 15:30] LABS: C Reactive Protein 34.43 mg/L (<8.01)
[2021-06-14] MEDS ORDERED: Propofol 10 MG/ML 20 ML BTL ONE (15:32)
[2021-06-14] MEDS ORDERED: Lidocaine 2% PF 5 ML VIAL ONE (15:32)
[2021-06-14 16:07] LABS: C Reactive Protein 168.15 mg/L (<8.01)
[2021-06-15] MEDS: Albuterol HFA INHALER 8 gm MDI INH SCH ×4 (02:04→20:50)
[2021-06-15] MEDS: Tiotropium Brom/Olodaterol MDI INH SCH (08:38)
[2021-06-15] MEDS: Isosorbide Mononit ER 30mg TAB PO SCH (10:07)
[2021-06-15] MEDS: Linezolid 600 MG/ 300 ML IVPB SCH ×2 (10:09→22:22)
[2021-06-15 10:39] LABS: Hematocrit 28 % (42-52); Mean Corpuscular HGB Conc 33 g/dL (31-36); Mean Corpuscular Hemoglobin 32 pg (27-31); Mean Corpuscular Volume 99 fL (80-94); Mean Platelet Volume 8.3 fL (7.4-10.4); Platelet Count 130 10^3/uL (150-450); Red Blood Count 2.77 10^6 /uL (4.18-5.48); Red Cell Distribution Width 15 % (10-15); White Blood Count 6.4 10^3/uL (3.5-10.8)
[2021-06-15 10:43] LABS: ABS Eosinophils 0.4 10^3/ul (0-0.6); ABS Monocytes 0.7 10^3/ul (0-0.8); ABS Neutrophils 4.2 10^3/ul (1.5-7.7); Eosinophil % 6.3 %; Lymphocyte % 15.8 %
[2021-06-15] MEDS: Nystatin TOP POWDER 15 GM BTL TOPICAL SCH (22:23)
[2021-06-16] MEDS: Albuterol HFA INHALER 8 gm MDI INH SCH ×4 (01:27→22:05)
[2021-06-16] MEDS: Tiotropium Brom/Olodaterol MDI INH SCH (08:32)
[2021-06-16] MEDS: Isosorbide Mononit ER 30mg TAB PO SCH (10:03)
[2021-06-16] MEDS: Nystatin TOP POWDER 15 GM BTL TOPICAL SCH ×3 (10:04→20:56)
[2021-06-16] MEDS: Linezolid 600 MG/ 300 ML IVPB SCH ×2 (12:03→23:13)
[2021-06-16] MEDS: Ondansetron 4 mg VIAL 2 MG/ML 2 ml VIAL IV PRN (17:38)
[2021-06-16] MEDS: Insulin GLARGINE 100 un/ml 10 ml VIAL SUBCUT SCH (20:54)
[2021-06-17] MEDS: Albuterol HFA INHALER 8 gm MDI INH SCH ×4 (01:20→21:15)
[2021-06-17 06:03] LABS: ABS Eosinophils 0.1 10^3/ul (0-0.6); ABS Lymphocytes 1.2 10^3/ul (1.0-4.8); ABS Monocytes 0.7 10^3/ul (0-0.8); ABS Neutrophils 6.7 10^3/ul (1.5-7.7); Eosinophil % 1.2 %; Hematocrit 28 % (42-52); Lymphocyte % 13.6 %; Mean Corpuscular HGB Conc 33 g/dL (31-36); Mean Corpuscular Hemoglobin 32 pg (27-31); Mean Corpuscular Volume 98 fL (80-94); Mean Platelet Volume 7.8 fL (7.4-10.4); Platelet Count 159 10^3/uL (150-450); Red Blood Count 2.82 10^6 /uL (4.18-5.48); Red Cell Distribution Width 15 % (10-15); White Blood Count 8.7 10^3/uL (3.5-10.8)
[2021-06-17 06:26] LABS: Calcium 9.3 mg/dL (8.6-10.3); Potassium 4.2 mmol/L (3.5-5.0)
[2021-06-17] MEDS: Tiotropium Brom/Olodaterol MDI INH SCH (08:08)
[2021-06-17] MEDS: Isosorbide Mononit ER 30mg TAB PO SCH (09:23)
[2021-06-17] MEDS: Nystatin TOP POWDER 15 GM BTL TOPICAL SCH ×3 (09:26→21:10)
[2021-06-17] MEDS: Linezolid 600 MG/ 300 ML IVPB SCH ×2 (11:37→22:17)
[2021-06-17] MEDS: Insulin GLARGINE 100 un/ml 10 ml VIAL SUBCUT SCH (21:09)
[2021-06-18] MEDS: Ondansetron 4 mg VIAL 2 MG/ML 2 ml VIAL IV PRN (01:06)
[2021-06-18 05:57] LABS: ABS Eosinophils 0.3 10^3/ul (0-0.6); ABS Lymphocytes 1.1 10^3/ul (1.0-4.8); ABS Monocytes 0.7 10^3/ul (0-0.8); ABS Neutrophils 5.8 10^3/ul (1.5-7.7); Eosinophil % 3.9 %; Hematocrit 30 % (42-52); Hemoglobin 9.8 g/dL (14.0-18.0); Lymphocyte % 13.6 %; Mean Corpuscular HGB Conc 33 g/dL (31-36); Mean Corpuscular Hemoglobin 32 pg (27-31); Mean Corpuscular Volume 97 fL (80-94); Mean Platelet Volume 7.6 fL (7.4-10.4); Nucleated Red Blood Cells % 0.1; Platelet Count 172 10^3/uL (150-450); Red Blood Count 3.04 10^6 /uL (4.18-5.48); Red Cell Distribution Width 14 % (10-15); White Blood Count 7.9 10^3/uL (3.5-10.8)
[2021-06-18 06:08] LABS: Calcium 9.1 mg/dL (8.6-10.3); Magnesium 1.5 mg/dL (1.9-2.7)
[2021-06-18] MEDS: Albuterol HFA INHALER 8 gm MDI INH SCH ×2 (08:17→08:19)
[2021-06-18] MEDS: Tiotropium Brom/Olodaterol MDI INH SCH (08:19)
[2021-06-18] MEDS ORDERED: Magnesium Sulfate IV 3 GM in NS 0.9% 100 ml BAG 100 ML IVPB ONE (09:04)
[2021-06-18] MEDS: Nystatin TOP POWDER 15 GM BTL TOPICAL SCH ×3 (09:22→22:04)
[2021-06-18] MEDS: Isosorbide Mononit ER 30mg TAB PO SCH (09:22)
[2021-06-18] MEDS ORDERED: Albuterol HFA INHALER 8 gm MDI INH PRN (09:32)
[2021-06-18] MEDS: Linezolid 600 MG/ 300 ML IVPB SCH ×2 (11:12→22:02)
[2021-06-18] MEDS ORDERED: Propofol 10 MG/ML 20 ML BTL ONE (15:52)
[2021-06-18] MEDS ORDERED: Ondansetron 4 mg VIAL 2 MG/ML 2 ml VIAL ONE (15:52)
[2021-06-18] MEDS ORDERED: Lidocaine 2% PF 5 ML VIAL ONE (15:52)
[2021-06-18] MEDS ORDERED: Rocuronium 50 mg VIAL 10 mg/ml 5 ml VIAL (50 mg) ONE ×2 (15:54)
[2021-06-18] MEDS ORDERED: Phenylephrine 40 mcg/mL 10mL (400mcg) SYRINGE ONE ×2 (16:25→16:43)
[2021-06-18] MEDS: Insulin GLARGINE 100 un/ml 10 ml VIAL SUBCUT SCH (22:03)
[2021-06-19] MEDS: Tiotropium Brom/Olodaterol MDI INH SCH (10:13)
[2021-06-19] MEDS: Linezolid 600 MG/ 300 ML IVPB SCH (10:56)
[2021-06-19] MEDS: Isosorbide Mononit ER 30mg TAB PO SCH (11:02)
[2021-06-19] MEDS: Nystatin TOP POWDER 15 GM BTL TOPICAL SCH (11:04)
[2021-06-19 17:41] VITALS: BP 124/53
== END 2021-06-19 17:34 | disposition home or self-care (01) | DRG 720 ==
LOC: ED 14:50 → SUATTDRO 20:23 → MEDTELE 20:23
PROVIDERS: ADMIT Hospitalist; ATTEND Hospitalist
PROC: O.CATEE (2021-06-18 15:45)